=== PATIENT | male | born 1975 | race Caucasian/White ===

== ENCOUNTER → 2020-02-21 11:31 | Outpatient (BNVA) | payer OTHER, SELFPAY | PROVIDERS: PCP Nurse Practitioner Family; Visit Provider Surgery | DX: Z76.89 Persons encountering health services in other specified circumstances (principal) ==

== ENCOUNTER 2020-04-03 19:54 | Emergency (ER) | payer OTHER, SELFPAY ==
[2020-04-03 20:13] VITALS: BP 105/85; BP 115/84; PULSE 108; PULSE 99; RESP 15; TEMP 36.5; O2SAT 95; O2SAT 99; BMI 27.9
--- NOTE | 2020-04-03 20:36 | XR_ITS ---
EXAMINATION: XR CHEST CLINICAL INFORMATION: Chest pain COMPARISON: Chest x-ray 03/02/2020 TECHNIQUE: Frontal portable view of the chest was obtained. 8:40 PM FINDINGS: No significant abnormality is noted involving the heart, lungs, mediastinum, bony thorax or soft tissues. XR/XR chest 1V IMPRESSION: Unremarkable examination.
--- NOTE | 2020-04-03 20:36 | ED.OVERDOSE ---
HPI - Overdose General Chief Complaint: Overdose Stated Complaint: INCREASED WEAKNESS Time Seen by Provider: 04/03/20 20:34 History of Present Illness HPI Narrative: Patient is a 44-year-old male with a history of breast mass, status post resection about a month ago. Presented today with having chest pain that has been continuous for the last month or so. Patient because of the pain decided to take a Percocet from a friend. Subsequently got more nauseous. Patient denies any diaphoresis. No fever no chills. No coughing or congestion or upper respiratory symptoms. No diaphoresis. Positive history of hypertension. Ex-smoker last smokes 6 years ago. No history of high cholesterol. Never had a heart attack. Never had a stroke. Patient is from home. Never had a stress test. Related Data Home Medications Medication Instructions Recorded Confirmed citalopram 10 mg tablet 10 mg PO DAILY 02/20/20 02/21/20 quetiapine 300 mg tablet 300 mg PO BEDTIME 02/20/20 02/21/20 ibuprofen 600 mg tablet 600 mg PO Q6H PRN 02/21/20 02/21/20 losartan 25 mg tablet 25 mg PO DAILY 02/21/20 02/21/20 Previous Rx's Medication Instructions Recorded gabapentin 600 mg tablet 600 mg PO BID 30 Days #60 tab 03/13/20 Allergies Allergy/AdvReac Type Severity Reaction Status Date / Time No Known Allergies Allergy Verified 04/03/20 20:13 [No Known Allergies*] Review of Systems Review of Systems: Constitutional: No Weight loss, No Fever, No Chills, No Night Sweats, No Fatigue, No Malaise ENT/Mouth: No Hearing loss, No Ear Pain, No Nasal Congestion, No Sinus Pain, No Hoarseness, No sore throat, No Rhinorrhea, No Swallowing Difficulty Eyes: No Eye Pain, No Swelling, No Redness, No Foreign Body, No Discharge, No Vision Changes Cardiovascular: No Chest Pain, No SOB, No Dyspnea on Exertion, No Orthopnea, No Edema, No Palpitations Respiratory: No Cough, No Sputum, No Wheezing, No Smoke Exposure, No Dyspnea Gastrointestinal: No Nausea, No Vomiting, No Diarrhea, No Constipation, No abdominal Pain, No Hematochezia, No Melena Genitourinary: no irregular bleeding, No Dysuria, No Urinary Frequency, No Hematuria, No Urinary Incontinence, No Urgency, No Flank Pain, No Urinary Flow Changes, No Hesitancy Musculoskeletal: No joint pain, No Myalgias, No Joint Swelling Skin: No Skin Lesions, No rash Neuro: No Weakness, No Numbness, No Paresthesias, No Loss of Consciousness, No Dizziness, No Headache Psych: No Anxiety/Panic, No Depression, No SI/HI/AH/VH, No Social Issues, Heme/Lymph: No Bruising, No Bleeding,No Lymphadenopathy Endocrine: No Polyuria, No Polydipsia, No Temperature Intolerance [facility] Past Medical History Attestation statement: The following information was validated with the patient. Medical History History of gynecomastia (~02/13/20) Surgical History History of vasectomy Family History Family History Mother History of breast cancer Social History Social History Alcohol intake: never Smoking Status: Never smoker Use of substances other than those prescribed or required for medical reasons: Yes Substance Use Type: Painkillers Last Used Substance: Just Prior to Admission Advance Directives: No Advance Directives Information Provided: Yes Physical Exam Vital Signs: Vital Signs: Last Vital Signs Temp 97.7 F 04/03/20 23:35 Pulse 90 04/03/20 23:35 Resp 12 04/03/20 23:35 BP 104/62 04/03/20 23:35 Pulse Ox 97 04/03/20 23:35 Body Mass Index 27.9 Appearance: Alert. Oriented X3. No acute distress. Eyes: Pupils equal, round and reactive to light. ENT: Pharynx normal. Neck: Normal inspection. Neck supple. No lymph nodes noted. No crepitus CVS: Normal heart rate and rhythm. Pulses normal. Normal S1 and S2 Respiratory: No respiratory distress. Breath sounds normal. No Wheezing. No rales Abdomen: Soft and nontender. No rigidity. No distention. good BS x4 Skin: Skin warm and dry. Normal skin color. Normal skin turgor. Extremities: No lower extremity edema. Neurovascular intact to all extremities. No Lacerations. No Rash Neuro: Oriented X 3. No motor deficit. No sensory deficit. Moving all extermities. No slurred speech MDM - Overdose MDM Narrative Medical decision making narrative: Patient took doses of Percocet from the street subsequently became very nauseous. Patient's EKG showed a sinus pattern AK QRS QT within normal limits. There is no ST segment elevation. Patient's electrolytes were unremarkable. Monitor in the emergency department. One set of cardiac enzyme were ordered they were negative. They were ordered because patient had persistent pain greater than 6 hours that was atypical. Patient's heart score is less than 3 given risk factor atypical history normal EKG and normal troponin. Will have patient closely follow up on a outpatient basis. In stable condition. Patient's chest x-ray showed no evidence of rib fracture. There is no evidence of pneumothorax. Patient's D-dimer is less than 200 there is no evidence for having a blood clot. Will discharge patient home. Close follow-up on an outpatient basis. Differential Diagnosis Differential diagnosis: Likely poisoning by opiate or related narcotic Medical Records Attestation: I reviewed the patient's medical records. Lab Data Attestation: I reviewed the patient's lab results. Result diagrams: 04/03/20 21:17 04/03/20 21:17 Labs: Lab Results 04/03/20 04/03/20 04/03/20 Range/Units 21:17 21:17 21:17 WBC 10.7 (4.8-10.8) X10*3/uL RBC 4.11 L (4.60-5.80) X10*6/uL Hgb 12.5 L (14.0-18.0) g/dl Hct 37.6 L (42-52) % MCV 91.5 (80-98) fL MCH 30.4 (27.0-33.0) pg MCHC 33.2 (31.0-36.0) g/dl RDW 12.3 (11.0-16.0) % Plt Count 221 (160-400) X10*3/uL MPV 9.8 (9.4-12.4) fL Immature Gran % (Auto) 0.3 (0.0-0.4) % Neut % (Auto) 80.2 H (45-73) % Lymph % (Auto) 13.1 L (20-40) % Curry % (Auto) 5.7 (2-11) % Eos % (Auto) 0.4 (0-4) % Baso % (Auto) 0.3 (0-2) % Lymph # (Auto) 1.4 (1.2-4.9) X10*3/uL Curry # (Auto) 0.6 (0.1-1.2) X10*3/uL Eos # (Auto) 0.0 (0.0-0.4) X10*3/uL Baso # (Auto) 0.0 (0.0-0.2) X10*3/uL Abs Immat Gran (auto) 0.03 (0.00-0.03) X10*3/uL Absolute Neuts (auto) 8.6 H (2.0-8.3) X10*3/uL Absolute Nucleated RBC 0.000 (0.0-0.012) X10*3/uL Nucleated RBC % (auto) 0.0 (0.0-0.2) /100WBC D-Dimer NG/ML Sodium 141 (135-145) mmol/L Potassium 4.4 (3.3-5.1) mmol/l Chloride 106 (96-108) mmol/L Carbon Dioxide 28 (22-29) mmol/L Anion Gap 11 L (12-20) BUN 9 (9-16) mg/dL Creatinine 0.96 (0.5-1.4) mg/dL Estim Creat Clear Calc 112.2 Estimated GFR > 60 Random Glucose 102 (60-115) mg/dL Calcium 8.7 (8.4-10.2) mg/dL Total Bilirubin 0.7 (0.0-1.0) mg/dL Direct Bilirubin 0.3 (0.0-0.5) mg/dL AST 20 (5-37) U/L ALT 44 H (0-40) U/L Alkaline Phosphatase 36 L (39-117) U/L Troponin I High Sens < 3.5 (<3.5-35.0) ng/L Total Protein 6.2 L (6.5-8.0) g/dL Albumin 4.3 (3.5-5.0) g/dL Lipase 20 (8-78) U/L Salicylates < 5.0 L (15-30) mg/dL Acetaminophen < 1 (<30) mcg/mL Ethyl Alcohol mg/dL 04/03/20 04/03/20 Range/Units 21:17 23:39 WBC (4.8-10.8) X10*3/uL RBC (4.60-5.80) X10*6/uL Hgb (14.0-18.0) g/dl Hct (42-52) % MCV (80-98) fL MCH (27.0-33.0) pg MCHC (31.0-36.0) g/dl RDW (11.0-16.0) % Plt Count (160-400) X10*3/uL MPV (9.4-12.4) fL Immature Gran % (Auto) (0.0-0.4) % Neut % (Auto) (45-73) % Lymph % (Auto) (20-40) % Curry % (Auto) (2-11) % Eos % (Auto) (0-4) % Baso % (Auto) (0-2) % Lymph # (Auto) (1.2-4.9) X10*3/uL Curry # (Auto) (0.1-1.2) X10*3/uL Eos # (Auto) (0.0-0.4) X10*3/uL Baso # (Auto) (0.0-0.2) X10*3/uL Abs Immat Gran (auto) (0.00-0.03) X10*3/uL Absolute Neuts (auto) (2.0-8.3) X10*3/uL Absolute Nucleated RBC (0.0-0.012) X10*3/uL Nucleated RBC % (auto) (0.0-0.2) /100WBC D-Dimer < 200 NG/ML Sodium (135-145) mmol/L Potassium (3.3-5.1) mmol/l Chloride (96-108) mmol/L Carbon Dioxide (22-29) mmol/L Anion Gap (12-20) BUN (9-16) mg/dL Creatinine (0.5-1.4) mg/dL Estim Creat Clear Calc Estimated GFR Random Glucose (60-115) mg/dL Calcium (8.4-10.2) mg/dL Total Bilirubin (0.0-1.0) mg/dL Direct Bilirubin (0.0-0.5) mg/dL AST (5-37) U/L ALT (0-40) U/L Alkaline Phosphatase (39-117) U/L Troponin I High Sens (<3.5-35.0) ng/L Total Protein (6.5-8.0) g/dL Albumin (3.5-5.0) g/dL Lipase (8-78) U/L Salicylates (15-30) mg/dL Acetaminophen (<30) mcg/mL Ethyl Alcohol < 10 mg/dL ECG Data Interpretation: Sinus heart rate is 80 AK QRS QT within normal limits there is no ST segment elevation noted. Discharge Plan Discharge Clinical Impression: Chest pain, Nausea, Narcotic overdose Patient Disposition: Home, Self-Care Instructions: Chest Pain (ED), Narcotic Safety (ED) Prescriptions: No Action gabapentin 600 mg tablet 600 mg PO BID 30 Days Qty: 60 RF: 1 ibuprofen 600 mg tablet 600 mg PO Q6H PRN (Reason: pain) RF: 0 losartan 25 mg tablet 25 mg PO DAILY RF: 0 quetiapine [Seroquel] 300 mg tablet 300 mg PO BEDTIME RF: 0 citalopram [Celexa] 10 mg tablet 10 mg PO DAILY RF: 0 Referrals: Jorge Solis, [facility] [Primary Care Provider] - 2 days (Please stop using narcotics given by your friend. Doing this could kill you. Please go to detox.)
--- NOTE | 2020-04-03 20:39 | ECG_ITS ---
Test Reason : OVERDOSE Blood Pressure : / mmHG Vent. Rate : 084 BPM Atrial Rate : 084 BPM P-R Int : 162 ms QRS Dur : 080 ms QT Int : 350 ms P-R-T Axes : 045 033 034 degrees QTc Int : 413 ms Normal sinus rhythm Normal ECG When compared with ECG of 01-NOV-2019 19:24, Heart rate has decreased Referred By: Malgorzata Tavarez Electronically Signed By:LIDIA BARON MD
[2020-04-03 20:58] VITALS: BP 104/68; PULSE 97; RESP 11; TEMP 36.4; O2SAT 97
[2020-04-03] MEDS: 0.9 % Sodium Chloride 1,000 ML 999 ML IVCONT (21:06)
[2020-04-03 21:41] LABS: Basophils Percent Auto 0.3 % (0-2); Eosinophils Percent Auto 0.4 % (0-4); Hematocrit 37.6 % (42-52); Hemoglobin 12.5 g/dl (14.0-18.0); Imm Gran Abs Auto 0.03 X10*3/uL (0.00-0.03); Imm Gran Pct Auto 0.3 % (0.0-0.4); Lymphocytes Absolute Auto 1.4 X10*3/uL (1.2-4.9); Lymphocytes Percent Auto 13.1 % (20-40); MANUAL DIFF FLAG NO; Mean Corpuscular HGB Conc 33.2 g/dl (31.0-36.0); Mean Corpuscular Hemoglobin 30.4 pg (27.0-33.0); Mean Corpuscular Volume 91.5 fL (80-98); Mean Platelet Volume 9.8 fL (9.4-12.4); Monocytes Absolute Auto 0.6 X10*3/uL (0.1-1.2); Monocytes Percent Auto 5.7 % (2-11); Neutrophils Absolute Auto 8.6 X10*3/uL (2.0-8.3); Neutrophils Percent Auto 80.2 % (45-73); Platelet Count 221 X10*3/uL (160-400); Red Blood Count 4.11 X10*6/uL (4.60-5.80); Red Cell Distribution Width 12.3 % (11.0-16.0); White Blood Count 10.7 X10*3/uL (4.8-10.8)
[2020-04-03 22:13] LABS: Ethanol < 10 mg/dL
[2020-04-03 22:18] LABS: Alanine Aminotransferase 44 U/L (0-40); Albumin Level 4.3 g/dL (3.5-5.0); Alkaline Phosphatase 36 U/L (39-117); Anion Gap 11 (12-20); Aspartate Amino Transferase 20 U/L (5-37); Bilirubin Direct 0.3 mg/dL (0.0-0.5); Bilirubin Total 0.7 mg/dL (0.0-1.0); Blood Urea Nitrogen 9 mg/dL (9-16); Calcium 8.7 mg/dL (8.4-10.2); Carbon Dioxide 28 mmol/L (22-29); Chloride 106 mmol/L (96-108); Creatinine Clr Calc Pharmacy 112.2; Estimated Glomerular Filt Rate > 60; Glucose Random 102 mg/dL (60-115); Lipase 20 U/L (8-78); Potassium 4.4 mmol/l (3.3-5.1); Salicylate < 5.0 mg/dL (15-30); Sodium 141 mmol/L (135-145); Total Protein 6.2 g/dL (6.5-8.0)
[2020-04-03 22:20] LABS: Troponin-I High Sensitivity < 3.5 ng/L (<3.5-35.0)
[2020-04-03 23:06] VITALS: BP 98/54; PULSE 79; RESP 18; TEMP 36.9; O2SAT 98
[2020-04-03 23:35] VITALS: BP 104/62; PULSE 90; RESP 12; TEMP 36.5; O2SAT 97
[2020-04-03 23:41] LABS: Acetaminophen LAB < 1 mcg/mL (<30)
[2020-04-03 23:55] LABS: D Dimer < 200 NG/ML
[2020-04-04 00:31] VITALS: BP 97/66; PULSE 95; RESP 12; TEMP 36.9; O2SAT 95
== END 2020-04-04 00:32 | disposition home or self-care (01) ==
PROVIDERS: Emergency Provider Emergency Medicine Emergency Medical Services; PCP Nurse Practitioner Family
DX: R07.9 Chest pain, unspecified (principal); T40.1X1A Poisoning by heroin, accidental (unintentional), initial encounter; R11.0 Nausea; Y92.9 Unspecified place or not applicable; Z79.899 Other long term (current) drug therapy
CPT/HCPCS: 36415; 71045; 80053; 80076; 80320; 82248; 83690; 84484; 85025; 85379; 93005; 96360; 99284; 99285; G0480

== ENCOUNTER 2020-04-05 20:22 | Emergency (ER) | payer OTHER, SELFPAY ==
[2020-04-05 20:29] VITALS: BP 115/80; BP 128/91; PULSE 106; PULSE 112; RESP 18; TEMP 36.8; O2SAT 97; O2SAT 98; BMI 27.9
--- NOTE | 2020-04-05 20:43 | PC.NURSE ---
PT S/F IN BED, RR EVEN UNLABORED, SKIN WPD, AOX3. PT REPORTS TAKING 2-3 5MG PERCOCET FOR PAIN RELIEF AND NEXT THING HE KNEW HE WAS WAKING UP ON THE FLOOR WITH FAMILY AND EMS NEXT TO HIM. THIS RN SPOKE WITH PT'S MOTHER WHO REQUESTED HE BE SECTIONED D/T OVERDOSING 3X THIS WEEK, SHE IS CONCERNED HE IS A SELF HARM RISK. PT ADAMANTLY DENIES SI, DENIES ANY SELF HARM INTENT. PT REPORTS FEELING GENERALLY UNWELL, NO SPECIFIC COMPLAINTS. PT CHANGED INTO HOSPITAL ATTIRE, BELONGINGS PLACED IN LOCKER #10. PT AWAITING PRIMARY PROVIDER WALKER, NATE, JAM, NSR ON TELE.
--- NOTE | 2020-04-05 20:49 | ED.OVERDOSE ---
HPI - Overdose General Chief Complaint: Overdose Stated Complaint: od Time Seen by Provider: 04/05/20 20:49 Source: patient Mode of arrival: EMS Limitations: no limitations History of Present Illness HPI Narrative: This is a 44-year-old male who is brought in by EMS after he states he took 2-3 5 mg old Percocets that he has had for number of months and then he states that he fell asleep but denies that this was any attempt to take his life and clearly states that no I coli 1 live it was complete accident and I feel like a full . As per EMS note patient's mother had found the patient unresponsive, initiated CPR briefly, EMS administered 4 mg of Narcan with immediate response. In addition, patient received 4 mg of Zofran by EMS. Otherwise, patient denies any recent fevers, chills, feelings of depression, suicidal ideation. Related Data Home Medications Medication Instructions Recorded Confirmed citalopram 10 mg tablet 10 mg PO DAILY 02/20/20 02/21/20 quetiapine 300 mg tablet 300 mg PO BEDTIME 02/20/20 02/21/20 ibuprofen 600 mg tablet 600 mg PO Q6H PRN 02/21/20 02/21/20 losartan 25 mg tablet 25 mg PO DAILY 02/21/20 02/21/20 Previous Rx's Medication Instructions Recorded gabapentin 600 mg tablet 600 mg PO BID 30 Days #60 tab 03/13/20 Allergies Allergy/AdvReac Type Severity Reaction Status Date / Time No Known Allergies Allergy Verified 04/03/20 20:13 [No Known Allergies*] Review of Systems Review of Systems: Pertinent positives and negatives as stated in HPI and 10 point review of systems is otherwise negative. [facility] Past Medical History Source: nursing notes reviewed Medical History Bipolar 1 disorder History of gynecomastia (~02/13/20) Hypertension Surgical History History of vasectomy Family History Family History Mother History of breast cancer Social History Social History Alcohol intake: never Smoking Status: Never smoker Use of substances other than those prescribed or required for medical reasons: Yes Substance Use Type: Opiates Substance Use Frequency: Recent Binge Last Used Substance: Just Prior to Admission Any prior treatment program specific to substance use: No Advance Directives: No Physical Exam Vital Signs: Vital Signs: Last Vital Signs Temp 97.9 F 04/05/20 22:00 Pulse 100 04/05/20 22:00 Resp 16 04/05/20 22:00 BP 111/82 04/05/20 22:00 Pulse Ox 99 04/05/20 22:00 Body Mass Index 27.9 VITAL SIGNS: Reviewed. GENERAL: Well developed, well nourished, in no acute distress. HEAD: Normocephalic/atraumatic, EYES: PERRLA, EOMI intact without pain, no nystagmus/pallor/icterus noted EARS: Ext canals without abnormality, TMs non-bulging and non-erythematous NOSE: Nares patent bilateral OROPHARYNX: no oral lesions noted, posterior pharynx clear and non-erythematous without noted tonsillar enlargement/erythema/exudates NECK: Supple, no adenopathy LUNGS: Normal breath sounds. No adventitious sounds or accessory muscle use. SpO2<97> CARDIOVASCULAR: Regular rate and rhythm without noted murmurs, no JVD or lower extremity edema. ABDOMEN: Soft, non-tender, non-distended with bowel sounds. No rigidity. No guarding. No palpable masses or hernias noted MUSCULOSKELETAL: No tenderness, deformities, or effusions noted on gross inspection. EXTREMITIES: No cyanosis, clubbing or edema. SKIN: Inspection of the skin reveals no rashes, ulcerations, jaundice, pallor, or petechiae. NEUROLOGIC: Alert and oriented x 4. Strength and sensation to light touch were grossly intact x 4. Course Course Course Narrative: This is a 44-year-old male with history and clinical presentation consistent with Percocet overdose and although patient denies any feelings of wanting to harm himself the mother has called couple of times in discussed with Nursing her concerns regarding his state of mind stating that this is his 3rd time of overdosing this week . On review emergency room documentation it is noted the patient was evaluated on 04/03/2020 for complaints of chest pain 1 month postop of breast mass removal. The provider at that time describes a workup for atypical chest pain, however makes no note regarding overdose however does note that patient had taken a Percocet off of the street. The Care Team came by and provided the patient with additional outpatient resources and reaffirms that patient does not have thoughts of harming himself. On further discussion with the patient he states he did have a remote history of a suicide attempt this was done via hanging and circumstances surrounding that were emotional distress regarding a relationship. However, he denies any subsequent attempts on his life and again repeats that he has no intention harming himself and that this evening was a complete accident. Patient is felt to be a safe discharge to home and will be contacting his son for transport. Patient will be discharged with home Narcan. Discharge Plan Discharge Clinical Impression: Overdose Qualifiers: Encounter type: initial encounter Injury intent: accidental or unintentional Qualified Code(s): T50.901A - Poisoning by unspecified drugs, medicaments and biological substances, accidental (unintentional), initial encounter Patient Disposition: Home, Self-Care Instructions: Adult Overdose (ED) Additional Instructions: Recommend [id number] lidocaine patches that are available in any drug store for your concerns regarding nipple burning. If you are feeling depressed or as though you would prefer to cause harm to yourself please do not hesitate to return immediately to the emergency department by calling 911. The patient and/or family acknowledge understanding of results (as applicable), diagnosis, treatment plan, need for follow up, and symptoms that should prompt a return to the emergency room. Prescriptions: No Action gabapentin 600 mg tablet 600 mg PO BID 30 Days Qty: 60 RF: 1 ibuprofen 600 mg tablet 600 mg PO Q6H PRN (Reason: pain) RF: 0 losartan 25 mg tablet 25 mg PO DAILY RF: 0 quetiapine [Seroquel] 300 mg tablet 300 mg PO BEDTIME RF: 0 citalopram [Celexa] 10 mg tablet 10 mg PO DAILY RF: 0 Referrals: Physician,Unknown [Primary Care Provider] - 2 days
--- NOTE | 2020-04-05 21:52 | MHC.CARE ---
CARE team met with this patient in ED9 at staff request to offer recovery supports. Patient reports he had an accidental overdose on two old percocets that he states were his own prescription. Patient was at times not an accurate historian. Patient report sometimes was in contradiction to his medical record. Patient denies SI/HI/AVH and reports no safety concerns. CARE team spoke to patient about pain management and having a conversation with his doctor on Tuesday (patient has a scheduled appointment) as his current med regimen is still leaving him in pain. Patient had surgery a few weeks ago, and is also in need of a repair on a surgery from his 20s. CARE team attempted to talk to patient about ways to avoid putting himself in unnecessary risk. Provided empathic listening and support and emphasized that pain can often cause us to make illogical or unsafe decisions in the search for relief. Patient was able to engage in the conversation but repeats that he is not a risk and has learned [his] lesson. Asks if ED staff can have his son pick him up when he is ready to be discharged, and states he is very thirsty. CARE team coordinated with patient's nurse. Provided patient with printed recovery resources. Patient does not appear receptive to engaging in any additional treatment at this time.
[2020-04-05 22:00] VITALS: BP 111/82; PULSE 100; RESP 16; TEMP 36.6; O2SAT 99
== END 2020-04-05 23:03 | disposition home or self-care (01) ==
PROVIDERS: Emergency Provider Student in an Organized Health Care Education/Training Program
DX: T40.2X1A Poisoning by other opioids, accidental (unintentional), initial encounter (principal); Y92.9 Unspecified place or not applicable; Z79.899 Other long term (current) drug therapy
CPT/HCPCS: 99284; 99285

== ENCOUNTER 2020-04-25 13:27 | Outpatient (REF) | payer OTHER, SELFPAY ==
--- NOTE | 2020-04-25 13:30 | US_ITS ---
EXAMINATION: US SCROTUM CLINICAL INFORMATION: Scrotal pain. COMPARISON: None TECHNIQUE: A sonogram of the scrotum was performed assessing wagner-scale appearance and color Doppler flow. Spectral Doppler analysis of the arterial and venous flow were performed in the testes bilaterally. FINDINGS: RIGHT: Right testicle measures 4.2 x 2.2 x 2.7 cm, volume 13.0 mL. No focal testicular parenchymal lesions are visualized. There is normal bilateral symmetric intratesticular color flow. Right epididymal head is normal in size. No right hydrocele or varicocele is seen. LEFT: Left testicle measures 3.6 x 2.5 x 2.6 cm, volume 12.0 mL. No focal testicular parenchymal lesions are visualized. There is normal bilateral symmetric intratesticular color flow. Left epididymal head is normal in size. There is a tiny epididymal head cysts measuring only 4 x 3 x 2 mm. No left hydrocele or varicocele is seen. US/US scrotum IMPRESSION: 1. Testicles symmetric in size and color flow. No intratesticular mass. 2. Small left epididymal head cyst under 5 mm. No hydrocele.
== END 2020-04-25 13:28 | disposition home or self-care (01) ==
LOC: HO.HMGCX 13:27
PROVIDERS: PCP Nurse Practitioner Family; Visit Provider Nurse Practitioner Family
DX: N50.82 Scrotal pain (principal)
CPT/HCPCS: 76870

== ENCOUNTER 2020-05-05 12:09 | Outpatient (REF) | payer OTHER, SELFPAY | END 2020-05-05 12:10 | disposition home or self-care (01) | LOC: HO.LAB 12:09 | PROVIDERS: PCP Nurse Practitioner Family; Visit Provider Internal Medicine | DX: Z20.828 Contact with and (suspected) exposure to other viral communicable diseases (principal) | CPT/HCPCS: C9803; U0003 ==

== ENCOUNTER → 2020-05-06 08:55 | Outpatient (BNVA) | payer OTHER, SELFPAY | PROVIDERS: PCP Nurse Practitioner Family; Referring Provider Nurse Practitioner Family; Visit Provider Surgery | DX: N62 Hypertrophy of breast (principal) | CPT/HCPCS: 99212 ==

== ENCOUNTER 2020-05-13 10:37 | Outpatient (REF) | payer OTHER, SELFPAY ==
[2020-05-14 07:42] LABS: Syphilis Screen Nonreactive (Nonreactive)
[2020-05-14 09:20] LABS: HIV AB/AG Nonreactive (Nonreactive); HIV Num 1 0.16 S/CO (0.00-0.99)
[2020-05-14 14:17] LABS: N. gonorrhoeae RNA TMA NOT DETECTED (NOT DETECTED)
[2020-05-15 15:20] LABS: C. trachomatis RNA TMA NOT DETECTED (NOT DETECTED)
== END 2020-05-13 10:38 | disposition home or self-care (01) ==
LOC: HO.HMGCLDS 10:37
PROVIDERS: PCP Nurse Practitioner Family; Visit Provider Nurse Practitioner Family
DX: Z11.3 Encounter for screening for infections with a predominantly sexual mode of transmission (principal)
CPT/HCPCS: 86780; 87389; 87491; 87591

== ENCOUNTER → 2020-05-22 08:56 | Outpatient (BNVA) | payer OTHER, SELFPAY | PROVIDERS: PCP Nurse Practitioner Family; Referring Provider Nurse Practitioner Family; Visit Provider Urology | DX: N50.819 Testicular pain, unspecified (principal) | CPT/HCPCS: 99202 ==

== ENCOUNTER 2020-05-28 07:14 | Day surgery (SDC) | payer OTHER, SELFPAY ==
[2020-05-19 17:43] VITALS: BMI 27.9
--- NOTE | 2020-05-27 10:57 | HO.ANESPROP2 ---
Documented by User: Millie Cardenas 05/27/20 11:02 HPI - Anesthesia Eval Consult details Narrative: 45yo M for Breast Mass Excision, Left Right breast mass excision 01/2020 with [facility] 5 PMFSH Past Medical History Medical History Back pain Bipolar 1 disorder History of gynecomastia (~02/13/20) Hypertension Opioid abuse Family History Family History Mother History of breast cancer Surgical History Surgical History History of breast lump/mass excision History of vasectomy Social History Social History Alcohol intake: never Smoking Status: Former smoker Smoked in Last 30 Days: No Smoking Quit Date: 2013 Use of substances other than those prescribed or required for medical reasons: No Substance Use Type: Opiates Advance Directives: Yes Advance Directives Information Provided: Yes Advance Directives on File: Yes Advance Directives Date on File: 05/28/20 Recently lost weight without trying: No Meds Allergies Allergy/AdvReac Type Severity Reaction Status Date / Time No Known Allergies Allergy Verified 05/28/20 07:43 [No Known Allergies*] Home Medications Medication Instructions Recorded Confirmed Type citalopram 10 mg tablet 10 mg PO DAILY 02/20/20 05/19/20 History quetiapine 300 mg tablet 300 mg PO BEDTIME 02/20/20 05/19/20 History Exam Exam Date and Time: May 27, 2020 1057 Height,Weight and Vital Signs: Height 5 ft 10 in Weight 88.451 kg Pertinent Lab Results Pertinent Lab Results: Laboratory Tests 04/03/20 04/03/20 21:17 21:17 WBC 10.7 Hgb 12.5 L Hct 37.6 L Plt Count 221 Sodium 141 Potassium 4.4 Chloride 106 Carbon Dioxide 28 BUN 9 Creatinine 0.96 Narrative Narrative: EKG 03/2020: NSR Assessment and Plan Assessment Anesthesia Assessment: Chart Reviewed Documented by User: Tavo Hamilton 05/28/20 09:42 PMFSH Past Medical History Medical History Back pain Bipolar 1 disorder History of gynecomastia (~02/13/20) Hypertension Opioid abuse Family History Family History Mother History of breast cancer Family history of problems with anesthesia: No Surgical History Surgical History History of breast lump/mass excision History of vasectomy History of Problems with Anesthesia: No Social History Social History Alcohol intake: never Smoking Status: Former smoker Smoked in Last 30 Days: No Smoking Quit Date: 2013 Use of substances other than those prescribed or required for medical reasons: No Substance Use Type: Opiates Advance Directives: Yes Advance Directives Information Provided: Yes Advance Directives on File: Yes Advance Directives Date on File: 05/28/20 Recently lost weight without trying: No Meds Allergies Allergy/AdvReac Type Severity Reaction Status Date / Time No Known Allergies Allergy Verified 05/28/20 07:43 [No Known Allergies*] Home Medications Medication Instructions Recorded Confirmed Type citalopram 10 mg tablet 10 mg PO DAILY 02/20/20 05/19/20 History quetiapine 300 mg tablet 300 mg PO BEDTIME 02/20/20 05/19/20 History Exam Airway Mallampati Class: I TM Dist: >3cm Neck ROM: Full Denture: Upper (Fixed in place, will leave in.) Partial: Lower Loose/Missing/Broken Teeth: No Assessment and Plan Assessment Anesthesia Assessment: Anesthesia Plan Discussed and Chart Reviewed Final Anesthetic Review NPO: Yes ASA Class: II Final Preanesthetic Review: No Changes in Pt Med Stat, Meds/Allgs Chart Reviewed, Consent Obtained/Reviewed and Anes Risks/Benef Reviewed Patient Risk: Low Procedure Risk: Low Anesthetic Plan Anesthetic Plan: Agree w/ Assess. and Plan Disposition: Standard PACU
[2020-05-28 07:48] VITALS: BP 108/72; PULSE 104; RESP 18; TEMP 36.1; O2SAT 99
[2020-05-28] MEDS: Lactated Ringers 1,000 ML 100 ML IVCONT (08:03)
[2020-05-28] MEDS: ceFAZolin Sodium/Dextrose,Iso 2 GM/50 ML PIGGYBACK IV (08:06)
--- NOTE | 2020-05-28 09:25 | MHC.SHP ---
Pre-Procedural Eval Section A The patient is an INPATIENT: No Changes since office visit: Yes Patient answered all questions; No Cold of Flu in the past 2 weeks, No New Medical Problems and No Changes in Medication The History & Physical has been completed within 30 days and I have reviewed it.: Yes Section B Chief Complaint: hypertrophy of breast Allergies: Allergies Allergy/AdvReac Type Severity Reaction Status Date / Time No Known Allergies Allergy Verified 05/28/20 07:43 [No Known Allergies*] Plan I have reviewed the history and physical and performed a pertinent physical examination on my patient. No changes have occurred unless specified.
[2020-05-28 11:05] VITALS: BP 116/77; PULSE 64; RESP 16; TEMP 36.3; O2SAT 100
[2020-05-28 11:10] VITALS: BP 107/71; PULSE 70; RESP 18; O2SAT 98
--- NOTE | 2020-05-28 11:11 | P.OP_ITS ---
Operative Note Operative Note Date of Service: 05/28/20 Narrative: Preoperative diagnosis: Left gynecomastia Postoperative diagnosis: Same Procedure: Excision of left gynecomastia Transliterator: Nell Evans PA-C Anesthesia: General laryngeal mask Specimen: Left breast tissue Estimated blood loss: 8 cc Immediate complications: None Indications: This is a 45-year-old gentleman who has experienced slow enlargement and increasing tenderness involving the left breast tissue. He has a prior history of excision of right gynecomastia. Excision is planned. Procedure in detail: With patient in supine position after induction of adequate general anesthesia, the left chest wall was prepped with ChloraPrep and was draped sterilely. Time-out procedure was performed. The extent of the excision was marked on the skin. Skin and subcutaneous tissues were infiltrated with local anesthetic an additional local anesthetic infiltration was carried out during the procedure. The periareolar incision was made involving the inferior half of the areolar circumference. Incision was carried into the subcutaneous tissues. Combination of electrosurgical pencil and Metzenbaum dissection was then employed to raise a skin flap to beyond the cephalad aspect of the area of gynecomastia. The deep aspect of the process was then divided from caudad to cephalad using the electrosurgical pencil, and medial and lateral the tissues were divided as the dissection continued. The superior margin was divided last. The wound was copiously irrigated with saline solution and was inspected for bleeding. Minor bleeding was noted and was controlled using the cautery. The inferior skin flap was then developed for a distance of about 2 cm. Subcutaneous tissues were reapproximated using interrupted sutures of 3 0 Polysorb. A quarter-inch Sumner drain was trimmed and was placed in the depth of the wound and brought out through the lateral corner of the incision. Skin was then closed with interrupted dermal sutures of 3-0 Polysorb and a subcuticular suture of 4-0 Polysorb. Steri-Strips and a dry sterile dressing were applied. He tolerated the procedure well and was transported to the recovery room in stable condition. Sponge and sharp counts were correct.
[2020-05-28 11:15] VITALS: BP 117/83; PULSE 70; RESP 18; O2SAT 99
[2020-05-28] MEDS: Ketorolac Tromethamine 15 MG/ML VIAL IVPUSH (11:16)
[2020-05-28] MEDS: Acetaminophen 325 MG TABLET 650 MG PO (11:17)
[2020-05-28] MEDS: oxyCODONE HCl Immed Release 5 MG TABLET 10 MG PO (11:18)
[2020-05-28 11:20] VITALS: BP 110/82; PULSE 66; RESP 18; O2SAT 98
[2020-05-28 11:35] VITALS: BP 111/75; PULSE 63; RESP 20; TEMP 36.2; O2SAT 99
--- NOTE | 2020-05-28 11:57 | HO.POSTANES ---
Post Anesthesia Evaluation Post Anesthesia Evaluation Vital Signs: Vital Signs Temp Pulse Resp BP Pulse Ox 05/28/20 11:35 97.1 F 63 20 111/75 99 05/28/20 11:20 66 18 110/82 98 05/28/20 11:15 70 18 117/83 99 05/28/20 11:10 70 18 107/71 98 05/28/20 11:05 97.4 F 64 16 116/77 100 05/28/20 07:48 96.9 F 104 H 18 108/72 99 Anesthesia: General LMA Mental Status: Awake Pain Control: Satisfactory Nausea/Vomiting: None Hydration: Adequate Anesthesia-Related Issues: No Anes. Related Issues
== END 2020-05-28 12:09 | disposition home or self-care (01) ==
PROVIDERS: PCP Nurse Practitioner Family; Visit Provider Surgery
PROC: (CPT 19120; principal; 2020-05-28 09:00)
DX: N62 Hypertrophy of breast (principal); I10 Essential (primary) hypertension; F31.9 Bipolar disorder, unspecified; F11.10 Opioid abuse, uncomplicated; Z80.3 Family history of malignant neoplasm of breast; Z79.899 Other long term (current) drug therapy
CPT/HCPCS: 19300; 88305; 88307; J0690; J1100; J1885; J2250; J2405; J3010

== ENCOUNTER → 2020-06-11 14:56 | Outpatient (BNVA) | payer OTHER, SELFPAY | PROVIDERS: PCP Nurse Practitioner Family; Visit Provider Surgery | DX: N62 Hypertrophy of breast (principal) | CPT/HCPCS: 99212 ==

== ENCOUNTER 2020-06-24 12:35 | Outpatient (REF) | payer OTHER, SELFPAY | END 2020-06-24 12:36 | disposition home or self-care (01) | LOC: HO.LAB 12:35 | PROVIDERS: PCP Nurse Practitioner Family; Visit Provider Internal Medicine | DX: Z20.822 Contact with and (suspected) exposure to COVID-19 (principal) | CPT/HCPCS: 36415; C9803; U0003; U0005 ==

== ENCOUNTER → 2020-07-01 10:53 | Outpatient (BNVA) | payer OTHER, SELFPAY | PROVIDERS: PCP Nurse Practitioner Family; Visit Provider Nurse Practitioner Family | DX: M47.22 Other spondylosis with radiculopathy, cervical region (principal) | CPT/HCPCS: 99202 ==

== ENCOUNTER → 2020-07-03 09:30 | Outpatient (BNVA) | payer OTHER, SELFPAY | PROVIDERS: PCP Nurse Practitioner Family; Visit Provider Urology | DX: N50.819 Testicular pain, unspecified (principal) | CPT/HCPCS: 64425; 99212 ==

== ENCOUNTER → 2020-07-10 08:10 | Outpatient (BNVA) | payer OTHER, SELFPAY | PROVIDERS: PCP Nurse Practitioner Family; Visit Provider Urology | DX: R10.31 Right lower quadrant pain (principal) | CPT/HCPCS: 64425; 99212 ==

== ENCOUNTER 2020-07-15 07:52 | Outpatient (REF) | payer OTHER, SELFPAY ==
--- NOTE | ~2020-07-15 | XR_ITS ---
EXAMINATION: PRE-MRI SCREENING CLINICAL INFORMATION: Pellet to left lower leg COMPARISON: None TECHNIQUE: 2 views of the left lower leg FINDINGS: Bone alignment is normal. No fracture or dislocation is seen. The joint spaces are normal. The soft tissues are normal. No radiopaque soft tissue foreign body is seen. XR/XR pre mri screening IMPRESSION: No radiopaque soft tissue foreign body seen.
--- NOTE | ~2020-07-15 | MR_ITS ---
MR CERVICAL SPINE WITHOUT CONTRAST CLINICAL INFORMATION: Spondylosis with radiculopathy, cervical region. COMPARISON: Cervical spine radiographs 04/23/2015. TECHNIQUE: MRI of the cervical spine was obtained using routine sequences without contrast. FINDINGS: Cervical alignment is maintained. The vertebral body heights are preserved. Multilevel anterior endplate osteophytes, the largest at the C4-C7 levels. There is no bone marrow edema. There are no acute fractures. Mild disc volume loss at C5-C6. The craniocervical junction is unremarkable. The partially imaged posterior fossa is unremarkable. There is no cord signal abnormality accounting for artifact. The cervical arterial flow voids are maintained. There are no significant soft tissue findings. C2-C3: Disc contour is normal. No central canal stenosis and no foraminal stenosis. C3-C4: Disc contour is normal. No central canal stenosis and no foraminal stenosis. C4-C5: Uncovertebral joint spurring and facet arthropathy result in mild left-sided foraminal encroachment. No central canal and no right foraminal stenosis. C5-C6: Disc contour normal. No central canal stenosis and no foraminal stenosis. C6-C7: Disc osteophyte without central canal stenosis. No foraminal stenosis. C7-T1: Slight annular disc bulge. No central canal stenosis. Uncovertebral joint spurring and facet arthropathy result in mild left-sided foraminal encroachment. MR/MR cervical spine wo con IMPRESSION: Mild cervical spondylosis. No severe central canal stenosis and no severe foraminal stenosis within the cervical spine.
== END 2020-07-15 07:53 | disposition home or self-care (01) ==
LOC: HO.MRI 07:52
PROVIDERS: Visit Provider Anesthesiology
DX: M47.22 Other spondylosis with radiculopathy, cervical region (principal)
CPT/HCPCS: 72141

== ENCOUNTER → 2020-07-18 12:48 | Outpatient (BNVA) | payer OTHER, SELFPAY | PROVIDERS: PCP Nurse Practitioner Family; Visit Provider Urology | DX: R10.31 Right lower quadrant pain (principal) | CPT/HCPCS: 64425; 99212 ==

== ENCOUNTER → 2020-07-25 09:53 | Outpatient (BNVA) | payer OTHER, SELFPAY | PROVIDERS: PCP Nurse Practitioner Family; Visit Provider Urology | DX: R10.31 Right lower quadrant pain (principal); R10.32 Left lower quadrant pain | CPT/HCPCS: 99212 ==

== ENCOUNTER → 2021-01-28 11:26 | Outpatient (BNVA) | payer OTHER, SELFPAY | PROVIDERS: Visit Provider Urology | DX: R10.31 Right lower quadrant pain (principal); R10.32 Left lower quadrant pain | CPT/HCPCS: 99212 ==

== ENCOUNTER 2021-02-27 10:42 | Outpatient (REF) | payer OTHER, SELFPAY ==
[2021-02-27 11:29] LABS: COVID-19 Test Negative (Negative)
== END 2021-02-27 10:43 | disposition home or self-care (01) ==
LOC: HO.LAB 10:42
PROVIDERS: PCP Nurse Practitioner Family; Visit Provider Internal Medicine
DX: Z20.822 Contact with and (suspected) exposure to COVID-19 (principal)
CPT/HCPCS: 36415; 87635; C9803

== ENCOUNTER 2021-03-26 09:00 | Outpatient (RCR) | payer OTHER, SELFPAY ==
--- NOTE | 2021-02-25 14:03 | MHC.PT.EP ---
[facility] [place] Office [place] Office [place] Office [address] Ana Laura Rodriguez [address] [facility] [phone] F: [phone] F: [phone] F: [phone] F: [phone] Physical Therapy Plan of Care Date of Evaluation: Date of Surgery: Diagnosis: Assessment: The patient arrived reporting groin and testicle pain occurring bilaterally. It seems to change with position and activity level. After an orthopedic screen. He had signs of a pinched nerve occurring at L1-2. He has inguinal pain that is provoked with pressure at T12/L1 region. He had weakness in myotome of L1, and he had improvement in groin pain when L1 was gapped positionally. He is an excellent candidate for skilled PT to address his pain, weakness, and decreased functional mobility. He has pain during sexual activity, but it seems to be pain during a posterior pelvic tilt versus use of sexual organ. No pain with erection or ejaculation. No urinary incontinence or fecal incontinence. Pain occurs with bearing down which again causes a PPT. Heavy education was given on a HEP to help reduce pain, sitting and sleeping posture, and body mechanics during sexual activity, bending, lifting and other functional tasks. If no improvement is seen in 2-3 visits I will focus more on groin/nerve pain/injury in the pelvic region. The patient is in aggreance with education. Frequency and Duration: The patient will be seen 2x/week x 4 weeks. Short Term Goals: 1. 1. The patient to demonstrate good sitting posture with use of lumbar roll to decrease lumbar strain. 2. Pt to have improved understanding of proper posture and support while sleeping. 3. Pt to demonstrate understanding of initial HEP. [employer] Goals: 1. Pt to be able to show improved PFM contraction during functional movements such as a bridge or squat to help prevent or limit POP. 2. Pt to be able to return to PLOF such as sexual activity, lifting and bending without limiting pain. 3. Pt to be independent with management of HEP. Treatment Plan: Modalities to reduce pain, spasms and effusion. Manual therapy to restore motion and function. Therapeutic exercise to improve strength and flexibility. Neuromuscular re-education for posture and balance. Therapeutic activities to return to functional activities of daily living. Electronically signed by: Zahida Carrasco PT DPT Please sign and return to therapist. Thank you for your referral.
--- NOTE | 2021-03-13 07:56 | MHC.PT.PR ---
[facility] [place] Office [place] Office [place] Office [address] Ana Laura Rodriguez [address] [phone] F: [phone] F: [phone] F: [phone] F: [phone] Physical Therapy Progress Note Diagnosis: pelvic pain Date of Surgery: Date of Evaluation: 02/25/21 Treatments to Date: 3 Cancellations to Date: No Shows to Date: Subjective: I am still having groin pain. It is very intense. My exercises make my groin pain increase. Pain Score and Location: 8 Objective Measures: please see eval Assessment: Pt improved compliance with HEP. During lumbar traction he feels no groin pain during the pull phase, but pain returns upon relaxation. He had diffuse, general achiness with palpation of the adductor tendon proximally, but no specific pain. Additionally, no pain and good strength noted with resistance of adductors, and hip flexors, and transverse abdominis. Therefore, I am able to r/o a groin muscle injury. I am suspicious of L1 nerve compression causing referred groin pain due to pain that relieves with traction, and decreased pain in prone. Increased pain with flexion which is consistent with a posterolateral derangement of the upper lumbar spine. He may benefit from diagnostic imaging to r/o lumbar spine. Next session I will do a rectal exam to assess his prostate for an increase in size/ pain. He has reported recent urinary changes such as pain with urination and a change in his stream/flow and severe pain with BM's. May need more diagnostic tests to r/o the prostate. Generally his pain is sounding radicular in nature and I will also do nerve glides to obturator, and hip flexor to r/o nerve adhesion. PT Plan: rectal exam to assess prostate size and if it is painful, nerve glides to rule out nerve adhesion at L1. May refer back to MD for diagnostic imaging. Frequency and Duration: The patient will be seen 2x/week x 4 weeks. Treatment Plan: Therapeutic Exercise Manual Therapies Home Exercise Program Patient Education Pelvic Floor Therapy Reviewed/ Agreed with Student Documentation: Therapist: Thank you once again for your referral.
--- NOTE | 2021-03-26 15:46 | MHC.PT.DC ---
[facility] [place] Office [place] Office [place] Office [address] Ana Laura Rodriguez [address] [phone] F: [phone] F: [phone] F: [phone] F: [phone] Physical Therapy Discharge Report Diagnosis: pelvic pain Date of Surgery: Date of Evaluation: 02/25/21 Date of Discharge: 03/26/21 Treatments to Date: 6 Cancellations to Date: No Shows to Date: Discharge Status: Recommend MD Follow-up Discharge Summary: I did an internal assessment today through the rectum to assess as the source of his current pain. I assessed his PFM tone, activation, and strength. The patient had poor muscle coordination and initially he had poor motor recruitment of his PFM. The coordination of his contraction improved with verbal cues. Most notable was he had no painful palpation of his pelvic floor, coccyx, OI, or prostate. The patient continues to demonstrate rounded kyphotic trunk posture. I did extensive education on diaphragmatic breathing, modulating pressure in the abdomen as well. His symptoms are improved with traction of his upper lumbar spine, and he has increased groin pain with manual therapy of his lumbar spine. He also has increased pain with hip flexor stretch. He has mentioned a Doctor has said he has an inguinal hernia. He would likely benefit at this point from diagnostic imaging to view this hernia, or diagnostic imaging to rule out a disc derangement in the upper lumbar spine which may be causing referred pain to the groin region. He will be discharged from skilled PT at this time due to not responding to conservative therapy. I recommend MD f/u for diagnostic imaging. Electronically signed by: Zahida Carrasco PT DPT Please sign and return to therapist. Thank you for your referral.
== END 2021-04-14 08:00 | disposition home or self-care (01) ==
LOC: HO.PT 09:00
PROVIDERS: PCP Nurse Practitioner Family; Visit Provider Urology
DX: R10.31 Right lower quadrant pain (principal)
CPT/HCPCS: 97012; 97110; 97112; 97140; 97162; 97530

== ENCOUNTER 2021-04-20 17:46 | Outpatient (REF) | payer OTHER, SELFPAY ==
--- NOTE | ~2021-04-20 | MR_ITS ---
EXAMINATION: MR LUMBAR SPINE WITHOUT CONTRAST CLINICAL INFORMATION: Low back pain and radiculopathy. COMPARISON: None TECHNIQUE: MRI of the lumbar spine was obtained using routine sequences without contrast. FINDINGS: VERTEBRAL BODIES AND PARASPINAL STRUCTURES: The marrow signal is mildly heterogeneous. There is a slight retrosubluxation at the L4-L5 level. There is a right-sided segmented transverse processes at the L1 level. No compression fracture is identified. No marrow or soft tissue edema is seen. The paraspinal soft tissues appear normal. The imaged bony pelvis appears normal. CONUS MEDULLARIS AND CAUDA EQUINA: Normal, terminating at the level of L2. No lower cord signal abnormality is seen. The cauda equina nerve roots are normal. SPINAL LEVELS: L1-L2 and L2-L3: No disc pathology, central canal stenosis, or foraminal narrowing. Mild right-sided facet arthropathy at the L2-L3 level. L3-L4: Minimal annular bulge and mild facet arthropathy without central canal stenosis or foraminal narrowing. L4-L5: Mild retrosubluxation and disc bulge with a left foraminal disc protrusion mildly compressing the exiting left L4 nerve root with moderate encroachment. Mild facet arthropathy without central canal stenosis. L5-S1: No disc abnormality, central canal stenosis, or foraminal narrowing. MR/MR lumbar spine wo con IMPRESSION: Mild retrosubluxation and disc bulge with a left foraminal disc protrusion at the L4-L5 level compressing the exiting left L4 nerve root.
== END 2021-04-20 17:47 | disposition home or self-care (01) ==
LOC: HO.MRI 17:46
PROVIDERS: PCP Nurse Practitioner Family; Visit Provider Nurse Practitioner Family
DX: M54.16 Radiculopathy, lumbar region (principal)
CPT/HCPCS: 72148

== ENCOUNTER → 2021-04-29 10:44 | Outpatient (BNVA) | payer OTHER, SELFPAY | PROVIDERS: PCP Nurse Practitioner Family; Visit Provider Urology | DX: R10.31 Right lower quadrant pain (principal); R10.32 Left lower quadrant pain | CPT/HCPCS: 99212 ==

== ENCOUNTER 2021-05-12 07:39 | Outpatient (REF) | payer OTHER, SELFPAY ==
--- NOTE | ~2021-05-12 | CT_ITS ---
EXAMINATION: CT ABDOMEN AND PELVIS WITH CONTRAST CLINICAL INFORMATION: Left lower quadrant pain COMPARISON: Previous CT of the abdomen and pelvis September 2018 TECHNIQUE: Multidetector volumetric images were obtained from the superior aspect of the liver through the pubic symphysis following administration 85 mL of Omnipaque 350 intravenous contrast. Sagittal and coronal reformatted images were obtained on the technologist's workstation. Oral contrast: Yes This CT examination was performed using dose optimization techniques as appropriate, variously including the following: *Automated exposure control *Adjustment of mA and/or kV according to patient size (this includes techniques or standardized protocols for targeted exams where dose is matched to indication/reason for exam; i.e. extremities or head) *Use of iterative reconstruction technique DLP: 505 mGy-cm FINDINGS: LUNG BASES: The visualized lung bases are unremarkable. LIVER, GALLBLADDER, AND BILIARY TREE: The liver is normal in size, shape, and attenuation. No focal hepatic lesion or biliary ductal dilatation is present. The gallbladder is unremarkable with no evidence of radiopaque gallstones, gallbladder wall thickening, or obvious pericholecystic inflammatory changes. PANCREAS: There is fatty infiltration of the pancreas. SPLEEN: Unremarkable. ADRENAL GLANDS: Unremarkable. KIDNEYS AND URETERS: The kidneys are normal in size, shape, and attenuation. No hydronephrosis, hydroureter, or calculi seen. No perinephric stranding. BLADDER: Unremarkable. GASTROINTESTINAL TRACT: There is a large amount of stool in the colon suggestive of constipation. The small and large bowel are otherwise unremarkable. The appendix is unremarkable. ABDOMINAL WALL: No significant hernia is appreciated. LYMPH NODES: Normal. VASCULAR: Unremarkable. PELVIC VISCERA: Unremarkable. OSSEOUS STRUCTURES: Unremarkable. CT/CT abdomen pelvis w con IMPRESSION: Fatty infiltration of the pancreas. Constipation. Fleischner guidelines were followed.
[2021-05-12 08:40] LABS: Alanine Aminotransferase 60 U/L (0-40); Alkaline Phosphatase 36 U/L (39-117); Anion Gap 11 (12-20); Aspartate Amino Transferase 30 U/L (5-37); Bilirubin Total 0.5 mg/dL (0.0-1.0); Blood Urea Nitrogen 9 mg/dL (9-16); Calcium 9.8 mg/dL (8.4-10.2); Carbon Dioxide 29 mmol/L (22-29); Chloride 104 mmol/L (96-108); Cholesterol 244 mg/dL; Estimated Glomerular Filt Rate > 60; Glucose Fasting 145 mg/dL (60-99); HDL Cholesterol 44 mg/dL; LDL Cholesterol Calculated 181 mg/dl; Potassium 4.1 mmol/L (3.3-5.1); Sodium 140 mmol/L (135-145); Total Protein 6.3 g/dL (6.5-8.0); Triglycerides 99 mg/dL
[2021-05-12 09:05] LABS: TSH reflex Free T4 3.85 uIU/mL (0.32-4.0)
[2021-05-12] MEDS: iohexoL 350 MG/ML 100 ML INFUS..BTL IV (10:21)
[2021-05-12] MEDS: Barium Sulfate Oral (Vanilla) 450 ML ORAL.SUSP 900 ML PO (10:21)
[2021-05-12 11:06] LABS: Appearance Urine CLEAR; Color Urine YELLOW; Glucose Urine UA NEG (NEG); Leukocyte Esterase Urine NEG (NEG); Nitrite Urine NEG (NEG); PH 5.5 (5.0-8.0); Specific Gravity - Urine >= 1.030 (1.005-1.025); Urine Blood NEG (NEG); Urine Ketones NEG (NEG); Urine Protein NEG (NEG-TRACE)
== END 2021-05-12 07:40 | disposition home or self-care (01) ==
LOC: HO.CT 07:39
PROVIDERS: PCP Nurse Practitioner Family; Visit Provider Nurse Practitioner Family
DX: R10.32 Left lower quadrant pain (principal)
CPT/HCPCS: 36415; 74177; 80053; 80061; 81003; 84443; Q9967

== ENCOUNTER 2021-09-04 12:16 | Outpatient (REF) | payer OTHER, SELFPAY ==
[2021-09-04 13:54] LABS: Appearance Urine CLEAR; Color Urine YELLOW; Glucose Urine UA NEG (NEG); Leukocyte Esterase Urine NEG (NEG); Nitrite Urine NEG (NEG); Specific Gravity - Urine 1.015 (1.005-1.025); Urine Blood NEG (NEG); Urine Ketones NEG (NEG); Urine Protein NEG (NEG-TRACE)
[2021-09-04 14:13] LABS: Alanine Aminotransferase 22 U/L (0-40); Albumin Level 4.3 g/dL (3.5-5.0); Alkaline Phosphatase 55 U/L (39-117); Anion Gap 13 (12-20); Aspartate Amino Transferase 13 U/L (5-37); Bilirubin Total 0.9 mg/dL (0.0-1.0); Blood Urea Nitrogen 14 mg/dL (9-16); Calcium 9.9 mg/dL (8.4-10.2); Carbon Dioxide 27 mmol/L (22-29); Chloride 102 mmol/L (96-108); Cholesterol 119 mg/dL; Estimated Glomerular Filt Rate > 60; Glucose Fasting 126 mg/dL (60-99); HDL Cholesterol 42 mg/dL; LDL Cholesterol Calculated 67 mg/dl; Potassium 4.2 mmol/L (3.3-5.1); Sodium 138 mmol/L (135-145); Total Protein 6.9 g/dL (6.5-8.0); Triglycerides 51 mg/dL
[2021-09-04 14:19] LABS: TSH reflex Free T4 1.48 uIU/mL (0.32-4.0)
== END 2021-09-04 12:17 | disposition home or self-care (01) ==
LOC: HO.HMGCLDS 12:16
PROVIDERS: Visit Provider Nurse Practitioner Family
DX: E78.5 Hyperlipidemia, unspecified (principal)
CPT/HCPCS: 36415; 80053; 80061; 81003; 84443

== ENCOUNTER → 2021-12-21 10:50 | Outpatient (REF) | payer OTHER, SELFPAY ==
--- NOTE | 2021-12-21 10:52 | HM_ITS ---
* Total monitoring time 2 days and 23 hours. * Underlying rhythm is sinus. Average rate 79/Min. Range 54 to 164/Min. * About 10% the time, rate greater than 100/Min- sinus tachycardia. * No atrial fibrillation or flutter or AV blocks or pauses. * Rare supraventricular ectopy with minimal burden. * Rare ventricular ectopy with minimal burden. * Shortness of breath, rapid/fast heartbeat, palpitations, skipping in patient symptoms associated with sinus tachycardia. MTDD
== END ==
LOC: HO.CARD 10:50
PROVIDERS: PCP Nurse Practitioner Family; Visit Provider Nurse Practitioner Family
DX: R00.0 Tachycardia, unspecified (principal); R00.2 Palpitations
CPT/HCPCS: 93242

== ENCOUNTER 2022-05-12 18:19 | Outpatient (REF) | payer OTHER, SELFPAY ==
[2022-05-12 19:40] LABS: Influenza A PCR NEGATIVE (Negative); Influenza B PCR NEGATIVE (Negative); Resp Syncy Virus RNA Qual PCR NEGATIVE (Negative); SARS COV2 PCR INHOUSE POSITIVE (Negative)
== END 2022-05-12 18:20 | disposition home or self-care (01) ==
LOC: HO.LNP 18:19
PROVIDERS: Visit Provider Nurse Practitioner Family
DX: Z20.822 Contact with and (suspected) exposure to COVID-19 (principal); R09.89 Other specified symptoms and signs involving the circulatory and respiratory systems
CPT/HCPCS: 0241U

== ENCOUNTER 2022-06-23 14:20 | Outpatient (REF) | payer OTHER, SELFPAY ==
--- NOTE | ~2022-06-23 | XR_ITS ---
EXAMINATION: XR shoulder LT min 2V CLINICAL INFORMATION: Reason for Exam S43.402A - Unspecified sprain of left shoulder joint, initial encounter COMPARISON: None TECHNIQUE: Four views of the shoulder. FINDINGS: No acute fracture. Glenohumeral and coracoclavicular alignment is maintained. Mild superior subluxation of the clavicle with respect to the acromion, which may reflect a degree of acromioclavicular joint injury. Soft tissues are unremarkable. XR/XR shoulder LT min 2V IMPRESSION: * Mild superior subluxation of the clavicle with respect to the acromion, which may reflect a degree of acromioclavicular joint injury.
== END 2022-06-23 14:21 | disposition home or self-care (01) ==
LOC: HO.HMGCX 14:20
PROVIDERS: PCP Nurse Practitioner Family; Visit Provider Internal Medicine
DX: S43.402A Unspecified sprain of left shoulder joint, initial encounter (principal)
CPT/HCPCS: 73030

== ENCOUNTER 2022-07-22 10:00 | Outpatient (RCR) | payer OTHER, SELFPAY ==
--- NOTE | 2022-06-30 14:00 | MHC.PT.EP ---
[facility] [place] Office [place] Office [place] Office [address] Rodriguez [address] [phone] F: [phone] F: [phone] F: [phone] F: [phone] Physical Therapy Plan of Care Date of Evaluation: Date of Surgery: N/A Diagnosis: sprain of left shoulder joint (RC) Assessment: pt is a 47 y/o male presenting to physical therapy w/ referring diagnosis of S43.402A unspecified sprain of left shoulder joint, initial encounter. Impairments include pain, decreased range of motion, decreased strength, impaired functional mobility, impaired postural awareness, and altered ambulation mechanics. pt is a good candidate for skilled PT due to age, potential remediation of impairments, typical disease/condition progression and prognosis, comorbidities, and motivation. pt would benefit from skilled PT intervention to provide a tailored strengthening and stretching exercise program, functional training, gait training, postural re-training, neuromuscular re-education, modalities as needed for pain, equipment safety demonstration. Frequency and Duration: The patient will be seen 2x/wk for 4 wks Short Term Goals: pt will be I w/ HEP to promote self-management of condition. pt will improve L shoulder flexion and abduction by 10 degrees to promote ease in accessing objects on higher shelves. pt will improve L shoulder functional ER to at least C3 to promote ease in upper body ADLs. [facility] Goals: pt will report a statistically significant improvement in self-reported outcome measure, SPADI, to promote return to PLOF. pt will improve R shoulder and elbow flexion to 5/5 to promote ease in lifting including grocery bags. pt will demonstrate proper lifting mechanics of 30# from floor to chest height x5 reps to promote pain-limited return to work duties. Treatment Plan: Modalities to reduce pain, spasms and effusion. Manual therapy to restore motion and function. Therapeutic exercise to improve strength and flexibility. Neuromuscular re-education for posture and balance. Therapeutic activities to return to functional activities of daily living. Electronically signed by: Mary Jo Burk PT, DPT Please sign and return to therapist. Thank you for your referral.
--- NOTE | 2022-08-02 17:52 | MHC.PT.DC ---
[facility] [place] Office [place] Office [place] Office [address] Ana Laura Rodriguez 140 [facility] [phone] F: [phone] F: [phone] F: [phone] F: [phone] Physical Therapy Discharge Report Diagnosis: sprain of left shoulder joint (RC) Date of Surgery: N/A Date of Evaluation: 06/30/22 Date of Discharge: 08/02/22 Treatments to Date: 5 Cancellations to Date: 2 No Shows to Date: 3 Discharge Status: Visit Non-compliance Discharge Summary: The patient has no showed his last 3 scheduled visits. Per [facility] policy, he is being discharged for visit non-compliance. 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 Electronically signed by: Mary Jo Burk PT, DPT Please sign and return to therapist. Thank you for your referral.
== END 2022-08-02 17:52 | disposition home or self-care (01) ==
LOC: HO.PT 10:00
PROVIDERS: PCP Nurse Practitioner Family; Visit Provider Internal Medicine
DX: S43.402D Unspecified sprain of left shoulder joint, subsequent encounter (principal)
CPT/HCPCS: 97014; 97110; 97112; 97162; 97530

== ENCOUNTER 2022-10-19 11:11 | Outpatient (REF) | payer OTHER, SELFPAY ==
[2022-10-19 13:56] LABS: MANUAL DIFF FLAG NO
[2022-10-19 14:08] LABS: Basophils Percent Auto 0.6 % (0-2); Eosinophils Absolute Auto 0.1 X10*3/uL (0.0-0.4); Eosinophils Percent Auto 2.4 % (0-4); Hematocrit 37.5 % (42.0-52.0); Hemoglobin 12.6 g/dl (14.0-18.0); Imm Gran Abs Auto 0.01 X10*3/uL (0.00-0.03); Imm Gran Pct Auto 0.2 % (0.0-0.4); Lymphocytes Absolute Auto 1.9 X10*3/uL (1.2-4.9); Lymphocytes Percent Auto 37.9 % (20-40); Mean Corpuscular HGB Conc 33.6 g/dl (31.0-36.0); Mean Corpuscular Hemoglobin 29.7 pg (27.0-33.0); Mean Corpuscular Volume 88.4 fL (80.0-98.0); Mean Platelet Volume 10.2 fL (9.4-12.4); Monocytes Absolute Auto 0.3 X10*3/uL (0.1-1.2); Monocytes Percent Auto 5.4 % (2-11); Neutrophils Absolute Auto 2.7 x10*3/uL (2.0-8.3); Neutrophils Percent Auto 53.5 % (45-73); Platelet Count 217 X10*3/uL (160-400); Red Blood Count 4.24 X10*6/uL (4.60-5.80)
[2022-10-19 14:29] LABS: Alanine Aminotransferase 19 U/L (0-40); Albumin Level 4.4 g/dL (3.5-5.0); Alkaline Phosphatase 44 U/L (39-117); Anion Gap 14 (12-20); Aspartate Amino Transferase 15 U/L (5-37); Bilirubin Total 0.9 mg/dL (0.0-1.0); Blood Urea Nitrogen 7 mg/dL (9-16); Calcium 9.6 mg/dL (8.4-10.2); Carbon Dioxide 27 mmol/L (22-29); Chloride 103 mmol/L (96-108); Estimated Glomerular Filt Rate > 60; Glucose Random 125 mg/dL (60-115); Potassium 3.9 mmol/L (3.3-5.1); Sodium 140 mmol/L (135-145); Total Protein 6.7 g/dL (6.5-8.0)
[2022-10-19 14:37] LABS: TSH reflex Free T4 2.32 uIU/mL (0.32-4.0)
== END 2022-10-19 11:12 | disposition home or self-care (01) ==
LOC: HO.HMGCLDS 11:11
PROVIDERS: PCP Nurse Practitioner Family; Visit Provider Nurse Practitioner Family
DX: R00.0 Tachycardia, unspecified (principal); R00.2 Palpitations
CPT/HCPCS: 36415; 80053; 84443; 85025

== ENCOUNTER 2022-12-02 08:09 | Outpatient (REF) | payer OTHER, SELFPAY ==
--- NOTE | 2022-12-02 08:12 | EMG_ITS ---
Left median and ulnar motor and sensory studies were performed. Left radial sensory study was performed. Left median and lateral antecubital sensory studies were performed and EMG was performed. IMPRESSION: 1. Mild left ulnar neuropathy across cubital tunnel. 2. Chronic left lower cervical radiculopathy. MD SHY Simms/CARYN / [id number]
== END 2022-12-02 08:10 | disposition home or self-care (01) ==
LOC: HO.NEURO 08:09
PROVIDERS: PCP Nurse Practitioner Family; Visit Provider Nurse Practitioner Family
DX: M79.602 Pain in left arm (principal)
CPT/HCPCS: 95886; 95910

== ENCOUNTER 2022-12-15 14:05 | Emergency (ER) | payer OTHER, SELFPAY ==
--- NOTE | ~2022-12-15 | US_ITS ---
EXAMINATION: US VENOUS WITH DOPPLER UPPER EXTREMITY, LEFT CLINICAL INFORMATION: Left upper extremity swelling. COMPARISON: None available. TECHNIQUE: Ultrasound of the upper extremity is performed using compression sonography and color and pulse Doppler flow with assessment of augmentation of flow. There is also imaging and Doppler assessment of the jugular and subclavian veins. Spectral analysis with color-flow imaging is performed. FINDINGS: Respiratory variation, normal compression, and augmented flow are noted throughout the upper extremity including the axillary, brachial, cubital, and radial and ulnar veins. There is normal flow in the internal jugular and subclavian veins. There is no visible deep or superficial thrombophlebitis. The subcutaneous soft tissues are unremarkable. Incidental elongated reniform lymph node in the left upper extremity measuring up to 3.2 cm in long axis. If the patient's symptoms progress, a followup ultrasound in 5 -7 days might be of value to exclude proximal propagation from a nonvisualized distal arm vein. US/US venous duplex UE LT IMPRESSION: 1. No evidence for deep venous thrombosis in the visualized veins of the left upper extremity. 2. Enlarged left upper extremity lymph node is nonspecific, but demonstrates benign features and may be reactive. Correlate with physical exam. If these findings persist or enlarge, short-term repeat targeted soft tissue ultrasound can be performed as clinically indicated to assess for change.
[2022-12-15 14:26] VITALS: BP 141/84; PULSE 92; RESP 18; TEMP 36.6; O2SAT 93; BMI 30.7
--- NOTE | 2022-12-15 14:27 | ED.EXTPRO ---
HPI - Extremity Problem General Chief complaint: Extremity Injury, Upper Stated complaint: numbness L hand/ possible blood clot Related Data Home Medications Medication Instructions Recorded Confirmed buprenorphine 8 mg-naloxone 2 mg 10 mg sublingual DAILY 11/30/21 05/12/22 sublingual film Previous Rx's Medication Instructions Recorded albuterol sulfate 90 mcg/actuation 2 puff inhalation Q4-6H PRN 05/12/22 aerosol inhaler shortness of breath or wheezing #6.7 grams meloxicam 15 mg tablet 15 mg PO DAILY #14 tabs 06/23/22 atorvastatin 80 mg tablet 80 mg PO BEDTIME #90 tabs 08/20/22 citalopram 10 mg tablet 15 mg PO DAILY #135 tabs 08/20/22 metoprolol succinate 25 mg 12.5 mg PO DAILY #45 tabs 08/20/22 tablet,extended release 24 hr losartan 25 mg tablet 25 mg PO DAILY #90 tabs 10/07/22 quetiapine 300 mg tablet 300 mg PO BEDTIME #30 tabs 10/07/22 tizanidine 4 mg tablet 4 mg PO BEDTIME PRN muscle 10/27/22 spasticity 30 days #30 tabs gabapentin 600 mg tablet 600 mg PO BID #60 tabs 12/07/22 Allergies Allergy/AdvReac Type Severity Reaction Status Date / Time No Known Allergies Allergy Verified 12/15/22 14:26 [No Known Allergies*] [facility] Past Medical History Medical History Back pain Bipolar 1 disorder History of gynecomastia (~02/13/20) Hypertension Opioid abuse TMJ (dislocation of temporomandibular joint) Surgical History History of breast lump/mass excision History of vasectomy Family History Family History Mother History of breast cancer Other Mental health disorder Substance use disorder Social History Social History Housing: Apartment Alcohol intake: never Patient Tobacco Use Status: Former Tobacco user Years Smoked: quit 6 years ago e-Cigarette/Vaping Use: Currently Using Second Hand Smoke Exposure: Yes Substance Use Type: Opiates Advance Directives: Yes Advance Directives on File: Yes Advance Directives Date on File: 05/28/20 service: No Current occupational status: unemployed Cognitive needs: No Hearing needs: No Vision needs: No Physical Exam Vital Signs: Vital Signs: Last Vital Signs Temp 98 F 12/15/22 14:26 Pulse 92 12/15/22 14:26 Resp 18 12/15/22 14:26 BP 141/84 H 12/15/22 14:26 Pulse Ox 93 12/15/22 14:26 BMI result Body Mass Index 30.7 Course Course Course Narrative: RME - 47 yo right hand dominant male who presents to the ER for evaluation of LUE numbness and swelling that started this morning when he woke up today. His PCP sent him in to the ER to r/o blood clot. Mom has hx PE. He does have chronic neck pain and ulnar nerve issues. Plan: r/o DVT of LUE Reevaluation(s) Reevaluation #1: patient eloped from the ER prior to results Discharge Plan Discharge Clinical Impression: Arm pain, left Patient Disposition: Elopement Prescriptions: No Action citalopram 10 mg tablet 15 mg PO DAILY Qty: 135 1RF Rx Instructions: Schedule next PCP appt for more refills metoprolol succinate 25 mg tablet extended release 24 hr 12.5 mg PO DAILY Qty: 45 1RF Rx Instructions: Schedule next PCP appt for more refills atorvastatin 80 mg tablet 80 mg PO BEDTIME Qty: 90 1RF Rx Instructions: Schedule next PCP appt for more refills losartan 25 mg tablet 25 mg PO DAILY Qty: 90 1RF quetiapine 300 mg tablet 300 mg PO BEDTIME Qty: 30 2RF tizanidine 4 mg tablet 4 mg PO BEDTIME PRN (Reason: muscle spasticity) 30 Days Qty: 30 2RF gabapentin 600 mg tablet 600 mg PO BID Qty: 60 2RF buprenorphine-naloxone 8-2 mg film 10 mg sublingual DAILY meloxicam 15 mg tablet 15 mg PO DAILY Qty: 14 0RF albuterol sulfate 90 mcg/actuation HFA aerosol inhaler 2 puff inhalation Q4-6H PRN (Reason: shortness of breath or wheezing) Qty: 6.7 0RF Rx Instructions: May dispense medication equivalent accepted by his insurance Interventions: ED Discharge Assessment Last Done: 12/15/22 18:23 Discharge Date/Time: 12/15/22 18:23
== END 2022-12-15 18:23 | disposition left against medical advice (07) ==
LOC: HO.ED 18:09
PROVIDERS: Emergency Provider Emergency Medicine; PCP Nurse Practitioner Family
DX: M79.602 Pain in left arm (principal); R20.0 Anesthesia of skin; Z87.891 Personal history of nicotine dependence
CPT/HCPCS: 93971; 99282; 99284

== ENCOUNTER 2023-01-19 10:06 | Outpatient (AMB) | payer OTHER, SELFPAY ==
[2023-01-19 11:04] VITALS: BMI 30.7
--- NOTE | 2023-01-19 11:04 | A.OFFVIS_ITS ---
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 States he is having ulnar nerve pain, swelling in left arm for the last 6 months. States he is having sharp radiating pain from his left side of his neck down his arm. Patient has tried P.T for his left shoulder thinking it was his shoulder but D/C due to increase pain. Diffi culty sleeping due to pain and numbness in hand. EMG done. 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 His chief complaint is of pain about the medial aspect of his left elbow for at least the last 6 months.. He feels that this extends distally dorsally around his forearm to the ulnar aspect of his left hand. He also complains of numbness and tingling in the ulnar aspect of his hand. He feels like he has constant numbness in the small finger but sometimes it can become intermittent. . He reports that he had significant swelling in his left forearm last week.. He had an ultrasound of his arm which was negative for DVT, this resolved on its own He says his pain is unrelenting and he has started to feel depressed because of this. He denies any known injury. He says he has felt more tender since his NCS was completed. 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 COUNT INCLUDES THE [facility] Medical History Back pain Bipolar 1 disorder History of gynecomastia (~02/13/20) Hypertension Opioid abuse TMJ (dislocation of temporomandibular joint) Surgical History History of breast lump/mass excision History of vasectomy Family History Mother History of breast cancer Other Mental health disorder Substance use disorder Social History (Updated 01/19/23 @ 11:09 by Neva Frost [facility]) Housing: Apartment Alcohol intake: never Patient Tobacco Use Status: Former Tobacco user Years Smoked: quit 6 years ago e-Cigarette/Vaping Use: Currently Using Second Hand Smoke Exposure: Yes Substance Use Type: Opiates Advance Directives Date on File: 05/28/20 service: No Current occupational status: unemployed 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 Cognitive needs: No Hearing needs: No Vision needs: No Review of Systems Const All systems reviewed & are unremarkable except as noted in HPI and below Physical Exam Vital Signs: BMI result Body Mass Index 30.7 Const General: cooperative, healthy appearing and no acute distress Orientation/consciousness: patient oriented x3 HEENT Head: Yes normocephalic and Yes atraumatic Eyes EOM: EOMs intact bilaterally Resp Effort & Inspection: normal respiratory effort and able to speak in complete sentences Cardio Jugular venous distension: no JVD Skin General skin exam: turgor normal Rashes: no rashes Neuro General: patient oriented x3 Extrem Other: Evaluation of Left Upper Extremity: The patient is alert, oriented, and in no acute distress Neuro: Median, Ulnar, Radial nerves motor and sensory intact and sensation is normal to the tips of all digits No thenar or intrinsic wasting Good APB muscle belly firing and good finger cross Good finger ABduction & ADduction Vascular: Cap refill brisk ROM: He can make a fist and extend all his digits No locking or catching Good active elbow ROM Tenderness to even light touch of the skin over the medial aspect of his elbow Positive Tinel's sign with exquisite point tenderness over the ulnar nerve with testing Not particularly tender over the medial epicondyle or in the flexor origin. Can flex and extend and pronate supinate at the elbow. Skin: No lacerations or abrasions. General: No Ecchymosis. No Erythema or evidence of infection. Nerve Conduction Study: IMPRESSION:? 1. Mild left ulnar neuropathy across cubital tunnel. 2. Chronic left lower cervical radiculopathy. Angel Luis Branham MD 12/02/2022 Psych Appearance: grossly normal Affect: normal affect Attitude: cooperative Assessment & Plan Assessment & Plan (1) Cubital tunnel syndrome on left: Code(s): G56.22 - Lesion of ulnar nerve, left upper limb (2) Left cervical radiculopathy: Code(s): M54.12 - Radiculopathy, cervical region Plan Assessment & Plan: 1. Left Cubital tunnel syndrome, mild With dense numbness I educated him about this condition I discussed operative and non-operative treatment options The patient would like to proceed with surgery Left medial sided elbow pain X6 months I explained that surgery is not likely to improve his feelings of pain and he will need to be seen by Pain management for this The risks and benefits of operative treatment were discussed with the patient and the patient wishes to proceed with surgery. These risks include, but are not limited to risk of damage to blood vessels, nerves, tendons, infection, recurrence, incomplete relief of preoperative symptoms, persistent pain, possible need for further surgery and the risks associated with regional blocks and anesthesia. The plan is to take the patient to the operating room sometime in the next few weeks for the following procedures: 1. Left Cubital tunnel release, under general All of the preoperative paperwork including the consent was filled out today. All the patient's questions were answered. The patient understands that they will be contacted by our neurosurgery research director soon to schedule this procedure He denies Diabetes, blood thinners, asthma, heart, lung, kidney issues 2. Left forearm & medial elbow pain & hypersensitivity Etiology unclear Also with a history of left forearm swelling last week that was worked up for a DVT. No DVT was found. This is somewhat concerning. It is not clear why he has such pain and tenderness about the medial aspect of his elbow. He denies any snapping sensations. I did explain that, as cubital tunnel syndrome usually is not accompanied by such discomfort, it is very possible that this surgery will not improve his painful symptoms. I explained that the surgery is mostly to alleviate the numbness and tingling in the ulnar aspect of his left hand, and to help prevent development of significant weakness and clumsiness. He expressed understanding. I recommend he touch the skin along his arm to work on desensitization 3. Chronic left lower cervical radiculopathy Seen on NCS I referred him to Pain Management for assessment Scribed for Amelie Diaz MD by Jay Tinsley, medical authorization specialist, on 01/19/23 at 12:00 PM, EST. Coding Level of Care Code New Pt Level 4 (20913) Diagnoses Cubital tunnel syndrome on left G56.22 Left cervical radiculopathy M54.12
== END 2023-01-19 11:54 | disposition home or self-care (01) ==
PROVIDERS: PCP Nurse Practitioner Family; Visit Provider Orthopaedic Surgery
DX: G56.22 Lesion of ulnar nerve, left upper limb (principal)
CPT/HCPCS: 99204

== ENCOUNTER → 2023-01-19 10:06 | Outpatient (BNVA) | payer OTHER, SELFPAY | PROVIDERS: PCP Nurse Practitioner Family; Visit Provider Orthopaedic Surgery | DX: G56.22 Lesion of ulnar nerve, left upper limb (principal); M54.12 Radiculopathy, cervical region | CPT/HCPCS: 99202 ==

== ENCOUNTER 2023-02-02 13:58 | Outpatient (AMB) | payer OTHER, SELFPAY ==
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
[2023-02-02 14:27] VITALS: BP 134/82; PULSE 84; RESP 16; O2SAT 99; BMI 30.8
== END 2023-02-02 15:03 | disposition home or self-care (01) ==
PROVIDERS: PCP Nurse Practitioner Family; Visit Provider Anesthesiology
DX: G56.22 Lesion of ulnar nerve, left upper limb (principal); G56.20 Lesion of ulnar nerve, unspecified upper limb; M79.602 Pain in left arm; S43.402A Unspecified sprain of left shoulder joint, initial encounter
CPT/HCPCS: 99214

== ENCOUNTER → 2023-02-02 13:58 | Outpatient (BNVA) | payer OTHER, SELFPAY | PROVIDERS: PCP Nurse Practitioner Family; Visit Provider Anesthesiology | DX: M54.12 Radiculopathy, cervical region (principal); M79.602 Pain in left arm; G56.22 Lesion of ulnar nerve, left upper limb; G56.20 Lesion of ulnar nerve, unspecified upper limb; S43.402D Unspecified sprain of left shoulder joint, subsequent encounter | CPT/HCPCS: 99212 ==

== ENCOUNTER 2023-02-03 06:06 | Day surgery (SDC) | payer OTHER, SELFPAY ==
[2023-01-31 16:15] VITALS: BMI 30.7
[2023-02-01 09:37] VITALS: BMI 30.4
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
[2023-02-03 06:16] VITALS: BP 116/80; PULSE 87; RESP 16; TEMP 36.1; O2SAT 98
[2023-02-03] MEDS: Lactated Ringers 1,000 ML 100 ML IVCONT (07:02)
[2023-02-03 09:15] VITALS: BP 133/78; PULSE 86; RESP 17; TEMP 36.6; O2SAT 98
[2023-02-03 09:20] VITALS: BP 127/76; PULSE 69; RESP 17; O2SAT 98
[2023-02-03 09:25] VITALS: BP 140/78; PULSE 78; RESP 17; O2SAT 95
[2023-02-03 09:29] VITALS: BP 147/88; PULSE 70; RESP 15; O2SAT 96
--- NOTE | 2023-02-03 09:43 | MHC.SHP ---
Pre-Procedural Eval Section A Date of Service: 02/03/23 The patient is an INPATIENT: No Changes since office visit: No Cold of Flu in the past 2 weeks, No New Medical Problems, No Changes in Medication and No Patient answered all questions The History & Physical has been completed within 30 days and I have reviewed it.: Yes Section B Chief Complaint: Lesion of ulnar nerve, left upper limb Allergies: Allergies Allergy/AdvReac Type Severity Reaction Status Date / Time No Known Allergies Allergy Verified 02/02/23 14:29 [No Known Allergies*] Plan I have reviewed the history and physical and performed a pertinent physical examination on my patient. No changes have occurred unless specified. Time Spent With Patient Time: Total time managing care of this patient today ____ minutes.
[2023-02-03 09:44] VITALS: BP 151/88; PULSE 87; RESP 16; TEMP 36.6; O2SAT 100
--- NOTE | 2023-02-03 09:44 | P.OP_ITS ---
Operative Note Operative Note Date of Service: 02/03/23 Narrative: Operative Note Narrative: Preop diagnosis: 1. left Cubital tunnel syndrome Postop diagnosis: Same Procedure: 1. left Cubital Tunnel Release Surgeon: Amelie Diaz MD Anesthesia: General Anesthesia Findings: Thickening and fibrosis about the ulnar nerve at the cubital tunnel Implants: none Tourniquet time: 29 minutes EBL: 5.0 ml Specimen: none Drains: None Complications: None Disposition: Brought to the recovery room in stable condition Plan: Follow-up in 10-14 days for wound check, and suture removal Indications: The patient is 47 years old with left cubital tunnel syndrome . The risks and benefits of operative treatment, including but not limited to risk of damage to blood vessels, nerves, tendons, infection, recurrence, persistent pain or numbness, incomplete resolution of preoperative symptoms, or need for further surgery were discussed with the patient and they wished to proceed with surgery. Procedure: Once consent was obtained patient was brought back to the operating suite and placed in the operating table in a supine position. Perioperative antibiotics and anesthesia was administered by the anesthesia team. The limb was prepped and draped in a standard surgical fashion, and a sterile tourniquet applied to the proximal aspect of the left upper extremity. The limb was elevated exsanguinated with Esmarch bandage and the tourniquet inflated to 250 mm of mercury for a total tourniquet time of 29 minutes. A 6 cm gently curved but longitudinally oriented incision was made centered over the cubital tunnel of the left upper extremity. Incision was made through the skin to the subcutaneous tissues using a # 15 Blade. I then dissected down to the level of the medial epicondyle and the cubital tunnel using tenotomy scis sors. Care was taken to protect the lateral antebrachial cutaneous nerve. The ulnar nerve was identified just posterior to the medial intermuscular septum. The ulnar nerve was released in a proximal to distal direction using tenotomy in iris scissors while directly visualizing and protecting the ulnar nerve. Thickening and fibrosis was appreciated about the ulnar nerve as it passed through the cubital tunnel. The ulnar nerve was assessed as I passed the elbow through full flexion and extension and was found to remain stable within its groove. At this point the tourniquet was deflated and hemostasis obtained with a brief period of local pressure and bipolar electrocautery. The wound was copiously irrigated with normal saline. The subcutaneous layer was closed with 4-0 Vicryl suture, and the skin edges were reapproximated with 5-0 nylon suture. The wound was infiltrated with some 0.25% plain Marcaine for postop pain control and sterile dressings and a posterior splint was applied. The patient appears to have tolerated the procedure well and with no complications. All digits were well vascularized conclusion of the case.
== END 2023-02-03 10:41 | disposition home or self-care (01) ==
PROVIDERS: PCP Nurse Practitioner Family; Visit Provider Orthopaedic Surgery
PROC: (CPT 64718; principal; 2023-02-03 07:30)
DX: G56.22 Lesion of ulnar nerve, left upper limb (principal); R20.0 Anesthesia of skin; M54.12 Radiculopathy, cervical region; R20.2 Paresthesia of skin; I10 Essential (primary) hypertension; M26.609 Unspecified temporomandibular joint disorder, unspecified side; F31.9 Bipolar disorder, unspecified; F11.10 Opioid abuse, uncomplicated; Z86.16 Personal history of COVID-19; Z87.891 Personal history of nicotine dependence
CPT/HCPCS: 64718; J0131; J0690; J1100; J2371; J2405; J3010

== ENCOUNTER → 2023-02-03 06:06 | Outpatient (BNV) | payer OTHER, SELFPAY | PROVIDERS: PCP Nurse Practitioner Family; Visit Provider Orthopaedic Surgery | DX: G56.22 Lesion of ulnar nerve, left upper limb (principal) | CPT/HCPCS: 64718 ==

== ENCOUNTER 2023-02-15 14:25 | Outpatient (AMB) | payer OTHER, SELFPAY ==
--- NOTE | 2023-02-15 14:00 | A.OFFVIS_ITS ---
Intake Intake Visit Reasons: PO LT Cub.Rony.Release vs.transposition 02/03/23AR Intake Note: This is a 47 year old male who presents for a post op left cubital tunnel release vs. transposition done on 02/03/23 with AR. The patient reports no pain at this time. Allergies No Known Allergies [No Known Allergies*] Allergy (Verified 02/15/23 15:28) Medication List - Last Reconciled 02/15/23 by Jen Goodson RN albuterol sulfate 90 mcg/actuation 2 puffs inhalation Q4-6H PRN atorvastatin 80 mg PO BEDTIME buprenorphine-naloxone 8-2 mg 10 mg sublingual DAILY duloxetine (Cymbalta) 20 mg PO BEDTIME gabapentin 600 mg PO BID ibuprofen 600 mg PO Q6-8H PRN losartan 25 mg PO DAILY metoprolol succinate ER 12.5 mg (1/2 x 25 mg) PO DAILY oxycodone-acetaminophen 5-325 mg 1 tab PO Q6H PRN quetiapine 300 mg PO BEDTIME tizanidine 4 mg PO BEDTIME PRN 30 days HPI PO LT Cub.Rony.Release vs.transposition 02/03/23AR HPI Details Genaro is a 47 year old right hand dominant man who presents S/P left cubital tunnel release, DOS: 02/03/23 He says his sensation is normal and he is very happy with the results of his surgery He says all his forearm pain has resolved following his surgery and he is very happy about this. His forearm swelling has resolved He was referred to Pain Management for his cervical radiculopathy. 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 [facility] Medical History Full dentures Numbness and tingling in left hand Personal history of COVID-19 Depression Anxiety TMJ (dislocation of temporomandibular joint) Opioid abuse Back pain Hypertension Bipolar 1 disorder History of gynecomastia (~02/13/20) Surgical History Hx of hand surgery History of breast lump/mass excision History of vasectomy Family History Mother History of breast cancer Other Mental health disorder Substance use disorder Social History Housing: Apartment Are you a primary resident care manager to a significant other at home: No Do you presently have visiting nurse or other home services: No Alcohol intake: never Patient Tobacco Use Status: Former Tobacco user Quit Date: 2015 Tobacco use type: Cigarette Years Smoked: quit 6 years ago e-Cigarette/Vaping Use: Currently Using Second Hand Smoke Exposure: Yes Substance Use Type: Opiates Advance Directives Date on File: 05/28/20 service: No Current occupational status: unemployed 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 Sutures removed and Steri-Strips applied He can make a fist and extend all his digits His sensation is normal now to all digits Good active elbow ROM without pain No complaint of tenderness over the medial aspect of his forearm or elbow. Nerve Conduction Study: IMPRESSION:? 1. Mild left ulnar neuropathy across cubital tunnel. 2. Chronic left lower cervical radiculopathy. Angel Luis Branham MD 12/02/2022 Psych Appearance: grossly normal Affect: normal affect Attitude: cooperative Assessment & Plan Assessment & Plan (1) Cubital tunnel syndrome on left: Code(s): G56.22 - Lesion of ulnar nerve, left upper limb (2) Left cervical radiculopathy: Code(s): M54.12 - Radiculopathy, cervical region Plan Assessment & Plan: 1. Left Cubital tunnel syndrome, S/P release DOS: 02/03/23 Pre-operatively with dense numbness Now with normal sensation The patient appears to be doing well post-operatively I educated him about the post-operative course I explained the signs and symptoms of infection, if the patient develops any new or worsening erythema, drainage, pain, or warmth they should contact the clinic or attend the ED. I discussed activity modifications, he is to lift nothing heavier than a cellphone for the next two weeks He will perform gentle ROM exercises at home He should avoid any underwater activities for the next 5 days He should gently massage about the incision site to reduce the risk of hypersensitivity He will follow up in prn 2. Left forearm & medial elbow pain & hypersensitivity Etiology unclear Also with a history of left forearm swelling last week that was worked up for a DVT. No DVT was found. This pain has resolved following his cubital tunnel release, and he is very happy about this. 3. Chronic left lower cervical radiculopathy Seen on [facility] Pain management referral sent on 01/19/2023 for their evaluation Scribed for Amelie Diaz MD by Jay Tinsley, site medical director, on 02/15/23 at 4:15 PM, EST. Coding Level of Care Code Global (71465) Diagnoses Cubital tunnel syndrome on left G56.22 Left cervical radiculopathy M54.12
== END 2023-02-15 16:22 | disposition home or self-care (01) ==
PROVIDERS: PCP Nurse Practitioner Family; Visit Provider Orthopaedic Surgery
DX: G56.22 Lesion of ulnar nerve, left upper limb (principal); M54.12 Radiculopathy, cervical region
CPT/HCPCS: 99024

== ENCOUNTER → 2023-02-15 14:25 | Outpatient (BNVA) | payer OTHER, SELFPAY | PROVIDERS: PCP Nurse Practitioner Family; Visit Provider Orthopaedic Surgery ==

== ENCOUNTER 2023-02-25 14:03 | Outpatient (AMB) | payer OTHER, SELFPAY ==
--- NOTE | 2023-02-25 15:23 | MHC.OFFWIV ---
Intake Vital Signs 02/25/23 15:24 Height 5 ft 11 in Weight 223 lb BMI 31.1 BP 118/74 Blood Pressure Location Rt brachial Position Sitting Pulse 88 Pulse Source Pulse Oximeter Pulse Oximetry (%) 96 Oxygen Delivery Method Room Air Intake Visit Reasons: EST/pain in left side Intake Note: Patient here for lower left sided back pain, pt states he is in a lot of pain when he goes to walk and put his foot down. pt states it started today. Patient Tobacco Use Status: Former Tobacco user Quit Date: 2015 Allergies No Known Allergies [No Known Allergies*] Allergy (Verified 02/25/23 15:26) Do you need a note to return to daycare/school/sports/work: No HPI HPI Comments History of Present Illness Details This is a 47-year-old male who presents to the office today for sick visit. Patient complaining of pain in his left side. patient seems to be a poor historian as his story seems to change drastically. He told the MA as well as his at bedside that the pain started in his left low back and radiated around into his abdomen. However, upon further evaluation and questioning, patient states he has no back pain and his pain is located in his left lower abdomen. He states the pain is severe to the point where he is unable to walk or even sit on his left buttock. He denies any fever/ chills or nausea/ vomiting/ diarrhea. He denies any numbness /weakness/ paresthesias radiating into his lower extremities. He denies any dysuria/hematuria, urinary frequency/urgency, or urine/bowel retention or incontinence. [facility] Medical History Full dentures Numbness and tingling in left hand Personal history of COVID-19 Depression Anxiety TMJ (dislocation of temporomandibular joint) Opioid abuse Back pain Hypertension Bipolar 1 disorder History of gynecomastia (~02/13/20) Surgical History Hx of hand surgery History of breast lump/mass excision History of vasectomy Family History Mother History of breast cancer Other Mental health disorder Substance use disorder Social History Housing: Apartment Are you a primary care services manager to a significant other at home: No Do you presently have visiting nurse or other home services: No Alcohol intake: never Patient Tobacco Use Status: Former Tobacco user Quit Date: 2015 Tobacco use type: Cigarette Years Smoked: quit 6 years ago e-Cigarette/Vaping Use: Currently Using Second Hand Smoke Exposure: Yes Substance Use Type: Opiates Advance Directives Date on File: 05/28/20 service: No Current occupational status: unemployed 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 Cognitive needs: No Hearing needs: No Vision needs: No Review of Systems Const All systems reviewed & are unremarkable except as noted in HPI and below Reports no additional complaints Eyes Reports no additional complaints ENT Reports no additional complaints Card Reports no additional complaints Resp Reports no additional complaints GI Reports no additional complaints Reports no additional complaints Musc Reports no additional complaints Skin/Breast Reports system reviewed and no additional complaints, except as documented Neuro Reports no additional complaints Psych Reports no additional complaints Endo Reports no additional complaints Sánchez/Lymph Reports no additional complaints Aller/Immun Reports no additional complaints Physical Exam Vital Signs: Last Vital Signs Pulse 88 02/25/23 15:24 BP 118/74 02/25/23 15:24 Pulse Ox 96 02/25/23 15:24 Oxygen Delivery Method Room Air 02/25/23 15:24 BMI result Body Mass Index 31.1 Const Other: Vital signs reviewed. Constitutional: Non-toxic appearing. No acute distress. Well-developed and well-nourished. HEENT: Normocephalic and atraumatic. Tympanic membranes without erythema, edema, or bulging bilaterally. External auditory canals without erythema or edema bilaterally. Moist mucous membranes. No pharyngeal erythema or exudates. Skin: Warm and dry. No rashes or lesions noted. Neck: Full and painless range of motion. No cervical lymphadenopathy. Cardio: Regular rate and rhythm. No murmurs, gallops, or rubs. No lower extremity edema. No JVD. Pulmonary: No respiratory distress. No accessory muscle usage. Clear to auscultation bilaterally without wheezing, crackles, or rhonchi. Gastrointestinal: Significant tenderness to palpation of the left lower quadrant. Patient appears uncomfortable while sitting down. Normoactive bowel sounds in all 4 quadrants. Genitourinary: No CVA tenderness. Musculoskeletal: Normal range of motion in joints throughout the body. No deformity or other signs of injury. No tenderness to palpation of the lumbar spine or paraspinal musculature. No tenderness to palpation of the SI joints bilaterally. Neuro: Alert and oriented x4. Cranial nerves 2-12 grossly intact. No focal deficits appreciated. Psych: Normal mood and affect. Assessment & Plan Assessment & Plan (1) Left lower quadrant abdominal pain: Code(s): R10.32 - Left lower quadrant pain Plan: This is a 47-year-old male presenting to the office complaining of severe left lower quadrant abdominal pain. There are several inconsistencies in his story so it is unclear exactly where his symptoms are or how they started. Regardless, upon my evaluation, patient is reporting severe left lower quadrant abdominal pain he has significant tenderness to palpation of his left lower quadrant. Given the severity of patient's pain to the point where he is unable to walk or even sit normally, I have recommended that he proceed to the emergency room to rule out an intra-abdominal infection such as diverticulitis or a more severe lumbar pathology. Patient and his agree with this plan and they are proceeding directly to the emergency room. I have called the [facility] Emergency Room and they are aware of patient's arrival. Coding Level of Care Code Est Pt Level 3 (78687) Diagnoses Left lower quadrant abdominal pain R10.32
[2023-02-25 15:24] VITALS: BP 118/74; PULSE 88; O2SAT 96; BMI 31.1
== END 2023-02-25 17:00 ==
PROVIDERS: PCP Nurse Practitioner Family; Visit Provider Physician Assistant Medical
DX: R10.32 Left lower quadrant pain (principal)
CPT/HCPCS: 99213

== ENCOUNTER 2023-02-25 16:11 | Emergency (ER) | payer OTHER, SELFPAY ==
--- NOTE | 2023-02-25 16:42 | ED.ABDPAIN ---
HPI - Abdominal Pain General Chief Complaint: Abdominal Pain Stated Complaint: lower L abd pain Time Seen by Provider: 02/25/23 17:54 Source: patient and family ( Spouse) Mode of arrival: ambulatory Limitations: no limitations History of Present Illness HPI narrative: a 47 year old male came in for evaluation of left lower quadrant abdominal pain. Pain started since this a.m. has been constant since morning pain is severe 03/01 no fever, chills, nausea, vomiting, constipation, or diarrhea. Last bowel movement was this morning and was normal decline any frequency urination or dysuria, no blood in the urine or in the stool, never had similar pain in the past. No intra abdominal history of surgery. Related Data Home Medications Medication Instructions Recorded Confirmed buprenorphine 8 mg-naloxone 2 mg 10 mg sublingual DAILY 11/30/21 02/15/23 sublingual film atorvastatin 80 mg tablet 80 mg PO BEDTIME 02/25/23 Previous Rx's Medication Instructions Recorded albuterol sulfate 90 mcg/actuation 2 puff inhalation Q4-6H PRN 05/12/22 aerosol inhaler shortness of breath or wheezing #6.7 grams metoprolol succinate 25 mg 12.5 mg (1/2 x 25 mg) PO DAILY #45 08/20/22 tablet,extended release 24 hr tabs losartan 25 mg tablet 25 mg PO DAILY #90 tabs 10/07/22 quetiapine 300 mg tablet 300 mg PO BEDTIME #30 tabs 10/07/22 tizanidine 4 mg tablet 4 mg PO BEDTIME PRN muscle 01/25/23 spasticity 30 days #30 tabs ibuprofen 600 mg tablet 600 mg PO Q6-8H PRN pain #20 tabs 02/03/23 cyclobenzaprine 10 mg tablet 10 mg PO TID PRN muscle spasm #10 02/25/23 tabs ibuprofen 800 mg tablet 800 mg PO TID PRN pain #14 tabs 02/25/23 Allergies Allergy/AdvReac Type Severity Reaction Status Date / Time No Known Allergies Allergy Verified 02/25/23 15:26 [No Known Allergies*] Review of Systems Review of Systems All other systems are reviewed and are negative Constitutional: Reports as per HPI and Reports no additional constitutional complaints Eyes: Reports as per HPI and Reports no additional eye complaints Reports system reviewed and no additional complaints, except as documented Cardiovascular: Reports as per HPI and Reports no additional cardiovascular complaints Respiratory: Reports as per HPI and Reports no additional respiratory complaints Gastrointestinal: Reports as per HPI and Reports no additional gastrointestinal complaints Genitourinary: Reports no additional female genitourinary complaints Musculoskeletal: Reports no additional musculoskeletal complaints Skin/Breast: Reports system reviewed and no additional complaints, except as docu Psychiatric: Reports no additional psychiatric complaints Endocrine: Reports no additional endocrine complaints Hematologic/Lymphatic: Reports no additional hematologic/lymphatic complaints Allergic/Immunologic: Reports no additional allergic/immunologic complaints Reports system reviewed and no additional complaints, except as documented and Reports Abnormal speech present [facility] Past Medical History Medical History Full dentures Numbness and tingling in left hand Personal history of COVID-19 Depression Anxiety TMJ (dislocation of temporomandibular joint) Opioid abuse Back pain Hypertension Bipolar 1 disorder History of gynecomastia (~02/13/20) Surgical History Hx of hand surgery History of breast lump/mass excision History of vasectomy Family History Family History Mother History of breast cancer Other Mental health disorder Substance use disorder Social History Social History Housing: Apartment Are you a primary health care manager to a significant other at home: No Do you presently have visiting nurse or other home services: No Alcohol intake: former Patient Tobacco Use Status: Former Tobacco user Quit Date: 2015 Tobacco use type: Cigarette Years Smoked: quit 6 years ago Smoked in Last 30 Days: No e-Cigarette/Vaping Use: Currently Using Second Hand Smoke Exposure: Yes Use of substances other than those prescribed or required for medical reasons: No Substance Use Type: Opiates Advance Directives: Yes Advance Directives Information Provided: No Advance Directives on File: No Advance Directives Date on File: 05/28/20 service: No Current occupational status: unemployed 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 Blood pressure elevated. Heart rate normal. Respiratory rate normal. Temperature normal. Oxygen saturation normal. Appearance: Alert. Oriented X3. No acute distress. Head: Normal external exam. Normocephalic. Atraumatic. No Cervantes signs noted. No raccoon eyes noted Eyes: PERRLA. EOMI. Conjunctiva and sclera normal. Eyelids normal. ENT: TM's Normal. Pharynx normal. Uvula midline. Moist mucous membranes. No trismus noted. No drooling noted. No muffled voice noted. Neck: Normal inspection. Neck supple. FROM. No adenopathy. Thyroid Normal. No meningeal signs. No neck mass noted. CVS: Normal heart rate and rhythm. Heart sound normal. No murmurs noted. Pulses normal throughout. Respiratory: No respiratory distress. Painless inspiration. Breath sounds normal. No wheezes/rales/rhonchi noted. Chest nontender. No accessory muscle usage noted or decreased air movement noted. Abdomen: Soft , left lower quadrant tenderness, no rebound tenderness, voluntarily guarding. Bowel sounds normal in all 4 quadrants. No distention noted. No organomegaly noted. No visible injury noted. Back: No CVA tenderness. Full range of motion noted. Skin: Skin warm and dry. Normal skin color. Normal skin turgor. No rashes/lesions/lacerations noted. Extremities: No lower extremity edema. Extremities exhibit normal range of motion. Extremities nontender. Neuro: Oriented X 3. Cranial nerve exam: II-XII are grossly intact No motor deficit. No sensory deficit. Reflexes normal. Course Course Course Narrative: This is an RME: Additional HPI, ROS, PE not included below will be deferred to primary provider. Patient is a 47-year-old male who presents emergency department for evaluation of left lower quadrant abdominal pain, the pain was first noted upon awakening today. Pain is exacerbated with particular movements but is felt while at rest as well. Denies associated nausea, vomiting, diarrhea, constipation, hematochezia, melena, dysuria, urinary frequency, hematuria. +guarding, TTP Plan: labs, U/A, CT AP Reevaluation(s) Reevaluation #1: patient felt better after was given morphine and Toradol. CT abdomen pelvis is unremarkable for acute pathology. Patient's symptoms is likely secondary to strain muscle, will discharge with muscle relaxant and NSAIDs. Time: 19:35 Medical Decision Making Differential Diagnosis Differential Diagnoses: The differential diagnosis associated with the presentation includes ( Abdominal pain strain, left kidney stone, diverticulitis, colitis, pancreatitis, severe anemia, electrolyte abnormality, UTI.) Admission/Observation Consideration of admission/observation: Escalation of care including admission/observation considered Lab Data MDM Lab Attestation statement: I reviewed the patient's lab results. 02/25/23 16:58 02/25/23 16:58 Labs: Lab Results 02/25/23 02/25/23 Range/Units 16:58 18:53 WBC 6.3 (4.8-10.8) X10*3/uL RBC 4.22 L (4.60-5.80) X10*6/uL Hgb 12.7 L (14.0-18.0) g/dl Hct 37.2 L (42.0-52.0) % MCV 88.2 (80.0-98.0) fL MCH 30.1 (27.0-33.0) pg MCHC 34.1 (31.0-36.0) g/dl RDW 11.8 (11.0-16.0) % Plt Count 217 (160-400) X10*3/uL MPV 9.6 (9.4-12.4) fL Immature Gran % (Auto) 0.2 (0.0-0.4) % Neut % (Auto) 47.0 (45-73) % Lymph % (Auto) 41.6 H (20-40) % [place] % (Auto) 5.3 (2-11) % Eos % (Auto) 5.1 H (0-4) % Baso % (Auto) 0.8 (0-2) % Lymph # (Auto) 2.6 (1.2-4.9) X10*3/uL [place] # (Auto) 0.3 (0.1-1.2) X10*3/uL Eos # (Auto) 0.3 (0.0-0.4) X10*3/uL Baso # (Auto) 0.1 (0.0-0.2) X10*3/uL Abs Immat Gran (auto) 0.01 (0.00-0.03) X10*3/uL Absolute Neuts (auto) 3.0 (2.0-8.3) x10*3/uL Absolute Nucleated RBC 0.000 (0.0-0.012) X10*3/uL Nucleated RBC % (auto) 0.0 (0.0-0.2) /100WBC Sodium 141 (135-145) mmol/L Potassium 3.9 (3.3-5.1) mmol/L Chloride 103 (96-108) mmol/L Carbon Dioxide 26 (22-29) mmol/L Anion Gap 16 (12-20) BUN 8 L (9-16) mg/dL Creatinine 0.86 (0.5-1.4) mg/dL Estim Creat Clear Calc 130.5 Estimated GFR > 60 Random Glucose 99 (60-115) mg/dL Calcium 9.6 (8.4-10.2) mg/dL Total Bilirubin 0.7 (0.0-1.0) mg/dL AST 21 (5-37) U/L ALT 29 (0-40) U/L Alkaline Phosphatase 44 (39-117) U/L Total Protein 6.7 (6.5-8.0) g/dL Albumin 4.1 (3.5-5.0) g/dL Lipase 12 (8-78) U/L Urine Color Yellow Urine Appearance Clear Urine pH 5.5 (5.0-9.0) Ur Specific [place] >= 1.030 H (1.005-1.025) Urine Protein Negative (Neg-Trace) mg/dL Urine Glucose (UA) Negative (Negative) mg/dL Urine Ketones Negative (Negative) mg/dL Urine Blood Negative (Negative) Urine Nitrite Negative (Negative) Ur Leukocyte Esterase Negative (Negative) Independent Interpretation I performed an independent interpretation of an: CT Scan ( abdomen and pelvis :Fatty infiltration of the pancreas. Mild splenomegaly. A cause for the patient's left lower quadrant pain has not been found. ) Radiology Impression Discussion of test interpretation with radiology: I have reviewed the radiologist's reading. Medications Administered Discontinued Medications Generic Name Dose Route Start Last Admin Trade Name Freq PRN Reason Stop Dose Admin Iohexol 100 ml 02/25/23 18:33 02/25/23 18:33 Iohexol 350 Mg/Ml 100 Ml Infus..Btl IV 02/25/23 18:34 85 ml ONCE ONE Administration Ketorolac Tromethamine 30 mg 02/25/23 18:11 02/25/23 18:34 Ketorolac Tromethamine 30 Mg/Ml Vial IVPUSH 02/25/23 18:12 30 mg ONCE ONE Administration Morphine Sulfate 2 mg 02/25/23 18:11 02/25/23 18:35 Morphine Sulfate 2 Mg/Ml Cartridge IVPUSH 02/25/23 18:12 2 mg ONCE ONE Administration Protocol Discharge Plan Discharge Clinical Impression: Abdominal pain, Pulled muscle Patient Disposition: Home, Self-Care Instructions: Muscle Strain (ED) Prescriptions: New cyclobenzaprine 10 mg tablet 10 mg PO TID PRN (Reason: muscle spasm) Qty: 10 0RF ibuprofen 800 mg tablet 800 mg PO TID PRN (Reason: pain) Qty: 14 0RF No Action metoprolol succinate 25 mg tablet extended release 24 hr 12.5 mg PO DAILY Qty: 45 1RF Rx Instructions: Schedule next PCP appt for more refills losartan 25 mg tablet 25 mg PO DAILY Qty: 90 1RF quetiapine 300 mg tablet 300 mg PO BEDTIME Qty: 30 2RF tizanidine 4 mg tablet 4 mg PO BEDTIME PRN (Reason: muscle spasticity) 30 Days Qty: 30 2RF ibuprofen 600 mg tablet 600 mg PO Q6-8H PRN (Reason: pain) Qty: 20 0RF buprenorphine-naloxone 8-2 mg film 10 mg sublingual DAILY atorvastatin 80 mg tablet 80 mg PO BEDTIME Rx Instructions: Schedule next PCP appt for more refills albuterol sulfate 90 mcg/actuation HFA aerosol inhaler 2 puff inhalation Q4-6H PRN (Reason: shortness of breath or wheezing) Qty: 6.7 0RF Rx Instructions: May dispense medication equivalent accepted by his insurance Referrals: Jorge Solis, [facility] PHYSICIAN[facility] [Primary Care Provider] -
[2023-02-25 16:43] VITALS: BP 147/81; PULSE 96; RESP 14; TEMP 37.1; O2SAT 98; BMI 30.7
--- NOTE | 2023-02-25 18:47 | PC.NURSE ---
Reports improved pain relief after administration of pain medication
== END 2023-02-25 20:01 | disposition home or self-care (01) ==
PROVIDERS: Emergency Provider Emergency Medicine; PCP Nurse Practitioner Family
DX: R10.32 Left lower quadrant pain (principal); S39.011A Strain of muscle, fascia and tendon of abdomen, initial encounter; X58.XXXA Exposure to other specified factors, initial encounter; I10 Essential (primary) hypertension; Z87.891 Personal history of nicotine dependence; Z79.899 Other long term (current) drug therapy; Y93.9 Activity, unspecified; Y92.9 Unspecified place or not applicable; Y99.9 Unspecified external cause status
CPT/HCPCS: 36415; 74177; 80053; 81003; 83690; 85025; 96374; 96375; 99284; J1885; J2270; Q9967

== ENCOUNTER 2023-04-18 11:21 | Outpatient (AMB) | payer OTHER, SELFPAY ==
[2023-04-18 13:01] VITALS: BP 130/80; PULSE 82; TEMP 36.6; O2SAT 98
--- NOTE | 2023-04-18 13:01 | MHC.OFFWIV ---
Intake Vital Signs 04/18/23 13:01 Height 5 ft 11 in Weight 215 lb BMI 30.0 BP 130/80 Blood Pressure Location Rt brachial Position Sitting Pulse 82 Pulse Source Pulse Oximeter Temp 97.8 F Temp Source Temporal Artery Scan Pulse Oximetry (%) 98 Oxygen Delivery Method Room Air Intake Visit Reasons: EST/stomach issues/[phone] Intake Note: pt is here for c/o stomach issues 3x weeks, unable to eat feels sick all the time Patient Tobacco Use Status: Former Tobacco user Quit Date: 2015 Allergies No Known Allergies [No Known Allergies*] Allergy (Verified 04/18/23 13:49) Medication List - Last Reconciled 04/18/23 by Estefani Loco, PUMPING STATION ENGINEER, GRAVITY PROSPECTING OBSERVER albuterol sulfate 90 mcg/actuation 2 puffs inhalation Q4-6H PRN atorvastatin 80 mg PO BEDTIME buprenorphine-naloxone 8-2 mg 10 mg sublingual DAILY ibuprofen 600 mg PO Q6-8H PRN ibuprofen 800 mg PO TID PRN losartan 25 mg PO DAILY metoprolol succinate ER 12.5 mg (1/2 x 25 mg) PO DAILY quetiapine 300 mg PO BEDTIME simethicone 180 mg PO BID PRN tizanidine 4 mg PO BEDTIME PRN 30 days Do you need a note to return to daycare/school/sports/work: Yes HPI EST/stomach issues/[phone] HPI Details Genaro is a very pleasant 47-year-old male who presents to the walk-in Clinic today for 3 weeks of nausea, bloating and decreased p.o. intake. The patient denies abdominal pain, vomiting, constipation or diarrhea. He states he feels hungry but the smell of food will make him nauseated. He feels bloated after only a few bites. Patient reports his stools have been unusual for him, more soft than normal. He does not feel constipated. The patient denies any changes in medications, diet, stress in the last 3 weeks. He denies use of alcohol or illicit substances. He had CT abd/pelvis last month in the ER for LLQ pain, that pain has since resolved. CT results reviewed with patient today, as per below. [facility] Medical History Full dentures Numbness and tingling in left hand Personal history of COVID-19 Depression Anxiety TMJ (dislocation of temporomandibular joint) Opioid abuse Back pain Hypertension Bipolar 1 disorder History of gynecomastia (~02/13/20) Surgical History Hx of hand surgery History of breast lump/mass excision History of vasectomy Family History Mother History of breast cancer Other Mental health disorder Substance use disorder Housing: Apartment Are you a primary nurse healthcare manager to a significant other at home: No Do you presently have visiting nurse or other home services: No Alcohol intake: former Patient Tobacco Use Status: Former Tobacco user Quit Date: 2015 Tobacco use type: Cigarette Years Smoked: quit 6 years ago e-Cigarette/Vaping Use: Currently Using Second Hand Smoke Exposure: Yes Substance Use Type: Opiates Advance Directives Date on File: 05/28/20 service: No Current occupational status: unemployed 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 Answers questions appropriately. Fully engaged in examination. Skin: warm, dry, intact HEENT: Normocephalic. Hearing intact. Non-icteric. Oral mucosa pink, moist. Cardiac: External chest normal in appearance. Respiratory: No cough, audible wheezing or stridor. Abdomen: without gross distension. nontender to palpation in all quadrants. +bowel sounds in all quadrants. MS: No obvious swelling or deformities. Neurological: Oriented to person, place, time and situation. Thought process intact. No gait abnormalities appreciated. Psychiatric: Appropriate mood and affect. Good judgment and insight. Results Reviewed Results Reviewed: 02/25/23 EXAMINATION: CT ABDOMEN AND PELVIS WITH CONTRAST CLINICAL INFORMATION: Left lower quadrant pain FINDINGS: LUNG BASES: The visualized lung bases are unremarkable. LIVER, GALLBLADDER, AND BILIARY TREE: The liver is normal in size, shape, and attenuation. No focal hepatic lesion or biliary ductal dilatation is present. The gallbladder is unremarkable with no evidence of radiopaque gallstones, gallbladder wall thickening, or obvious pericholecystic inflammatory changes. PANCREAS: There is fatty infiltration of the pancreas. SPLEEN: Spleen is enlarged at 13.5 cm. ADRENAL GLANDS: Unremarkable. KIDNEYS AND URETERS: The kidneys are normal in size, shape, and attenuation. No hydronephrosis, hydroureter, or calculi seen. No perinephric stranding. BLADDER: Unremarkable. GASTROINTESTINAL TRACT: The small and large bowel are unremarkable. The appendix is unremarkable. ABDOMINAL WALL: No significant hernia is appreciated. LYMPH NODES: Normal. VASCULAR: Calcific plaque is seen in the infrarenal aorta and iliofemoral vessels without aneurysm. PELVIC VISCERA: The prostate and seminal vesicles are unremarkable. OSSEOUS STRUCTURES: Unremarkable. IMPRESSION: Fatty infiltration of the pancreas. Mild splenomegaly. A cause for the patient's left lower quadrant pain has not been found. Assessment & Plan Assessment & Plan (1) Abdominal bloating: Code(s): R14.0 - Abdominal distension (gaseous) Plan Patient complaining of abdominal bloating, nausea and decreased po intake for last 3 weeks. Tolerating liquids, no signs of malnutrition or dehydration on exam today. Review of recent CT abd/pelvis notable for Fatty infiltration of the pancreas. Mild splenomegaly. Abdomen exam benign, nontender throughout with positive bowel sounds in all quadrants. Push fluids. Advance diet as tolerated. Simethicone 180mg po BID PRN bloating Follow up with pcp, may benefit from GI referral given patients continued GI concerns. Return to clinic for any new or worsening symptoms. Go to ER for any sudden, severe abd pain, blood in urine, stool or emesis, intractable vomiting or diarrhea. Medications: New simethicone after meals 180 mg PO BID PRN 30 caps 0RF abdominal distention Coding Level of Care Code Est Pt Level 4 (53241) Diagnoses Abdominal bloating R14.0
== END 2023-04-18 13:57 | disposition home or self-care (01) ==
PROVIDERS: PCP Nurse Practitioner Family; Visit Provider Registered Nurse Emergency
DX: R14.0 Abdominal distension (gaseous) (principal)
CPT/HCPCS: 99213

== ENCOUNTER 2023-06-02 11:09 | Outpatient (AMB) | payer OTHER, SELFPAY ==
--- NOTE | 2023-06-02 11:13 | MHC.PC.OV ---
Vital Signs 06/02/23 11:16 Height 5 ft 11 in Weight 209 lb BMI 29.1 BP 120/84 Blood Pressure Location Rt brachial Position Sitting Pulse 74 Pulse Source Pulse Oximeter Pulse Oximetry (%) 98 Oxygen Delivery Method Room Air Intake Visit Reasons: Annual PE Intake Note: Patient here for physical exam and would like to talk about being sick since March, he states he is very fatigued, diarrhea, loss of appetite, weight loss and left lower quad of pain. no colonoscopy Allergies No Known Allergies [No Known Allergies*] Allergy (Verified 06/02/23 11:18) Medication List - Last Reconciled 06/02/23 by Jorge Solis, SINGLE POINTED OPERATOR- atorvastatin 80 mg PO BEDTIME buprenorphine-naloxone 8-2 mg 10 mg sublingual DAILY ibuprofen 600 mg PO Q6-8H PRN ibuprofen 800 mg PO TID PRN losartan 25 mg PO DAILY metoprolol succinate ER 12.5 mg (1/2 x 25 mg) PO DAILY quetiapine 300 mg PO BEDTIME tizanidine 4 mg PO BEDTIME PRN 30 days Tobacco use date assessed: 06/02/23 Dental Screening Dental Screen Date: 06/02/23 Did you have a dental visit in the last 12 months?: No Did you have a dental problem in the last 6 months where you did not have access to dental care?: No Was dental information given to patient?: No HPI Annual PE HPI Details Pt is here for a PE. Will order labs. Pt c/o diarrhea. He reports that this has been present for over a month. Pt states that his stool is very foul smelling. He has to go to the bathroom approximately an hour after eating. Pt has been struggling to eat as well due to severe nausea. Pt reports some LLQ discomfort as well. He also reports fatigue. He has not been on an antibiotic or taken any new medications. Will order stool studies and CT. Will also refer to GI for this and colon screen. [facility] Medical History Full dentures Numbness and tingling in left hand Personal history of COVID-19 Depression Anxiety TMJ (dislocation of temporomandibular joint) Opioid abuse Back pain Hypertension Bipolar 1 disorder History of gynecomastia (~02/13/20) Surgical History Hx of hand surgery History of breast lump/mass excision History of vasectomy Family History Mother History of breast cancer Other Mental health disorder Substance use disorder Social History Housing: Apartment Are you a primary restorative care technician to a significant other at home: No Do you presently have visiting nurse or other home services: No Alcohol intake: former Patient Tobacco Use Status: Former Tobacco user Quit Date: 2015 Tobacco use type: Cigarette Years Smoked: quit 6 years ago e-Cigarette/Vaping Use: Currently Using Second Hand Smoke Exposure: Yes Substance Use Type: Opiates Advance Directives Date on File: 05/28/20 service: No Current occupational status: unemployed 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 How often do you have a drink containing alcohol?: Monthly or less 2. How many drinks containing alcohol do you have on a typical day when you are drinking?: 1 or 2 3. How often do you have six or more drinks on one occasion?: Never Total Score: 1 Score Reviewed/Action Taken: No NABIL-7 AMB Questionnaire NABIL-7 Date NABIL - 7 assessed: 09/07/21 Source: Developed by Drs. Shaq Metzger, Nory Olmedo, Rodger Tran and colleagues, with an educational lien from [employer]. Review of Systems Const Denies chills, Reports fatigue and Denies fever(s) Eyes Denies blurry vision ENT Denies vertigo, Denies dizziness and Denies sore throat Card Denies chest pain at rest, Denies chest pain with activity, Denies diaphoresis, Denies dyspnea and Denies dyspnea on exertion Resp Denies cough, Denies dyspnea, Denies dyspnea on exertion and Denies wheezing GI Reports abdominal pain (LLQ), Denies melena, Denies hematochezia, Denies constipation, Reports diarrhea, Reports loose stools and Reports nausea Denies hematuria Musc Denies numbness and Denies tingling Skin/Breast Denies lesions Neuro Denies vertigo, Denies dizziness, Denies numbness and Denies tingling Psych Denies anxiety, Denies depression, Denies homicidal ideation, Denies suicidal ideation and Denies other (substance abuse) Endo Reports fatigue Aller/Immun Denies wheezing Physical exam (Primary Care) Vital Signs: Last Vital Signs Pulse 74 06/02/23 11:16 BP 120/84 06/02/23 11:16 Pulse Ox 98 06/02/23 11:16 Oxygen Delivery Method Room Air 06/02/23 11:16 BMI result Body Mass Index 29.1 Tobacco/Smoking Status: Tobacco use Status Tobacco use date assessed 06/02/23 06/02/23 11:21 Patient Tobacco Use Status Former Tobacco user 06/02/23 11:14 Tobacco use type Cigarette 06/02/23 11:14 e-Cigarette/Vaping Use Currently Using 06/02/23 11:14 Thrive Assessment: Date of Thrive Assessment Date Thrive assessed 08/18/21 06/02/23 11:14 Const General: cooperative Nutritional Appearance: well nourished Orientation/consciousness: patient oriented x3 HENMT Other: cerumen noted bilat, after ear lavage TMs easily seen Head: Yes normal to inspection, Yes normocephalic and Yes atraumatic Eyes General: appearance normal, both eyes and all related structures Alignment and Position: alignment normal and position normal Neck Neck: Yes normal visual inspection and Yes no lymphadenopathy Thyroid: Thyroid normal Resp Effort & Inspection: normal respiratory effort Auscultation: clear to auscultation bilaterally Cardio Rate: regular rate Rhythm: regular rhythm Heart sounds: S1 normal heart sound present, S2 normal heart sound present and no murmurs GI Palpation (GI): Soft to palpation and Tenderness to palpation present (GI) (slight tenderness with deep palpation) in the LLQ Auscultation: normal bowel sounds Male General Exam: Yes normal external exam Penis: normal penis Scrotum: scrotum normal, testes descended bilaterally and no inguinal hernias Testes: no testicular mass Skin Rashes: no rashes Neuro General: patient oriented x3, moves all extremities, no focal motor deficits and deep tendon reflexes 2+ bilaterally Romberg Test: Negative Psych Appearance: grossly normal Mental Status: mental status grossly normal Speech and movement: Normal speech and movement present Affect: normal affect Attitude: cooperative Thought process: Normal thought process present Thought content: Normal thought content present Insight: Good insight present (Psych) Judgement: Good judgement present (Psych) Office Procedures Cerumen Removal From which ear canal was the cerumen removed: bilateral Removal: irrigation Notes: patient tolerated procedure well [id number] Irrigation/Lavage Assessment and Plan Assessment & Plan (1) Physical exam: Code(s): Z00.00 - Encounter for general adult medical examination without abnormal findings (2) Screening for colon cancer: Code(s): Z12.11 - Encounter for screening for malignant neoplasm of colon (3) Diarrhea: Code(s): R19.7 - Diarrhea, unspecified Plan: stool studies, blood draw, referral to gastro (4) Nausea: Code(s): R11.0 - Nausea (5) Impacted cerumen: Code(s): H61.20 - Impacted cerumen, unspecified ear Plan: flushed without difficulty, clear Plan The patient agreed to the use of a district medical examiner for this encounter. Scribed for ZAIRE Saleem- by Kaylie Clemons district medical examiner, on 06/02/2023 at 11:40 EST. Orders: Orders Complete Blood Count Auto Diff Today Z00.00 - Encounter for general adult medical examination without abnormal findings Comprehensive [place]ary. Panel Fast Today Z00.00 - Encounter for general adult medical examination without abnormal findings TSH reflex Free T4 Today Z00.00 - Encounter for general adult medical examination without abnormal findings UA CC w/rflx Micro + Cult Today Z00.00 - Encounter for general adult medical examination without abnormal findings CDiff Gene PCR Today R19.7 - Diarrhea, unspecified Erythrocyte Sedimentation Rate Today R19.7 - Diarrhea, unspecified C Reactive Protein Today R19.7 - Diarrhea, unspecified Transglutaminase IgA Today R19.7 - Diarrhea, unspecified CT abdomen pelvis wo IV con Today R11.0 - Nausea, R19.7 - Diarrhea, unspecified Lipid Panel Today Z00.00 - Encounter for general adult medical examination without abnormal findings GI Panel Today R19.7 - Diarrhea, unspecified H pylori Ag Stool Today R19.7 - Diarrhea, unspecified Endomysial IgA rflx Titer Today R19.7 - Diarrhea, unspecified Referrals Gastroenterology Referral R11.0 - Nausea, R19.7 - Diarrhea, unspecified, Z12.11 - Encounter for screening for malignant neoplasm of colon Coding Level of Care Code Est Pt Prev Care 40-64y(64868) Diagnoses Physical exam Z00.00 Screening for colon cancer Z12.11 Diarrhea R19.7 Nausea R11.0 Impacted cerumen H61.20 CPT Codes Office Procedure - CPT: 38087-Qzt Irrigation/Lavage ([id number])
[2023-06-02 11:16] VITALS: BP 120/84; PULSE 74; O2SAT 98; BMI 29.1
== END 2023-06-02 12:14 | disposition home or self-care (01) ==
PROVIDERS: PCP Nurse Practitioner Family; Visit Provider Nurse Practitioner Family
DX: Z00.00 Encounter for general adult medical examination without abnormal findings (principal); Z12.11 Encounter for screening for malignant neoplasm of colon; R19.7 Diarrhea, unspecified; R11.0 Nausea; H61.23 Impacted cerumen, bilateral
CPT/HCPCS: 69209; 99396

== ENCOUNTER 2023-06-02 12:19 | Outpatient (REF) | payer OTHER, SELFPAY ==
[2023-06-02 16:11] LABS: MANUAL DIFF FLAG NO
[2023-06-02 16:22] LABS: Appearance Urine Clear; Color Urine Yellow; Glucose Urine UA Negative (Negative); Leukocyte Esterase Urine Negative (Negative); Nitrite Urine Negative (Negative); PH 6.5 (5.0-9.0); Urine Blood Negative (Negative); Urine Ketones Negative (Negative); Urine Protein Negative (Neg-Trace)
[2023-06-02 16:22] LABS: Basophils Percent Auto 0.6 % (0-2); Eosinophils Absolute Auto 0.1 X10*3/uL (0.0-0.4); Eosinophils Percent Auto 2.8 % (0-4); Hematocrit 36.4 % (42.0-52.0); Hemoglobin 12.6 g/dl (14.0-18.0); Imm Gran Abs Auto 0.02 X10*3/uL (0.00-0.03); Imm Gran Pct Auto 0.4 % (0.0-0.4); Lymphocytes Absolute Auto 1.8 X10*3/uL (1.2-4.9); Lymphocytes Percent Auto 39.2 % (20-40); Mean Corpuscular HGB Conc 34.6 g/dl (31.0-36.0); Mean Corpuscular Volume 86.7 fL (80.0-98.0); Mean Platelet Volume 10.1 fL (9.4-12.4); Monocytes Absolute Auto 0.3 X10*3/uL (0.1-1.2); Monocytes Percent Auto 6.4 % (2-11); Neutrophils Absolute Auto 2.4 x10*3/uL (2.0-8.3); Neutrophils Percent Auto 50.6 % (45-73); Platelet Count 212 X10*3/uL (160-400); Red Cell Distribution Width 12.2 % (11.0-16.0); White Blood Count 4.7 X10*3/uL (4.8-10.8)
[2023-06-02 16:49] LABS: Alanine Aminotransferase 23 U/L (0-40); Albumin Level 4.4 g/dL (3.5-5.0); Alkaline Phosphatase 36 U/L (39-117); Anion Gap 13 (12-20); Aspartate Amino Transferase 18 U/L (5-37); Bilirubin Total 0.6 mg/dL (0.0-1.0); Blood Urea Nitrogen 10 mg/dL (9-16); C Reactive Protein 0.43 mg/dL (< or = 0.50); Calcium 9.8 mg/dL (8.4-10.2); Carbon Dioxide 27 mmol/L (22-29); Chloride 104 mmol/L (96-108); Cholesterol 191 mg/dL (<200); Estimated Glomerular Filt Rate > 60; Glucose Fasting 96 mg/dL (60-99); HDL Cholesterol 39 mg/dL (>40); LDL Cholesterol Calculated 135 mg/dL (<100); Potassium 4.3 mmol/L (3.3-5.1); Sodium 140 mmol/L (135-145); Triglycerides 88 mg/dL (<150)
[2023-06-02 16:52] LABS: TSH reflex Free T4 2.21 uIU/mL (0.32-4.0)
[2023-06-02 17:17] LABS: Erythrocyte Sedimentation Rate 16 MM/HR (0-15)
[2023-06-06 20:59] LABS: Transglutaminase IgA <1.0 U/mL
[2023-06-10 15:48] LABS: Endomysial IgA Antibody Negative (Negative)
== END 2023-06-02 12:20 | disposition home or self-care (01) ==
LOC: HO.HMGCLDS 12:19
PROVIDERS: PCP Nurse Practitioner Family; Visit Provider Nurse Practitioner Family
DX: Z00.00 Encounter for general adult medical examination without abnormal findings (principal); R19.7 Diarrhea, unspecified; D64.9 Anemia, unspecified
CPT/HCPCS: 36415; 80053; 80061; 81003; 84443; 85025; 85652; 86140; 86231; 86364

== ENCOUNTER 2023-06-03 07:45 | Outpatient (REF) | payer OTHER, SELFPAY ==
[2023-06-03 12:19] LABS: CDiff Gene PCR NEGATIVE (Negative)
[2023-06-03 14:47] LABS: Adenovirus F 40/41 Not Detected (Not Detect.); Astrovirus Not Detected (Not Detect.); Campylobacter Not Detected (Not Detect.); Cryptosporidium Not Detected (Not Detect.); Cyclospora cayetanensis Not Detected (Not Detect.); E. coli EAEC Not Detected (Not Detect.); E. coli EPEC Detected (Not Detect.); E. coli ETEC Not Detected (Not Detect.); E. coli STEC Not Detected (Not Detect.); Entamoeba histolytica Not Detected (Not Detect.); Giardia lamblia Not Detected (Not Detect.); Norovirus GI/GII Not Detected (Not Detect.); Plesiomonas shigelloides Not Detected (Not Detect.); Rotavirus A Not Detected (Not Detect.); Salmonella Not Detected (Not Detect.); Sapovirus Not Detected (Not Detect.); Shigella sp./EIEC Not Detected (Not Detect.); Vibrio Not Detected (Not Detect.); Vibrio Cholerae Not Detected (Not Detect.); Yersinia enterocolitica Not Detected (Not Detect.)
== END 2023-06-03 08:23 | disposition home or self-care (01) ==
LOC: HO.HMGCLNP 07:45
PROVIDERS: PCP Nurse Practitioner Family; Visit Provider Nurse Practitioner Family
DX: R19.7 Diarrhea, unspecified (principal)
CPT/HCPCS: 87338; 87493; 87507

== ENCOUNTER 2023-07-01 11:37 | Emergency (ER) | payer OTHER, SELFPAY ==
[2023-07-01 11:39] VITALS: BP 120/81; PULSE 88; RESP 20; TEMP 37.1; O2SAT 96; BMI 31.4
--- NOTE | 2023-07-01 11:40 | ED.GENADULT ---
HPI - General Adult General Chief complaint: Abdominal Pain Stated complaint: pain on L side Related Data Home Medications Medication Instructions Recorded Confirmed buprenorphine 8 mg-naloxone 2 mg 10 mg sublingual DAILY 11/30/21 06/02/23 sublingual film atorvastatin 80 mg tablet 80 mg PO BEDTIME 02/25/23 06/02/23 Previous Rx's Medication Instructions Recorded ibuprofen 600 mg tablet 600 mg PO Q6-8H PRN pain #20 tabs 02/03/23 ibuprofen 800 mg tablet 800 mg PO TID PRN pain #14 tabs 02/25/23 metoprolol succinate 25 mg 12.5 mg (1/2 x 25 mg) PO DAILY #45 03/08/23 tablet,extended release 24 hr tabs tizanidine 4 mg tablet 4 mg PO BEDTIME PRN muscle 03/08/23 spasticity 30 days #30 tabs losartan 25 mg tablet 25 mg PO DAILY #90 tabs 03/31/23 quetiapine 300 mg tablet 300 mg PO BEDTIME #90 tabs 04/22/23 metronidazole 500 mg tablet 500 mg PO Q8H 14 days #42 tabs 06/07/23 ondansetron 8 mg disintegrating 8 mg PO Q12H PRN nausea and 06/07/23 tablet vomiting 14 days #28 tabs Allergies Allergy/AdvReac Type Severity Reaction Status Date / Time No Known Allergies Allergy Verified 06/02/23 11:18 [No Known Allergies*] [facility] Past Medical History Medical History Full dentures Numbness and tingling in left hand Personal history of COVID-19 Depression Anxiety TMJ (dislocation of temporomandibular joint) Opioid abuse Back pain Hypertension Bipolar 1 disorder History of gynecomastia (~02/13/20) Surgical History Hx of hand surgery History of breast lump/mass excision History of vasectomy Family History Family History Mother History of breast cancer Other Mental health disorder Substance use disorder Social History Social History Housing: Apartment Are you a primary urgent care nurse practitioner to a significant other at home: No Do you presently have visiting nurse or other home services: No Alcohol intake: former Patient Tobacco Use Status: Former Tobacco user Quit Date: 2015 Tobacco use type: Cigarette Years Smoked: quit 6 years ago e-Cigarette/Vaping Use: Currently Using Second Hand Smoke Exposure: Yes Substance Use Type: Opiates Advance Directives: Yes Advance Directives on File: Yes Advance Directives Date on File: 05/28/20 service: No Current occupational status: unemployed 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 Patient is a 48-year-old male who presents emergency department for evaluation of left-sided abdominal pain that began today. He Reports 10 days ago he completed a 14 day course of antibiotics, this was started as he apparently was experiencing symptoms since food poisoning in April 14, states he was found to have E.coli infection, his abdominal pain had resolved after completing the antibiotics. He has an outpatient CT scan scheduled today due to the duration of having the symptoms prior, and appointment with GI in 3 days. Plan: labs Reevaluation(s) Reevaluation #1: Left without completing treatment Medical Decision Making Lab Data 07/01/23 12:50 07/01/23 12:50 Labs: Lab Results 07/01/23 Range/Units 12:50 WBC 5.6 (4.8-10.8) X10*3/uL RBC 4.50 L (4.60-5.80) X10*6/uL Hgb 13.6 L (14.0-18.0) g/dl Hct 39.5 L (42.0-52.0) % MCV 87.8 (80.0-98.0) fL MCH 30.2 (27.0-33.0) pg MCHC 34.4 (31.0-36.0) g/dl RDW 12.1 (11.0-16.0) % Plt Count 252 (160-400) X10*3/uL MPV 9.4 (9.4-12.4) fL Immature Gran % (Auto) 0.2 (0.0-0.4) % Neut % (Auto) 51.1 (45-73) % Lymph % (Auto) 37.9 (20-40) % [place] % (Auto) 7.2 (2-11) % Eos % (Auto) 2.7 (0-4) % Baso % (Auto) 0.9 (0-2) % Lymph # (Auto) 2.1 (1.2-4.9) X10*3/uL [place] # (Auto) 0.4 (0.1-1.2) X10*3/uL Eos # (Auto) 0.2 (0.0-0.4) X10*3/uL Baso # (Auto) 0.1 (0.0-0.2) X10*3/uL Abs Immat Gran (auto) 0.01 (0.00-0.03) X10*3/uL Absolute Neuts (auto) 2.9 (2.0-8.3) x10*3/uL Absolute Nucleated RBC 0.000 (0.0-0.012) X10*3/uL Nucleated RBC % (auto) 0.0 (0.0-0.2) /100WBC Sodium 139 (135-145) mmol/L Potassium 4.9 (3.3-5.1) mmol/L Chloride 104 (96-108) mmol/L Carbon Dioxide 28 (22-29) mmol/L Anion Gap 12 (12-20) BUN 7 L (9-16) mg/dL Creatinine 0.96 (0.5-1.4) mg/dL Estim Creat Clear Calc 106.7 Estimated GFR > 60 Random Glucose 103 (60-115) mg/dL Calcium 9.9 (8.4-10.2) mg/dL Magnesium 2.1 (1.6-2.6) mg/dL Total Bilirubin 0.6 (0.0-1.0) mg/dL AST 26 (5-37) U/L ALT 51 H (0-40) U/L Alkaline Phosphatase 27 L (39-117) U/L Total Protein 7.1 (6.5-8.0) g/dL Albumin 4.3 (3.5-5.0) g/dL Lipase 13 (8-78) U/L Discharge Plan Discharge Clinical Impression: Diarrhea Patient Disposition: Left W/O Completing Treatment Prescriptions: No Action metoprolol succinate 25 mg tablet extended release 24 hr 12.5 mg PO DAILY Qty: 45 1RF Rx Instructions: Schedule next PCP appt for more refills tizanidine 4 mg tablet 4 mg PO BEDTIME PRN (Reason: muscle spasticity) 30 Days Qty: 30 2RF losartan 25 mg tablet 25 mg PO DAILY Qty: 90 1RF quetiapine 300 mg tablet 300 mg PO BEDTIME Qty: 90 0RF ondansetron 8 mg tablet,disintegrating 8 mg PO Q12H PRN (Reason: nausea and vomiting) 14 Days Qty: 28 0RF metronidazole 500 mg tablet 500 mg PO Q8H 14 Days Qty: 42 0RF ibuprofen 600 mg tablet 600 mg PO Q6-8H PRN (Reason: pain) Qty: 20 0RF ibuprofen 800 mg tablet 800 mg PO TID PRN (Reason: pain) Qty: 14 0RF buprenorphine-naloxone 8-2 mg film 10 mg sublingual DAILY atorvastatin 80 mg tablet 80 mg PO BEDTIME Rx Instructions: Schedule next PCP appt for more refills Interventions: LWBS Worksheet Last Done: 07/01/23 18:47 Discharge Date/Time: 07/01/23 18:47
[2023-07-01 12:53] LABS: MANUAL DIFF FLAG NO
[2023-07-01 12:55] LABS: Basophils Absolute Auto 0.1 X10*3/uL (0.0-0.2); Basophils Percent Auto 0.9 % (0-2); Eosinophils Absolute Auto 0.2 X10*3/uL (0.0-0.4); Eosinophils Percent Auto 2.7 % (0-4); Hematocrit 39.5 % (42.0-52.0); Hemoglobin 13.6 g/dl (14.0-18.0); Imm Gran Abs Auto 0.01 X10*3/uL (0.00-0.03); Imm Gran Pct Auto 0.2 % (0.0-0.4); Lymphocytes Absolute Auto 2.1 X10*3/uL (1.2-4.9); Lymphocytes Percent Auto 37.9 % (20-40); Mean Corpuscular HGB Conc 34.4 g/dl (31.0-36.0); Mean Corpuscular Hemoglobin 30.2 pg (27.0-33.0); Mean Corpuscular Volume 87.8 fL (80.0-98.0); Mean Platelet Volume 9.4 fL (9.4-12.4); Monocytes Absolute Auto 0.4 X10*3/uL (0.1-1.2); Monocytes Percent Auto 7.2 % (2-11); Neutrophils Absolute Auto 2.9 x10*3/uL (2.0-8.3); Neutrophils Percent Auto 51.1 % (45-73); Platelet Count 252 X10*3/uL (160-400); Red Cell Distribution Width 12.1 % (11.0-16.0); White Blood Count 5.6 X10*3/uL (4.8-10.8)
[2023-07-01 13:16] LABS: Alanine Aminotransferase 51 U/L (0-40); Albumin Level 4.3 g/dL (3.5-5.0); Alkaline Phosphatase 27 U/L (39-117); Anion Gap 12 (12-20); Aspartate Amino Transferase 26 U/L (5-37); Bilirubin Total 0.6 mg/dL (0.0-1.0); Blood Urea Nitrogen 7 mg/dL (9-16); Calcium 9.9 mg/dL (8.4-10.2); Carbon Dioxide 28 mmol/L (22-29); Chloride 104 mmol/L (96-108); Creatinine Clr Calc Pharmacy 106.7; Estimated Glomerular Filt Rate > 60; Glucose Random 103 mg/dL (60-115); Lipase 13 U/L (8-78); Magnesium 2.1 mg/dL (1.6-2.6); Potassium 4.9 mmol/L (3.3-5.1); Sodium 139 mmol/L (135-145); Total Protein 7.1 g/dL (6.5-8.0)
== END 2023-07-01 18:47 | disposition left against medical advice (07) ==
PROVIDERS: Nurse Practitioner Family; Emergency Provider Emergency Medicine; PCP Nurse Practitioner Family
DX: R19.7 Diarrhea, unspecified (principal)
CPT/HCPCS: 36415; 80053; 83690; 83735; 85025; 99281; 99283

== ENCOUNTER 2023-07-01 13:53 | Outpatient (REF) | payer OTHER, SELFPAY ==
--- NOTE | ~2023-07-01 | CT_ITS ---
EXAMINATION: CT ABDOMEN AND PELVIS WITHOUT CONTRAST CLINICAL INFORMATION: Diarrhea. COMPARISON: CT abdomen and pelvis dated 02/25/2023. TECHNIQUE: Multidetector volumetric imaging was performed from the superior aspect of the liver through the pubic symphysis. Sagittal and coronal reformatted images were obtained on the technologist's workstation. This CT examination was performed using dose optimization techniques as appropriate, variously including the following: *Automated exposure control *Adjustment of mA and/or kV according to patient size (this includes techniques or standardized protocols for targeted exams where dose is matched to indication/reason for exam; i.e. extremities or head) *Use of iterative reconstruction technique DLP: 562 mGy-cm FINDINGS: LUNG BASES: The visualized lung bases are unremarkable. LIVER, GALLBLADDER, AND BILIARY TREE: The liver is normal in size, shape, and attenuation. No focal hepatic lesion or biliary ductal dilatation is present. The gallbladder is unremarkable with no evidence of radiopaque gallstones, gallbladder wall thickening, or obvious pericholecystic inflammatory changes. PANCREAS: There is diffuse fatty infiltration. No focal mass or enlargement is seen. There is no pancreatic ductal dilatation. No significant peripancreatic fat stranding or acute fluid collection is noted. SPLEEN: Unremarkable, with a longitudinal span in the coronal plane of 12.4 cm. ADRENAL GLANDS: Unremarkable. KIDNEYS AND URETERS: The kidneys are normal in size, shape, and attenuation. No hydronephrosis, hydroureter, or calculi seen. No perinephric stranding. BLADDER: Unremarkable. GASTROINTESTINAL TRACT: The small and large bowel are unremarkable. The appendix is unremarkable. ABDOMINAL WALL: There is a tiny fat-containing umbilical hernia. LYMPH NODES: Normal. VASCULAR: There is moderate aortoiliac atherosclerotic calcification. No abdominal aortic aneurysm is seen. PELVIC VISCERA: The prostate and seminal vesicles are unremarkable. OSSEOUS STRUCTURES: There is mild thoracolumbar spondylosis. No acute or aggressive osseous finding is noted. CT/CT abdomen pelvis wo IV con IMPRESSION: No significant abnormality. Fleischner guidelines were followed.
== END 2023-07-01 13:54 | disposition home or self-care (01) ==
LOC: HO.CT 13:53
PROVIDERS: PCP Nurse Practitioner Family; Visit Provider Nurse Practitioner Family
DX: R19.7 Diarrhea, unspecified (principal); R11.0 Nausea
CPT/HCPCS: 74176

== ENCOUNTER 2023-07-15 13:18 | Outpatient (REF) | payer OTHER, SELFPAY ==
[2023-07-15 16:25] LABS: Iron 77 mcg/dL (45-160); Percent Iron Saturation 35 % (15-50); Total Iron Binding Capacity 221 mcg/dL (228-428); Unsaturated Iron Binding 144 ug/dL
[2023-07-15 16:42] LABS: Ferritin 208 ng/mL (20-250)
[2023-07-15 16:56] LABS: Folate 2.7 ng/mL (> or = 4.0); Vitamin B12 483 pg/mL (200-900)
[2023-07-21 11:53] LABS: Hematocrit 37.9 % (38.5-50.0); Hemoglobin 13.2 g/dL (13.2-17.1); MCH 30.9 pg (27.0-33.0); MCV 88.8 fL (80.0-100.0); RBC 4.27 Million/uL (4.20-5.80); RDW 12.3 % (11.0-15.0)
== END 2023-07-15 13:19 | disposition home or self-care (01) ==
LOC: HO.HMGCLDS 13:18
PROVIDERS: PCP Nurse Practitioner Family; Visit Provider Nurse Practitioner Family
DX: D64.9 Anemia, unspecified (principal)
CPT/HCPCS: 36415; 82607; 82728; 82746; 83020; 83540; 85014; 85018; 85041

== ENCOUNTER 2023-08-02 08:53 | Outpatient (AMB) | payer OTHER, SELFPAY ==
--- NOTE | 2023-08-02 09:10 | A.OFFVIS_ITS ---
Intake Vital Signs 08/02/23 09:12 Height 5 ft 10 in Weight 205 lb 0.478 oz BMI 29.4 BP 107/75 Blood Pressure Location Lt brachial Position Sitting Pulse 105 H Intake Visit Reasons: Colonoscopy screening Intake Note: Genaro presents in the office as a Colonoscopy screening. CC: State she was sick for a few months and had E Coli - he has never had a colo in the past. He states that he is fine and no longer sick. Cdl Truck Driver Required: No Allergies No Known Allergies [No Known Allergies*] Allergy (Verified 08/02/23 09:12) Medication List - Last Reconciled 08/02/23 by Johana Galvan PA-C atorvastatin 80 mg PO BEDTIME buprenorphine-naloxone 12-3 mg 15 mg sublingual DAILY folic acid 0.4 mg PO DAILY ibuprofen 600 mg PO Q6-8H PRN ibuprofen 800 mg PO TID PRN losartan 25 mg PO DAILY metoprolol succinate ER 12.5 mg (1/2 x 25 mg) PO DAILY quetiapine 300 mg PO BEDTIME tizanidine 4 mg PO BEDTIME PRN 30 days HPI HPI Comments History of Present Illness Details A 48 y/o male referred for index screening colonoscopy-no family CRC He had ecoli back in March- had a terrible few months recovered- says he is feeling well- healthy Normal bowels Appetite good- starting to gain weight back- no sx CT/CT abdomen pelvis wo IV con IMPRESSION: No significant abnormality. Fleischner guidelines were followed. Seeing back pcp-in August- [facility] Medical History Full dentures Numbness and tingling in left hand Personal history of COVID-19 Depression Anxiety TMJ (dislocation of temporomandibular joint) Opioid abuse Back pain Hypertension Bipolar 1 disorder History of gynecomastia (~02/13/20) Surgical History Hx of hand surgery History of breast lump/mass excision History of vasectomy Family History Mother History of breast cancer Other Mental health disorder Substance use disorder Social History Housing: Apartment Are you a primary care team coordinator scheduler to a significant other at home: No Do you presently have visiting nurse or other home services: No Alcohol intake: former Patient Tobacco Use Status: Former Tobacco user Quit Date: 2015 Tobacco use type: Cigarette Years Smoked: quit 6 years ago e-Cigarette/Vaping Use: Currently Using Second Hand Smoke Exposure: Yes Substance Use Type: Opiates Advance Directives Date on File: 05/28/20 service: No Current occupational status: unemployed 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 Cognitive needs: No Hearing needs: No Vision needs: No Review of Systems Const All systems reviewed & are unremarkable except as noted in HPI and below Card Denies chest pain and Denies dyspnea Resp Denies dyspnea GI Denies abdominal pain, Denies bloating, Reports change in bowel habits, Denies heartburn, Denies diarrhea and Denies vomiting Physical Exam Vital Signs: Last Vital Signs Pulse 105 H 08/02/23 09:12 BP 107/75 08/02/23 09:12 BMI result Body Mass Index 29.4 Const General: cooperative, healthy appearing and comfortable Orientation/consciousness: patient oriented x3 Limitations: no limitations Eyes Sclerae: sclerae normal Resp Effort & Inspection: normal respiratory effort and able to speak in complete sentences Auscultation: clear to auscultation bilaterally, no rales, no rhonchi and no wheezes Cardio Rate: regular rate Rhythm: regular rhythm Heart sounds: S1 normal heart sound present and S2 normal heart sound present GI Palpation (GI): Soft to palpation and nontender Auscultation: normal bowel sounds Skin General skin exam: no rashes or lesions noted Neuro General: patient oriented x3 Extrem General: Yes full ROM Psych Appearance: grossly normal and well kempt Mental Status: mental status grossly normal Speech and movement: Normal speech and movement present and Clear speech present Affect: normal affect Attitude: cooperative Thought process: Normal thought process present Thought content: Normal thought content present Assessment & Plan Assessment & Plan (1) Screening for colon cancer: Comment: index screening colon Code(s): Z12.11 - Encounter for screening for malignant neoplasm of colon Plan Colonoscopy MG prep Patient Instructions: Index Colonoscopy MG prep, reviewed, lit given Call with questions Coding Level of Care Code New Pt Level 3 (04316) Diagnoses Screening for colon cancer Z12.11 Time Spent (min) 30
[2023-08-02 09:12] VITALS: BP 107/75; PULSE 105; BMI 29.4
== END 2023-08-02 09:45 | disposition home or self-care (01) ==
PROVIDERS: PCP Nurse Practitioner Family; Visit Provider Physician Assistant
DX: Z01.818 Encounter for other preprocedural examination (principal); Z12.11 Encounter for screening for malignant neoplasm of colon
CPT/HCPCS: 99203

== ENCOUNTER → 2023-08-02 08:53 | Outpatient (BNVA) | payer OTHER, SELFPAY | PROVIDERS: PCP Nurse Practitioner Family; Visit Provider Physician Assistant | DX: Z12.11 Encounter for screening for malignant neoplasm of colon (principal) | CPT/HCPCS: 99202 ==

== ENCOUNTER 2023-09-23 12:22 | Emergency (ER) | payer OTHER, SELFPAY ==
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
[2023-09-23 12:28] VITALS: BP 115/80; PULSE 93; RESP 15; TEMP 36.6; O2SAT 98; BMI 28.6
--- NOTE | 2023-09-23 12:29 | ED_ITS ---
HPI - General Adult General Chief complaint: Neck Pain/Injury Stated complaint: fall neck inj Time Seen by Provider: 09/23/23 13:26 Source: patient Mode of arrival: ambulatory Limitations: no limitations History of Present Illness HPI narrative: 48-year-old male with history of bursitis of the right hip, spondylolysis cervical spine, PTSD, known tachycardia, presents to ED for posterior neck pain for one week. patient states he lost footing down the stairs a week ago and fell directly on his neck on the edge of the stairs pain patient denies hitting head or loss of consciousness. Patient denies rolling down the stairs. Patient states since incident only posterior neck pain. Patient denies any abdominal pain, chest pain, shortness of breath, headache, dizziness, rectal bleeding, vomiting blood, bloody urine or any pain in extremities or abdomen. Patient denies any back pain Related Data Home Medications ?Medication ?Instructions ?Recorded ?Confirmed atorvastatin 80 mg tablet 80 mg PO BEDTIME 02/25/23 08/02/23 buprenorphine 12 mg-naloxone 3 mg 15 mg sublingual DAILY 08/02/23 08/02/23 sublingual film Previous Rx's ?Medication ?Instructions ?Recorded ibuprofen 600 mg tablet 600 mg PO Q6-8H PRN pain #20 tabs 02/03/23 ibuprofen 800 mg tablet 800 mg PO TID PRN pain #14 tabs 02/25/23 losartan 25 mg tablet 25 mg PO DAILY #90 tabs 03/31/23 folic acid 400 mcg tablet 0.4 mg PO DAILY #90 tabs 07/27/23 quetiapine 300 mg tablet 300 mg PO BEDTIME #30 tabs 08/29/23 tizanidine 4 mg tablet 4 mg PO BEDTIME PRN muscle 09/12/23 spasticity 30 days #30 tabs metoprolol succinate 25 mg 12.5 mg (1/2 x 25 mg) PO DAILY #45 09/14/23 tablet,extended release 24 hr tabs naproxen 500 mg tablet 500 mg PO BID PRN pain 7 days #14 09/23/23 tabs Allergies Allergy/AdvReac Type Severity Reaction Status Date / Time No Known Allergies Allergy Verified 09/23/23 12:30 [No Known Allergies*] Review of Systems Review of Systems: posterior neck pain Yes all other systems are reviewed and are negative PMFSH Past Medical History Medical History Full dentures Numbness and tingling in left hand Personal history of COVID-19 Depression Anxiety TMJ (dislocation of temporomandibular joint) Opioid abuse Back pain Hypertension Bipolar 1 disorder History of gynecomastia (~02/13/20) Surgical History Hx of hand surgery History of breast lump/mass excision History of vasectomy Family History Family History Mother History of breast cancer Other Mental health disorder Substance use disorder Social History Social History Housing: Apartment Are you a primary post acute care nurse to a significant other at home: No Do you presently have visiting nurse or other home services: No Alcohol intake: former Patient Tobacco Use Status: Former Tobacco user Quit Date: 2015 Tobacco use type: Cigarette Years Smoked: quit 6 years ago e-Cigarette/Vaping Use: Currently Using Second Hand Smoke Exposure: Yes Substance Use Type: Opiates Advance Directives: Yes Advance Directives on File: Yes Advance Directives Date on File: 05/28/20 service: No Current occupational status: unemployed 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 Cognitive needs: No Hearing needs: No Vision needs: No Physical Exam ED Vital Signs: Vital Signs - 24 hr 09/23/23 12:28 Temperature 98 F Pulse Rate 93 Respiratory Rate 15 Blood Pressure 115/80 Pulse Oximetry 98 Oxygen Delivery Method Room Air BMI result Body Mass Index 28.6 Const General: cooperative, healthy appearing, comfortable, no acute distress, well developed, alert, awake and Physically active Orientation/consciousness: oriented to person, oriented to place, oriented to time and patient oriented x3 HENMT Head: Yes normal to inspection, Yes No palpable skull fracture present, Yes normocephalic, Yes atraumatic and No abrasion Eyes General: appearance normal, both eyes and all related structures Neck Neck: Yes normal visual inspection, Yes full ROM, Yes no lymphadenopathy, Yes no meningeal signs, Yes trachea midline, Yes supple, No anterior neck swelling and Yes tender (posterior cervical) Chest Chest palpation & inspection: normal inspection of the chest and normal palpation of entire chest wall Resp Effort & Inspection: normal respiratory effort and able to speak in complete sentences Auscultation: clear to auscultation bilaterally Cardio Jugular venous distension: no JVD Heart sounds: S1 normal heart sound present and S2 normal heart sound present GI Inspection: Yes normal to inspection Palpation (GI): Soft to palpation, not firm, nontender, no guarding and not rigid General: No CVA tenderness and Yes no CVA tenderness Back/Spine/Pelvis Back: no CVA tenderness, No CVA tenderness and No back tenderness Skin General skin exam: no rashes or lesions noted, elasticity normal and turgor normal Neuro General: oriented to person, oriented to place, oriented to time, patient oriented x3, gait normal, tone normal, moves all extremities, Normal light touch and pain sensation, no meningeal signs, no focal motor deficits, CN's II-XI in tact bilaterally and normal sensation to monofilament Extrem General: Yes normal to inspection, Yes full ROM and Yes capillary refill normal Psych Appearance: grossly normal, well kempt and not disheveled Course Course Course Narrative: This is a rapid medical exam performed by William Angela NP: Additional HPI, ROS, PE not included below will be deferred to primary provider. Patient is a 48-year-old male presenting to the emergency department with complaint of right sided neck pain. Slipped on stairs one week ago and hit right side of neck on step. Denies head strike or loss of consciousness. No midline c-spine tenderness, strength 5/5 bilateral upper extremities, no focal deficits. Plan: CT C-spine Medical Decision Making Medical Decision Making MDM Narrative: 48-year-old male presents to ED for posterior neck pain after falling directly on the neck while losing fotting on his stairs. Patient only complains posterior neck pain. Patient placed in cervical collar. Patient ordered head CT scan and cervical spine CT scan. Patient states no other complaints. 3:16pm: Head CT scan came back normal negative for brain being a skull fracture. Cervical spine CT scan negative for fracture but does shows degenerative disc disease. Differential Diagnosis Differential Diagnoses: The differential diagnosis associated with the presentation includes ( Cervical spine fracture, cervical radiculopathy, brain bleed, skull fracture) Admission/Observation Consideration of admission/observation: Escalation of care including admission/observation considered Independent Interpretation I performed an independent interpretation of an: CT Scan Radiology Impression Discussion of test interpretation with radiology: I have reviewed the radiologist's reading. Independent Historian Clinical information obtained from an independent historian. History obtained from or confirmed by: Other ( patient) External Record Review External record reviewed: Other ( prior visits) Prescription Management I considered prescription management with: Pain Medication Discharge Plan Discharge Clinical Impression: Cervical radiculopathy, Head injury Patient Disposition: Home, Self-Care Instructions: Head Injury (ED), Cervical Radiculopathy (ED) Additional Instructions: your cervical spine CT scan came back negative for fracture but does shows arthritis of the cervical spine. Head CT scan came back normal. Recommend follow-up with primary care provider. Return to the ED for any dizziness, nausea, vomiting, headache, dizziness, or any other concerning symptoms Prescriptions: New naproxen 500 mg tablet 500 mg PO BID PRN (Reason: pain) 7 Days Qty: 14 0RF No Action losartan 25 mg tablet 25 mg PO DAILY Qty: 90 1RF folic acid 400 mcg tablet 0.4 mg PO DAILY Qty: 90 0RF quetiapine 300 mg tablet 300 mg PO BEDTIME Qty: 30 0RF tizanidine 4 mg tablet 4 mg PO BEDTIME PRN (Reason: muscle spasticity) 30 Days Qty: 30 2RF metoprolol succinate 25 mg tablet extended release 24 hr 12.5 mg PO DAILY Qty: 45 1RF Rx Instructions: Schedule next PCP appt for more refills ibuprofen 600 mg tablet 600 mg PO Q6-8H PRN (Reason: pain) Qty: 20 0RF ibuprofen 800 mg tablet 800 mg PO TID PRN (Reason: pain) Qty: 14 0RF atorvastatin 80 mg tablet 80 mg PO BEDTIME Rx Instructions: Schedule next PCP appt for more refills buprenorphine-naloxone 12-3 mg film 15 mg sublingual DAILY Stand Alone Forms: Work/School Release Interventions: ED Discharge Assessment Last Done: 09/23/23 15:24 Discharge Date/Time: 09/23/23 15:24 Print Language: Dutch
--- NOTE | 2023-09-23 13:34 | PC.NURSE ---
C collar placed per provider request
--- NOTE | 2023-09-23 14:32 | PC.NURSE ---
Per provider okay to remove c collar
[2023-09-23 15:24] VITALS: BP 115/80; PULSE 93; RESP 18; TEMP 36.6; O2SAT 98
== END 2023-09-23 15:24 | disposition home or self-care (01) ==
PROVIDERS: Emergency Provider Emergency Medicine; PCP Nurse Practitioner Family
DX: S09.90XA Unspecified injury of head, initial encounter (principal); M54.12 Radiculopathy, cervical region; I10 Essential (primary) hypertension; W10.9XXA Fall (on) (from) unspecified stairs and steps, initial encounter; Y93.9 Activity, unspecified; Y92.9 Unspecified place or not applicable; Y99.9 Unspecified external cause status
CPT/HCPCS: 70450; 72125; 99283; 99284

== ENCOUNTER 2023-09-29 08:04 | Outpatient (AMB) | payer OTHER, SELFPAY ==
[2023-09-29 08:32] VITALS: BP 115/78; PULSE 78; TEMP 36.3; O2SAT 98; BMI 29.8
--- NOTE | 2023-09-29 08:32 | AM.OFFWIN_ITS ---
Intake Vital Signs 09/29/23 08:32 Height 5 ft 11 in Weight 214 lb BMI 29.8 BP 115/78 Blood Pressure Location Lt brachial Position Sitting Pulse 78 Pulse Source Pulse Oximeter Temp 97.3 F Temp Source Temporal Artery Scan Pulse Oximetry (%) 98 Oxygen Delivery Method Room Air Intake Visit Reasons: EP right side neck pain 2 week injury Intake Note: pt is here today for rt side neck pain started 2 weeks ago Patient Tobacco Use Status: Former Tobacco user Quit Date: 2015 Allergies No Known Allergies [No Known Allergies*] Allergy (Verified 09/29/23 08:35) Do you need a note to return to daycare/school/sports/work: No HPI HPI Comments History of Present Illness Details 48 y/o male patient who presents to walk in clinic with c/o right sided neck pain x 2 weeks. Pt fell down 2 weeks ago from few steps and landed on his neck. He was evaluated and treated at [facility] 09/25/[address]-Scan head/neck with WNL. [facility] Medical History Full dentures Numbness and tingling in left hand Personal history of COVID-19 Depression Anxiety TMJ (dislocation of temporomandibular joint) Opioid abuse Back pain Hypertension Bipolar 1 disorder History of gynecomastia (~02/13/20) Surgical History Hx of hand surgery History of breast lump/mass excision History of vasectomy Family History Mother History of breast cancer Other Mental health disorder Substance use disorder Social History Housing: Apartment Are you a primary pet care assistant to a significant other at home: No Do you presently have visiting nurse or other home services: No Alcohol intake: former Patient Tobacco Use Status: Former Tobacco user Quit Date: 2015 Tobacco use type: Cigarette Years Smoked: quit 6 years ago e-Cigarette/Vaping Use: Currently Using Second Hand Smoke Exposure: Yes Substance Use Type: Opiates Advance Directives Date on File: 01/06/21 service: No Current occupational status: unemployed 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 Limited ROM due to pain. Neck: Yes normal visual inspection, Yes no lymphadenopathy and Yes trachea midline Neuro General: patient oriented x3, gait normal and moves all extremities Psych Speech and movement: Normal speech and movement present Assessment & Plan Assessment & Plan (1) Cervical arthritis: Code(s): M47.812 - Spondylosis without myelopathy or radiculopathy, cervical region Plan: - Pt already taking Tizanidine routinely. - Continue taking Naproxen as directed - Added Acetaminophen and Lidocaine patches for pain relief. Medications: New acetaminophen 1,000 mg (2 x 500 mg) PO Q6H PRN 30 caps 0RF pain M47.812 - Spondylosis without myelopathy or radiculopathy, cervical region lidocaine 5% leave on most painful area for up to 12 hrs 1 patch topical DAILY 30 ea 0RF M47.812 - Spondylosis without myelopathy or radiculopathy, cervical region Refilled tizanidine 4 mg PO BEDTIME PRN 30 tabs 2RF muscle spasticity 30 days Coding Level of Care Code Est Pt Level 3 (12068) Diagnoses Cervical arthritis M47.812 Time Spent (min) 15
== END 2023-09-29 09:05 | disposition home or self-care (01) ==
PROVIDERS: PCP Nurse Practitioner Family; Visit Provider Nurse Practitioner Family
DX: M47.812 Spondylosis without myelopathy or radiculopathy, cervical region (principal)
CPT/HCPCS: 99213

== ENCOUNTER 2023-11-16 08:54 | Day surgery (SDC) | payer OTHER, SELFPAY ==
[2023-11-14 16:30] VITALS: BMI 29.4
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
[2023-11-16 10:14] VITALS: BMI 29.6
[2023-11-16 10:21] VITALS: BP 113/71; PULSE 88; RESP 19; TEMP 36.1; O2SAT 99
[2023-11-16] MEDS: Lactated Ringers 1,000 ML 100 ML IVCONT (10:30)
--- NOTE | 2023-11-16 10:45 | MHC.SHP ---
Pre-Procedural Eval Section A - 24 Hr Update-Section A only Date of Service: 11/16/23 Section B - Complete if H&P > 30 days Chief Complaint: Encounter for screening for malignant neoplasm of Relevant Family History (Specify if Yes): No Relevant Social History: None Present Medications: see Short Stay Collaborative assessment Medical History: Significant History (Anemia Full dentures Numbness and tingling in left hand Personal history of COVID-19 Depression Anxiety TMJ (dislocation of temporomandibular joint) Opioid abuse Back pain Hypertension Bipolar 1 disorder History of gynecomastia (~02/13/20)) History of Previous Operations: Relevant previous surgery/procedure and date(s) (Hx of hand surgery History of breast lump/mass excision History of vasectomy) Allergies: Allergies Allergy/AdvReac Type Severity Reaction Status Date / Time No Known Allergies Allergy Verified 09/29/23 08:35 [No Known Allergies*] Review of Systems Sugical H&P ROS: Negative: Constitution, Cardiovascular, Respiratory, Neurological, Psychiatric, Hem-Onc, Allergic/Immunologic, Gastrointestinal, Genitourinary, Musculoskeletal, Integumentary, Endocrine and Eyes/Ears/Nose/Throat Exam Surgical H&P Exam: Normal: HEENT, Normal: Heart, Normal: Lungs, Normal: Extremities, Normal: Abdomen, Normal: Skin and Normal: Neurological Plan Diagnosis/Plan: Unchanged I have reviewed the history and physical and performed a pertinent physical examination on my patient. No changes have occurred unless specified. Time Spent With Patient Time: Total time managing care of this patient today ____ minutes.
--- NOTE | 2023-11-16 11:15 | P.OPN-COLO_ITS ---
Colonoscopy Operative Note Operative Note Date of Service: 11/16/23 Narrative: Operative Information Procedure Description: Colonoscopy Indication: screening Anesthesia: MAC COLONOSCOPY Instrument: Olympus variable stiffness pediatric scope 190L Colonoscopy Monitoring: Vital signs and clinical assessment, continuous EKG monitoring, Pulse oximetry, Carbon Dioxide monitoring and blood pressure monitoring were done throughout the procedure. Colon withdrawal time was 7 minutes. Procedure: The patient was placed in the left lateral decubitis position and pre-procedure medications were administered. After a digital rectal examination of the ano-rectum, the video colonoscope was inserted into the rectum and advanced through the colon to the cecum/TI. The colonoscope was slowly withdrawn in a retrograde panoramic fashion and the colon mucosa was carefully examined including a retroflexed view of the rectum. Findings and interventions are described below. Procedure Difficulty: moderate, pressure applied Findings: Terminal Ileum-normal Cecum:normal Ascending Colon: normal Transverse Colon -normal Descending Colon:normal Sigmoid Colon: normal Rectum: Retroflexion with small internal hemorrhoids seen, grade I Anorectum - normal Intervention: none Colon preparation: [place] Bowel Preparation Scale Right colon; 2 Transverse colon: 2 Left colon; 1 (0 = Unprepared colon segment with mucosa not seen due to solid stool that cannot be cleared. 1 = Portion of mucosa of the colon segment seen, but other areas of the colon segment not well seen due to staining, residual stool and/or opaque liquid. 2 = Minor amount of residual staining, small fragments of stool and/or opaque liquid, but mucosa of colon segment seen well. 3 = Entire mucosa of colon segment seen well with no residual staining, small fragments of stool or opaque liquid) Impression and Post Procedure Diagnosis: internal hemorrhoids Plan: High fiber diet leaflet Avoid straining at stool, epsom salts and sitz bath, anusol supps or cream Repeat Colonoscopy in 1 year due to fair/poor prep in parts of the left side or earlier if clinically indicated Above findings were reviewed with the patient and relevant handouts were provided if indicated.
[2023-11-16 11:39] VITALS: BP 100/57; PULSE 77; RESP 16; TEMP 36.1; O2SAT 97
[2023-11-16 11:54] VITALS: BP 110/77; PULSE 80; RESP 16; TEMP 36.4; O2SAT 99
== END 2023-11-16 12:57 | disposition home or self-care (01) ==
PROVIDERS: PCP Nurse Practitioner Family; Visit Provider Internal Medicine Gastroenterology
PROC: 0DJD8ZZ Inspection of Lower Intestinal Tract, Via Natural or Artificial Opening Endoscopic (ICD-10-PCS; CPT 45378; principal; 2023-11-16 11:10)
DX: Z12.11 Encounter for screening for malignant neoplasm of colon (principal); K64.0 First degree hemorrhoids; R20.0 Anesthesia of skin; F32.A Depression, unspecified; I10 Essential (primary) hypertension; F41.9 Anxiety disorder, unspecified; F11.10 Opioid abuse, uncomplicated; Z79.1 Long term (current) use of non-steroidal anti-inflammatories (NSAID); Z79.899 Other long term (current) drug therapy; Z86.16 Personal history of COVID-19; Z98.890 Other specified postprocedural states; Z87.891 Personal history of nicotine dependence; Z56.0 Unemployment, unspecified
CPT/HCPCS: G0105; J2704

== ENCOUNTER → 2023-11-16 08:54 | Outpatient (BNV) | payer OTHER, SELFPAY | PROVIDERS: PCP Nurse Practitioner Family; Visit Provider Internal Medicine Gastroenterology | DX: Z12.11 Encounter for screening for malignant neoplasm of colon (principal); K64.0 First degree hemorrhoids | CPT/HCPCS: G0121 ==

== ENCOUNTER 2023-12-09 09:21 | Outpatient (AMB) | payer OTHER, SELFPAY ==
[2023-12-09 09:49] VITALS: BP 110/70; PULSE 93; TEMP 36.6; O2SAT 98; BMI 27.0
--- NOTE | 2023-12-09 09:49 | MHC.OFFWIV ---
Intake Vital Signs 12/09/23 09:49 Height 5 ft 10 in Weight 188 lb BMI 27.0 BP 110/70 Blood Pressure Location Lt brachial Position Sitting Pulse 93 Pulse Source Pulse Oximeter Temp 97.8 F Temp Source Temporal Artery Scan Pulse Oximetry (%) 98 Oxygen Delivery Method Room Air Intake Visit Reasons: EP ?sinus infection Intake Note: pt here c/o ? sinus infection. Pressure, headache, Phlegm Patient Tobacco Use Status: Former Tobacco user Allergies No Known Allergies [No Known Allergies*] Allergy (Verified 12/09/23 09:49) Do you need a note to return to daycare/school/sports/work: No HPI HPI Comments History of Present Illness Details 48 y/o male patient who presents to walk in clinic with c/o nasal/sinus pressure. Reports blowing out yellow discharge from his nose and foul odor from mouth. He was recently seen and evaluated at [facility] ( 6 days ago) and diagnosed with COVID. Pt believes he has Bacterial sinusitis and asking for Antibiotics. [facility] Medical History (Updated 12/09/23 @ 10:17 by Mirtha Rodriguez NP) Anemia Full dentures Numbness and tingling in left hand Personal history of COVID-19 Depression Anxiety TMJ (dislocation of temporomandibular joint) Opioid abuse Back pain Hypertension Bipolar 1 disorder History of gynecomastia (~02/13/20) Surgical History Hx of hand surgery History of breast lump/mass excision History of vasectomy Family History Mother History of breast cancer Other Mental health disorder Substance use disorder Social History Housing: Apartment Are you a primary primary care physician to a significant other at home: No Do you presently have visiting nurse or other home services: No Alcohol intake: former Patient Tobacco Use Status: Former Tobacco user Tobacco use type: Cigarette Years Smoked: quit 6 years ago e-Cigarette/Vaping Use: Currently Using Second Hand Smoke Exposure: Yes Substance Use Type: Opiates Advance Directives Date on File: 05/28/20 service: No Current occupational status: unemployed 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 Cognitive needs: No Hearing needs: No Vision needs: No Review of Systems Const All systems reviewed & are unremarkable except as noted in HPI and below Physical Exam Vital Signs: Last Vital Signs Temp 97.8 F 12/09/23 09:49 Pulse 93 12/09/23 09:49 BP 110/70 12/09/23 09:49 Pulse Ox 98 12/09/23 09:49 Oxygen Delivery Method Room Air 12/09/23 09:49 BMI result Body Mass Index 27.0 Const General: comfortable and no acute distress Orientation/consciousness: patient oriented x3 HEENT Head: Yes normocephalic Ears: external ears normal and TM's normal bilaterally General nose exam: Normal nasal mucous membranes and turbinates present Face and sinus: Yes sinuses nontender Mouth: moist mucous membranes Throat: Yes posterior oropharynx normal Resp Effort & Inspection: normal respiratory effort and able to speak in complete sentences Auscultation: clear to auscultation bilaterally, no crackles, no rales, no rhonchi and no wheezes Cardio Heart sounds: S1 normal heart sound present and S2 normal heart sound present Neuro General: patient oriented x3, gait normal and moves all extremities Psych Speech and movement: Normal speech and movement present Assessment & Plan Assessment & Plan (1) URI (upper respiratory infection): Code(s): J06.9 - Acute upper respiratory infection, unspecified Qualifiers: URI type: unspecified viral URI Qualified Code(s): J06.9 - Acute upper respiratory infection, unspecified Plan DDx: URI vs Bacterial Sinusitis Ordered Amoxicillin despite the fact that the objective findings not consistent with Bacteria infection. I urged Pt that Antibiotics do not work of viruses and that symptoms might not get any better. Rest Warm fluids. Acetaminophen for pain relief. Medications: New amoxicillin 500 mg PO BID 14 caps 0RF 7 days J06.9 - Acute upper respiratory infection, unspecified Coding Level of Care Code Est Pt Level 3 (90884) Diagnoses Viral upper respiratory tract infection J06.9 URI type: unspecified viral URI Time Spent (min) 15
== END 2023-12-09 10:16 | disposition home or self-care (01) ==
PROVIDERS: PCP Nurse Practitioner Family; Visit Provider Nurse Practitioner Family
DX: J06.9 Acute upper respiratory infection, unspecified (principal)
CPT/HCPCS: 99213

== ENCOUNTER 2024-01-19 10:37 | Outpatient (AMB) | payer OTHER, SELFPAY ==
[2024-01-19 10:42] VITALS: BP 112/70; PULSE 92; O2SAT 98; BMI 26.8
--- NOTE | 2024-01-19 10:42 | MHC.PC.OV ---
Vital Signs 01/19/24 10:42 Height 5 ft 10 in Weight 187 lb BMI 26.8 BP 112/70 Blood Pressure Location Rt brachial Position Sitting Pulse 92 Pulse Source Pulse Oximeter Pulse Oximetry (%) 98 Intake Visit Reasons: Stomach issues Intake Note: pt is here for stomach issue follow up, patient had recent colonscopy Vehicle Care Specialist Required: No Accompanied by: Self / Same As Patient Allergies No Known Allergies [No Known Allergies*] Allergy (Verified 01/19/24 10:42) Medication List - Last Reconciled 01/19/24 by TONYA Maloney atorvastatin 80 mg PO BEDTIME buprenorphine-naloxone 12-3 mg 15 mg sublingual DAILY folic acid 0.4 mg PO DAILY ibuprofen 800 mg PO TID PRN losartan 25 mg PO DAILY metoprolol succinate ER 12.5 mg (1/2 x 25 mg) PO DAILY omeprazole 20 mg PO DAILY quetiapine 300 mg PO BEDTIME 90 days tizanidine 4 mg PO BEDTIME PRN 30 days Tobacco use date assessed: 06/02/23 Dental Screening Dental Screen Date: 06/02/23 HPI Stomach issues HPI Details Pt c/o nausea. He was treated for e coli in May and has had nausea since. Pt has tried OTC omeprazole which helps. Will send this. Pt is tolerating a diet. Denies fever, chills, abdominal pain, vomiting, and diarrhea. Dyslipidemia: On atorvastatin 80mg. Will order labs. Pt has a family hx of factor 5 leiden. Will order labs. [facility] Medical History Anemia Full dentures Numbness and tingling in left hand Personal history of COVID-19 Depression Anxiety TMJ (dislocation of temporomandibular joint) Opioid abuse Back pain Hypertension Bipolar 1 disorder History of gynecomastia (~02/13/20) Surgical History Hx of hand surgery History of breast lump/mass excision History of vasectomy Family History Mother History of breast cancer Other Mental health disorder Substance use disorder Social History Housing: Apartment Are you a primary intensive care specialist to a significant other at home: No Do you presently have visiting nurse or other home services: No Alcohol intake: former Patient Tobacco Use Status: Former Tobacco user Tobacco use type: Cigarette Years Smoked: quit 6 years ago e-Cigarette/Vaping Use: Currently Using Second Hand Smoke Exposure: Yes Substance Use Type: Opiates Advance Directives Date on File: 05/28/20 service: No Current occupational status: unemployed 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 1. Little interest or pleasure in doing things: nearly every day 2. Feeling down, depressed, or hopeless: not at all 3. Trouble falling or staying asleep, or sleeping too much: not at all 4. Feeling tired or having little energy: several days 5. Poor appetite or overeating: nearly every day 6. Feeling bad about yourself - or that you are a failure or have let yourself or your family down: not at all 7. Trouble concentrating on things, such as reading the newspaper or watching television: not at all 8. Moving or speaking so slowly that other people could have noticed. Or the opposite - being so fidgety or restless that you have been moving around a lot more than usual: not at all 9. Thoughts that you would be better off or of hurting yourself in some way: not at all Total score: 7 Depression Screening Interpretation: Negative Depression Screening Done: Yes 72211 - PHQ-9 Billing: Yes Source: Developed by Drs. Shaq Metzger, Nory Olmedo, Rodger Tran and colleagues, with an educational lien from [employer]. Thrive Questionnaire Date Thrive assessed: 01/19/24 I am a: Patient What is your living situation today?: I have a steady place to live Within the past 12 months, did the food you bought not last and you didn't have the money to get more?: Sometimes True Within the past 12 months, did you worry whether your food would run out before you got money to buy more?: Sometimes True Do you have trouble paying for medicines?: No Do you have trouble getting transportation to medical appointments?: No Do you have trouble paying your heating and electricity bill?: No Do you have trouble taking care of your child, family member or friend?: No Do you have trouble with day-to-day activities such as bathing, preparing meals, shopping, managing finances, etc.?: No Are you currently unemployed and looking for a job?: Yes Are you interested in more education?: No Please select the resources that you would like help with: None Currently or been in a relationship where the following occur: No concerns reported THRIVE Score: 2 AUDIT C Alcohol Use Questionnaire (AUDIT-C) 1. How often do you have a drink containing alcohol?: Never 3. How often do you have six or more drinks on one occasion?: Never Total Score: 0 Score Reviewed/Action Taken: Yes NABIL-7 AMB Questionnaire NABIL-7 Date NABIL - 7 assessed: 01/19/24 Feeling nervous, anxious, or on edge: 0 = Not at all Not being able to stop or control worryin = Not at all Worrying too much about different things: 0 = Not at all Trouble relaxin = Not at all Being so restless that it is hard to sit still: 0 = Not at all Becoming easily annoyed or irritable: 0 = Not at all Feeling afraid as if something awful might happen: 0 = Not at all Total NABIL-7 score (0-4 normal; 5-9 mild; 10-14 moderate; 15-21 severe): 0 Source: Developed by Drs. Shaq Metzger, Nory Olmedo, Rodger Tran and colleagues, with an educational lien from [employer]. NABIL-7 Assessment Billing NABIL-7 Assessment Tool: NABIL-7 Assessment 23958 Review of Systems Const Reports as per HPI Physical exam (Primary Care) Vital Signs: Last Vital Signs Pulse 92 01/19/24 10:42 BP 112/70 01/19/24 10:42 Pulse Ox 98 01/19/24 10:42 BMI result Body Mass Index 26.8 Tobacco/Smoking Status: Tobacco use Status Tobacco use date assessed 06/02/23 01/19/24 10:45 Patient Tobacco Use Status Former Tobacco user 01/19/24 10:45 Tobacco use type Cigarette 01/19/24 10:45 e-Cigarette/Vaping Use Currently Using 01/19/24 10:45 PHQ-9: PHQ-9 Score PHQ-9: Total score 7 01/19/24 10:59 Depression Screening Interpretation: Negative Thrive Assessment: Date of Thrive Assessment Date Thrive assessed 01/19/24 01/19/24 10:45 Currently or been in a relationship where the following occur: No concerns reported Const General: cooperative Orientation/consciousness: patient oriented x3 Resp Effort & Inspection: normal respiratory effort Auscultation: clear to auscultation bilaterally Cardio Rate: regular rate Rhythm: regular rhythm Heart sounds: S1 normal heart sound present and S2 normal heart sound present Neuro General: patient oriented x3 Psych Appearance: grossly normal Mental Status: mental status grossly normal Speech and movement: Normal speech and movement present Affect: normal affect Attitude: cooperative Thought process: Normal thought process present Thought content: Normal thought content present Insight: Good insight present (Psych) Judgement: Good judgement present (Psych) Assessment and Plan Assessment & Plan (1) Dyslipidemia: Code(s): E78.5 - Hyperlipidemia, unspecified Plan: Labs ordered (2) Diarrhea: Code(s): R19.7 - Diarrhea, unspecified Plan: Doing well (3) Nausea: Code(s): R11.0 - Nausea Plan: Omeprazole sent (4) Family history of factor V Leiden mutation: Code(s): Z83.2 - Family history of diseases of the blood and blood-forming organs and certain disorders involving the immune mechanism Plan: Labs ordered Plan The patient agreed to the use of a medical support assistant for this encounter. Scribed for SHARON Saleem by Kaylie Clemons medical support assistant, on 01/19/2024 at 11:00 EST. Orders: Orders Complete Blood Count Auto Diff Today E78.5 - Hyperlipidemia, unspecified, R19.7 - Diarrhea, unspecified TSH reflex Free T4 Today E78.5 - Hyperlipidemia, unspecified, R19.7 - Diarrhea, unspecified Factor V Leiden Today Z83.2 - Family history of diseases of the blood and blood-forming organs and certain disorders involving the immune mechanism Comprehensive [place]. Panel Fast Today E78.5 - Hyperlipidemia, unspecified, R19.7 - Diarrhea, unspecified UA CC w/rflx Micro + Cult Today E78.5 - Hyperlipidemia, unspecified, R19.7 - Diarrhea, unspecified Lipid Panel Today E78.5 - Hyperlipidemia, unspecified, R19.7 - Diarrhea, unspecified Medications: New omeprazole 20 mg PO DAILY 90 caps 0RF Coding Level of Care Code Est Pt Level 3 (87152) Diagnoses Dyslipidemia E78.5 Diarrhea R19.7 Nausea R11.0 Family history of factor V Leiden mutation Z83.2 Additional Codes NABIL-7 Assessment Billing - NABIL-7 Assessment Tool: NABIL-7 Assessment [id number] ([id number])
== END 2024-01-19 13:19 | disposition home or self-care (01) ==
PROVIDERS: PCP Nurse Practitioner Family; Visit Provider Nurse Practitioner Family
DX: E78.5 Hyperlipidemia, unspecified (principal); R19.7 Diarrhea, unspecified; R11.0 Nausea; Z83.2 Family history of diseases of the blood and blood-forming organs and certain disorders involving the immune mechanism
CPT/HCPCS: 99213

== ENCOUNTER 2024-01-25 08:32 | Outpatient (REF) | payer OTHER, SELFPAY ==
[2024-01-25 10:01] LABS: MANUAL DIFF FLAG NO
[2024-01-25 10:16] LABS: Basophils Absolute Auto 0.1 X10*3/uL (0.0-0.2); Basophils Percent Auto 1.1 % (0-2); Eosinophils Absolute Auto 0.2 X10*3/uL (0.0-0.4); Eosinophils Percent Auto 4.4 % (0-4); Hematocrit 34.9 % (42.0-52.0); Imm Gran Abs Auto 0.03 X10*3/uL (0.00-0.03); Imm Gran Pct Auto 0.6 % (0.0-0.4); Lymphocytes Absolute Auto 2.2 X10*3/uL (1.2-4.9); Lymphocytes Percent Auto 42.7 % (20-40); Mean Corpuscular HGB Conc 34.4 g/dl (31.0-36.0); Mean Corpuscular Hemoglobin 30.5 pg (27.0-33.0); Mean Corpuscular Volume 88.6 fL (80.0-98.0); Mean Platelet Volume 10.2 fL (9.4-12.4); Monocytes Absolute Auto 0.3 X10*3/uL (0.1-1.2); Monocytes Percent Auto 5.7 % (2-11); Neutrophils Absolute Auto 2.4 x10*3/uL (2.0-8.3); Neutrophils Percent Auto 45.5 % (45-73); Platelet Count 202 X10*3/uL (160-400); Red Blood Count 3.94 X10*6/uL (4.60-5.80); Red Cell Distribution Width 12.3 % (11.0-16.0); White Blood Count 5.2 X10*3/uL (4.8-10.8)
[2024-01-25 10:40] LABS: Alanine Aminotransferase 16 U/L (0-40); Albumin Level 4.2 g/dL (3.5-5.0); Alkaline Phosphatase 34 U/L (39-117); Anion Gap 13 (12-20); Aspartate Amino Transferase 12 U/L (5-37); Bilirubin Total 0.6 mg/dL (0.0-1.0); Blood Urea Nitrogen 7 mg/dL (9-16); Calcium 9.9 mg/dL (8.4-10.2); Carbon Dioxide 29 mmol/L (22-29); Chloride 105 mmol/L (96-108); Cholesterol 173 mg/dL (<200); Estimated Glomerular Filt Rate > 60; Glucose Fasting 113 mg/dL (60-99); HDL Cholesterol 43 mg/dL (>40); LDL Cholesterol Calculated 122 mg/dL (<100); Potassium 4.5 mmol/L (3.3-5.1); Sodium 142 mmol/L (135-145); TSH reflex Free T4 2.48 uIU/mL (0.32-4.0); Total Protein 6.6 g/dL (6.5-8.0); Triglycerides 44 mg/dL (<150)
[2024-01-25 13:13] LABS: Appearance Urine Clear; Color Urine Yellow; Glucose Urine UA Negative (Negative); Leukocyte Esterase Urine Negative (Negative); Nitrite Urine Negative (Negative); Urine Blood Negative (Negative); Urine Ketones Negative (Negative); Urine Protein Negative (Neg-Trace)
[2024-02-02 20:34] LABS: Factor V Leiden POSITIVE
== END 2024-01-25 08:33 | disposition home or self-care (01) ==
LOC: HO.HMGCLDS 08:32
PROVIDERS: PCP Nurse Practitioner Family; Visit Provider Nurse Practitioner Family
DX: E78.5 Hyperlipidemia, unspecified (principal); Z83.2 Family history of diseases of the blood and blood-forming organs and certain disorders involving the immune mechanism; R19.7 Diarrhea, unspecified
CPT/HCPCS: 36415; 80053; 80061; 81003; 81241; 84443; 85025

== ENCOUNTER → 2024-03-14 14:38 | Outpatient (BNV) | payer OTHER, SELFPAY | PROVIDERS: PCP Nurse Practitioner Family; Referring Provider Nurse Practitioner Family; Visit Provider Internal Medicine | DX: D64.9 Anemia, unspecified (principal) | CPT/HCPCS: 99204; G2211 ==

== ENCOUNTER 2024-05-30 10:22 | Outpatient (AMB) | payer OTHER, SELFPAY ==
--- NOTE | 2024-05-30 10:28 | MHC.OFFWIV ---
Intake Vital Signs 05/30/24 10:30 Weight 212 lb BP 116/70 Blood Pressure Location Lt brachial Position Sitting Pulse 78 Pulse Source Pulse Oximeter Temp 98 F Temp Source Oral Pulse Oximetry (%) 98 Oxygen Delivery Method Room Air Intake Visit Reasons: EP productive cough 3 weeks, sob Intake Note: Patient here for SOB, cough, fatigue, chills which has been present for abpout 3 weeks now. Patient Tobacco Use Status: Former Tobacco user Allergies No Known Allergies [No Known Allergies*] Allergy (Verified 05/30/24 10:31) Do you need a note to return to daycare/school/sports/work: No HPI HPI Comments History of Present Illness Details Patient is a 49 yo male c/o walking pneumonia . He has been sick almost 3 weeks but feels more SOB the last few days. Has yellow mucus, is coughing. Sinus pain has resovled. Covid x2 negative, last test 3 days ago. Denies fevers but feels hot then cold. Has sick contacts at home with different symptoms. Denies hx of asthma or COPD. [facility] Medical History (Updated 05/30/24 @ 11:05 by Paulina Herrera PA-C) Anemia Full dentures Numbness and tingling in left hand Personal history of COVID-19 Depression Anxiety TMJ (dislocation of temporomandibular joint) Opioid abuse Back pain Hypertension Bipolar 1 disorder History of gynecomastia (~02/13/20) Surgical History Hx of colonoscopy Hx of hand surgery History of breast lump/mass excision History of vasectomy Family History (Reviewed 01/19/24 @ 12:11 by Jorge Solis, [facility]) Mother History of breast cancer Other Mental health disorder Substance use disorder Social History Household Members: None Housing: Apartment Are you a primary care consultant to a significant other at home: No Do you presently have visiting nurse or other home services: No Alcohol intake: former Patient Tobacco Use Status: Former Tobacco user Tobacco use type: Cigarette Years Smoked: quit 6 years ago e-Cigarette/Vaping Use: Currently Using Second Hand Smoke Exposure: Yes Substance Use Type: Opiates Advance Directives Date on File: 01/06/21 Current occupational status: unemployed 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 Gender identity: Male Cognitive needs: No Hearing needs: No Vision needs: No Review of Systems Const All systems reviewed & are unremarkable except as noted in HPI and below Physical Exam Vital Signs: Last Vital Signs Temp 98 F 05/30/24 10:30 Pulse 78 05/30/24 10:30 BP 116/70 05/30/24 10:30 Pulse Ox 98 05/30/24 10:30 Oxygen Delivery Method Room Air 05/30/24 10:30 Const General: cooperative, healthy appearing, comfortable and no acute distress Orientation/consciousness: patient oriented x3 Limitations: no limitations HEENT Head: Yes normal to inspection Ears: hearing grossly normal bilaterally, external ears normal and unable to visualize TM (Cerumen) bilaterally General nose exam: Normal external nose present, Normal nares present and No nasal discharge present Face and sinus: Yes normal facial exam and Yes sinuses nontender Mouth: Normal oral and palatal mucosa present and moist mucous membranes Throat: Yes tonsils normal, Yes uvula midline and Yes posterior oropharynx abnormal (Erythema) Eyes General: appearance normal, both eyes and all related structures Neck Neck: Yes normal visual inspection Resp Effort & Inspection: normal respiratory effort, able to speak in complete sentences, Actively coughing, no respiratory distress, not tachypneic, no tripod positioning and no use of accessory muscles Auscultation: clear to auscultation bilaterally Cardio Rate: regular rate Rhythm: regular rhythm Heart sounds: normal S1 and S2 Skin General skin exam: no rashes or lesions noted Neuro General: patient oriented x3 Extrem General: Yes normal to inspection and Yes no clubbing, cyanosis or edema Assessment & Plan Assessment & Plan (1) Atypical pneumonia: Code(s): J18.9 - Pneumonia, unspecified organism Plan: Vital signs are stable, patient is well-appearing and physical exam was unremarkable. We will treat as presumptive atypical pneumonia, patient can not have azithromycin due to quetiapine use. We will prescribe doxycycline. Medications: New doxycycline hyclate 100 mg PO BID 10 tabs 0RF Coding Level of Care Code Est Pt Level 3 (41325) Diagnoses Atypical pneumonia J18.9
[2024-05-30 10:30] VITALS: BP 116/70; PULSE 78; TEMP 36.6; O2SAT 98
== END 2024-05-30 11:04 | disposition home or self-care (01) ==
PROVIDERS: PCP Nurse Practitioner Family; Visit Provider Physician Assistant
DX: J18.9 Pneumonia, unspecified organism (principal)

== ENCOUNTER → 2024-05-30 10:22 | Outpatient (BNVA) | payer OTHER, SELFPAY | PROVIDERS: PCP Nurse Practitioner Family; Visit Provider Physician Assistant | DX: J18.9 Pneumonia, unspecified organism (principal) | CPT/HCPCS: 99212 ==

== ENCOUNTER 2024-06-18 10:42 | Outpatient (AMB) | payer OTHER, SELFPAY ==
--- NOTE | 2024-06-18 10:50 | MHC.PC.OV ---
Vital Signs 06/18/24 10:51 Height 5 ft 11 in Weight 211 lb 4 oz BMI 29.5 BP 118/78 Blood Pressure Location Lt brachial Position Sitting Pulse 78 Pulse Source Pulse Oximeter Temp 98.5 F Temp Source Oral Pulse Oximetry (%) 97 Oxygen Delivery Method Room Air Intake Visit Reasons: PE Intake Note: Pt is here today for his annual physical. Allergies No Known Allergies [No Known Allergies*] Allergy (Verified 06/18/24 10:53) Medication List - Last Reconciled 06/18/24 by RAJESH MaloneyP- buprenorphine-naloxone 12-3 mg 15 mg sublingual DAILY clotrimazole-betamethasone 1-0.05 % 1 appl topical BID 2 weeks folic acid 0.4 mg PO DAILY ibuprofen 800 mg PO TID PRN losartan 25 mg PO DAILY metoprolol succinate ER 12.5 mg (1/2 x 25 mg) PO DAILY omeprazole 20 mg PO DAILY quetiapine 300 mg PO BEDTIME 90 days tizanidine 4 mg PO BEDTIME PRN 30 days Tobacco use date assessed: 06/18/24 Dental Screening Dental Screen Date: 06/18/24 Did you have a dental visit in the last 12 months?: No Did you have a dental problem in the last 6 months where you did not have access to dental care?: No Was dental information given to patient?: Patient has dentist HPI PE HPI Details History of Present Illness The patient is a 49-year-old male presenting with a focus on tenderness in his upper cleft region. He notes some degree of erythema localized to this area, with the tenderness having been present for an unspecified duration. He denies any recent trauma to the area. While there is no report of drainage or significant swelling, the area appears irritated and possibly of fungal etiology. He does not report any associated systemic symptoms such as fever or chills. This incident is addressed during his routine physical examination, alongside his request for a full check-up. The patient?s colonoscopy is up-to-date, indicating adherence to routine health screenings. Health Maintenance - Colonoscopy is current Social History Review of Systems - General: Denies fever or chills. - Respiratory: Denies chest pain and shortness of breath. - Gastrointestinal: Denies constipation, diarrhea, blood in stool - Genitourinary: Denies urinary problems. - Psychiatric: Denies suicidal and homicidal ideation. Physical Exam General: Cooperative, healthy appearing, comfortable, no acute distress and well developed Orientation: Patient oriented x3 Limitations: No limitations Head: Normal to inspection Ears: Hearing grossly normal bilaterally, cerumen noted bilaterally, unable to see TMs. after ear lavage, TMs easily seen Nose: Normal external nose present Face and sinus: Normal facial exam, some tenderness to nasal cleft Eyes: Appearance normal, both eyes and all related structures Neck: Normal visual inspection and Yes full ROM Respiratory: Normal respiratory effort and able to speak in complete sentences. Clear to auscultation bilaterally Cardiovascular: Regular rate and rhythm. Normal S1 and S2 GI: Normal to inspection. Soft to palpation and nontender Skin: Erythema noted in the upper sanchez cleft, appears more irritated/fungal, macular erythema Neuro: Patient oriented x3 Extremities: Normal to inspection Results Plan - Obtain an X-ray of the coccyx region to further evaluate pain. - Prescribe a topical antifungal cream for the erythematous macular area in the nasal cleft. - Consider cerumen removal to improve visibility of tympanic membranes if clinically indicated. Patient was informed and verbally consented to the use of an ambient scribe for clinic note documentation during this visit. Discussion Notes I discussed with the patient the potential fungal nature of the macular erythema at the nasal cleft and recommended the application of a topical antifungal cream. Additionally, I explained the rationale for ordering an X-ray of the coccyx region to assess any underlying issues contributing to the tenderness, although no overt signs of a pilonidal cyst were observed. I advised him to seek follow-up care if symptoms persist or worsen. The patient was informed of the importance of continuing routine screenings, as evidenced by his up-to-date colonoscopy, and the potential need for cerumen removal to assess ear health fully. Patient Instructions - Apply the prescribed topical antifungal cream as directed. - Complete the X-ray of the coccyx region as scheduled. - Return for follow-up if symptoms persist or worsen. - Maintain routine health screenings as advised. [facility] Medical History (Updated 06/18/24 @ 11:30 by Jorge Solis SUPERVISOR [employer]-) Anemia Full dentures Numbness and tingling in left hand Personal history of COVID-19 Depression Anxiety TMJ (dislocation of temporomandibular joint) Opioid abuse Back pain Hypertension Bipolar 1 disorder History of gynecomastia (~02/13/20) Surgical History Hx of colonoscopy Hx of hand surgery History of breast lump/mass excision History of vasectomy Family History Mother History of breast cancer Other Mental health disorder Substance use disorder Social History Household Members: None Housing: Apartment Are you a primary home day care provider to a significant other at home: No Do you presently have visiting nurse or other home services: No Alcohol intake: former Patient Tobacco Use Status: Former Tobacco user Tobacco use type: Cigarette Years Smoked: quit 6 years ago e-Cigarette/Vaping Use: Currently Using Second Hand Smoke Exposure: Yes Substance Use Type: Opiates Advance Directives Date on File: 05/28/20 Current occupational status: unemployed 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 1. Little interest or pleasure in doing things: not at all 2. Feeling down, depressed, or hopeless: not at all 3. Trouble falling or staying asleep, or sleeping too much: not at all 4. Feeling tired or having little energy: several days 5. Poor appetite or overeating: several days 6. Feeling bad about yourself - or that you are a failure or have let yourself or your family down: not at all 7. Trouble concentrating on things, such as reading the newspaper or watching television: not at all 8. Moving or speaking so slowly that other people could have noticed. Or the opposite - being so fidgety or restless that you have been moving around a lot more than usual: not at all 9. Thoughts that you would be better off or of hurting yourself in some way: not at all Total score: 2 Depression Screening Interpretation: Negative Depression Screening Done: Yes 77533 - PHQ-9 Billing: Yes Source: Developed by Drs. Shaq Metzger, Nory Olmedo, Rodger Tran and colleagues, with an educational lien from [employer]. Thrive Questionnaire Date Thrive assessed: 06/18/24 I am a: Patient What is your living situation today?: I have a steady place to live Within the past 12 months, did the food you bought not last and you didn't have the money to get more?: Sometimes True Within the past 12 months, did you worry whether your food would run out before you got money to buy more?: Sometimes True Do you have trouble paying for medicines?: No Do you have trouble getting transportation to medical appointments?: No Do you have trouble paying your heating and electricity bill?: Yes Do you have trouble taking care of your child, family member or friend?: No Do you have trouble with day-to-day activities such as bathing, preparing meals, shopping, managing finances, etc.?: No Are you currently unemployed and looking for a job?: Yes Are you interested in more education?: No Please select the resources that you would like help with: Housing/Care Home Currently or been in a relationship where the following occur: No concerns reported THRIVE Score: 3 AUDIT C Alcohol Use Questionnaire (AUDIT-C) 1. How often do you have a drink containing alcohol?: Never 3. How often do you have six or more drinks on one occasion?: Never Total Score: 0 Score Reviewed/Action Taken: Yes NABIL-7 AMB Questionnaire NABIL-7 Date NABIL - 7 assessed: 06/18/24 Feeling nervous, anxious, or on edge: 0 = Not at all Not being able to stop or control worryin = Not at all Worrying too much about different things: 0 = Not at all Trouble relaxin = Not at all Being so restless that it is hard to sit still: 0 = Not at all Becoming easily annoyed or irritable: 1 = Several days Feeling afraid as if something awful might happen: 0 = Not at all Total NABIL-7 score (0-4 normal; 5-9 mild; 10-14 moderate; 15-21 severe): 1 Source: Developed by Drs. Shaq Metzger, Nory Olmedo, Rodger Tran and colleagues, with an educational lien from [employer]. NABIL-7 Assessment Billing NABIL-7 Assessment Tool: NABIL-7 Assessment 27517 Physical exam (Primary Care) Vital Signs: Last Vital Signs Temp 98.5 F 06/18/24 10:51 Pulse 78 06/18/24 10:51 BP 118/78 06/18/24 10:51 Pulse Ox 97 06/18/24 10:51 Oxygen Delivery Method Room Air 06/18/24 10:51 BMI result Body Mass Index 29.5 Tobacco/Smoking Status: Tobacco use Status Tobacco use date assessed 06/18/24 06/18/24 10:54 Patient Tobacco Use Status Former Tobacco user 06/18/24 10:54 Tobacco use type Cigarette 06/18/24 10:54 e-Cigarette/Vaping Use Currently Using 06/18/24 10:54 PHQ-9: PHQ-9 Score PHQ-9: Total score 2 06/18/24 10:54 Depression Screening Interpretation: Negative Thrive Assessment: Date of Thrive Assessment Date Thrive assessed 06/18/24 06/18/24 10:54 Currently or been in a relationship where the following occur: No concerns reported Office Procedures Cerumen Removal From which ear canal was the cerumen removed: bilateral Removal: irrigation Notes: patient tolerated procedure well, no complications and ear canal clear [id number] Irrigation/Lavage Coding Level of Care Code Est Pt Prev Care 40-64y(52176) Diagnoses Physical exam Z00.00 Coccygeal pain M53.3 Screening for prostate cancer Z12.5 Dermatitis L30.9 Cerumen debris on tympanic membrane of both ears H61.23 CPT Codes Office Procedure - CPT: 36036-Mqk Irrigation/Lavage ([id number]) Additional Codes NABIL-7 Assessment Billing - NABIL-7 Assessment Tool: NABIL-7 Assessment 42317 ([id number]) PHQ-9 - 23856 - PHQ-9 Billing: Yes ([id number]) Assessment & Plan Assessment & Plan (1) Physical exam: Code(s): Z00.00 - Encounter for general adult medical examination without abnormal findings Category: Medical (2) Coccygeal pain: Code(s): M53.3 - Sacrococcygeal disorders, not elsewhere classified Category: Medical (3) Screening for prostate cancer: Code(s): Z12.5 - Encounter for screening for malignant neoplasm of prostate Category: Medical (4) Dermatitis: Code(s): L30.9 - Dermatitis, unspecified Category: Medical (5) Cerumen debris on tympanic membrane of both ears: Code(s): H61.23 - Impacted cerumen, bilateral Category: Medical Plan . Orders: Orders Complete Blood Count Auto Diff Today Z00.00 - Encounter for general adult medical examination without abnormal findings UA CC w/rflx Micro + Cult Today Z00.00 - Encounter for general adult medical examination without abnormal findings XR sacrum coccyx min 2V Today M53.3 - Sacrococcygeal disorders, not elsewhere classified Comprehensive [place]. Panel Fast Today Z00.00 - Encounter for general adult medical examination without abnormal findings TSH reflex Free T4 Today Z00.00 - Encounter for general adult medical examination without abnormal findings Lipid Panel Today Z00.00 - Encounter for general adult medical examination without abnormal findings Prostate Specific Antigen Scr Today Z12.5 - Encounter for screening for malignant neoplasm of prostate Medications: New clotrimazole-betamethasone 1-0.05 % 1 appl topical BID 2 weeks 45 grams 0RF
[2024-06-18 10:51] VITALS: BP 118/78; PULSE 78; TEMP 36.9; O2SAT 97; BMI 29.5
== END 2024-06-18 12:10 | disposition home or self-care (01) ==
PROVIDERS: PCP Nurse Practitioner Family; Visit Provider Nurse Practitioner Family
DX: Z00.00 Encounter for general adult medical examination without abnormal findings (principal); M53.3 Sacrococcygeal disorders, not elsewhere classified; Z12.5 Encounter for screening for malignant neoplasm of prostate; L30.9 Dermatitis, unspecified; H61.23 Impacted cerumen, bilateral

== ENCOUNTER → 2024-06-18 10:42 | Outpatient (BNVA) | payer OTHER, SELFPAY | PROVIDERS: PCP Nurse Practitioner Family; Visit Provider Nurse Practitioner Family | DX: Z00.01 Encounter for general adult medical examination with abnormal findings (principal); H61.23 Impacted cerumen, bilateral; M53.3 Sacrococcygeal disorders, not elsewhere classified; L30.9 Dermatitis, unspecified | CPT/HCPCS: 69209; 96127; 99396 ==

== ENCOUNTER 2024-11-13 11:03 | Emergency (ER) | payer OTHER, SELFPAY ==
[2024-11-13 11:32] VITALS: BP 133/88; PULSE 87; RESP 16; TEMP 36.1; O2SAT 98; BMI 29.5
--- NOTE | 2024-11-13 11:32 | ED_ITS ---
HPI - Neck Pain/Injury General Chief Complaint: Neck Pain/Injury Stated Complaint: neck pain rad down arm Source: patient Mode of arrival: ambulatory Limitations: no limitations History of Present Illness ED Provider: Misty Feng PA-C HPI Narrative: Patient with past medical history significant for spondylolysis of the cervical spine and PTSD reports to the emergency department today for evaluation of neck pain with right arm paresthesias has been happening for at least 8-9 months now. It is most prominent when he goes to sleep at night and he wakes up in the morning. Only takes a few minutes for it to go away. He reports he tosses and turns all over the place no specific position. He is denying any process steward strength weakness and no falls or trauma otherwise. Patient recalls having an issue similar to this several years ago in the past and did seek medical attention for he can not recall whether or not he did physical therapy. Patient does do a lot of repetitive lifting twisting and above head movement but denies any known trauma. He is intermittently done Tylenol but has not made a significant difference he has noticed heat does help. Patient is right-hand dominant. He has not seen an orthopedist. Patient is requesting medicine to help relieve his symptoms. Prior ED note reviewed from a year ago on 09/23/2023 at that time he was also diagnosed with cervical radiculopathy. At that time he fell down the stairs and he had a CT spine of the neck along with head CT. Cervical spine CT showed arthritis but no other significant changes and he had a normal CT scan of the head. He did not follow up with orthopedist following this. Related Data Home Medications ?Medication ?Instructions ?Recorded ?Confirmed buprenorphine 12 mg-naloxone 3 mg 15 mg sublingual BETHANY LY 08/02/23 06/18/24 sublingual film Previous Rx's ?Medication ?Instructions ?Recorded ibuprofen 800 mg tablet 800 mg PO TID PRN pain #14 t abs 02/25/23 clotrimazole-betamethasone 1 1 appl topical BID 2 week s #45 06/18/24 %-0.05 % topical cream grams omeprazole 20 mg capsule,delayed 20 mg PO DAILY #90 ca ps 07/18/24 release metoprolol succinate 25 mg 12.5 mg (1/2 x 25 mg) PO DA ALEJANDRO #45 08/10/24 tablet,extended release 24 hr tabs folic acid 400 mcg tablet 0.4 mg PO DAILY #90 tabs losartan 25 mg tablet 25 mg PO DAILY #90 tabs 09/20 02/14 quetiapine 300 mg tablet 300 mg PO BEDTIME 30 days #3 0 tabs 10/08/24 tizanidine 4 mg tablet 4 mg PO BEDTIME PRN muscle 0 10/08/24 spasticity 30 days #30 tabs cyclobenzaprine 10 mg tablet 10 mg PO BEDTIME PRN musc le spasm 11/13/24 #5 tabs meloxicam 15 mg tablet 15 mg PO DAILY #14 tabs 10/22 09/14 Allergies Allergy/AdvReac Type Severity Reaction Status Date / Time No Known Allergies (No Known Allergy Verified 11/13/24 11:35 Allergies*) Review of Systems Review of Systems: Yes all other systems are reviewed and are negative PMFSH Past Medical History Attestation statement: The following information was validated with the patient. Source: old records reviewed and nursing notes reviewed Medical History Anemia Full dentures Numbness and tingling in left hand Personal history of COVID-19 Depression Anxiety TMJ (dislocation of temporomandibular joint) Opioid abuse Back pain Hypertension Bipolar 1 disorder History of gynecomastia (~02/13/20) Surgical History Hx of colonoscopy Hx of hand surgery History of breast lump/mass excision History of vasectomy Family History Family History Mother History of breast cancer Other Mental health disorder Substance use disorder Social History Social History Household Members: None Housing: Apartment Are you a primary health and social care teacher to a significant other at home: No Do you presently have visiting nurse or other home services: No Alcohol intake: former Patient Tobacco Use Status: Former Tobacco user Tobacco use type: Cigarette Years Smoked: quit 6 years ago e-Cigarette/Vaping Use: Currently Using Second Hand Smoke Exposure: Yes Substance Use Type: Opiates Advance Directives Date on File: 05/28/20 Current occupational status: unemployed 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 There is no midline tenderness step-offs or deformities of entire spine no obvious ecchymosis or skin lesions process steward strength is 4+ throughout he has a negative Spurling test bilaterally. Full range of motion of bilateral upper limbs General: cooperative, healthy appearing, comfortable, no acute distress, well developed, alert, awake and Physically active Nutritional Appearance: average body habitus Orientation/consciousness: patient oriented x3 Limitations: no limitations HEENT: Head: Yes normal to inspection, Yes No palpable skull fracture present, Yes normocephalic and Yes atraumatic Ears: hearing grossly normal bilaterally, external ears normal, TM's normal bilaterally and mastoids normal General nose exam: Normal external nose present Face and sinus: Yes normal facial exam and Yes sinuses nontender Mouth: Normal oral and palatal mucosa present, lip normal and tongue normal Throat: Yes posterior oropharynx normal Eyes: General: appearance normal, both eyes and all related structures Eyelids: Yes eyelids normal Conjunctivae: conjunctivae normal Sclerae: sclerae normal EOM: EOMs intact bilaterally Neck: Neck: Yes normal visual inspection, Yes full ROM (Limited cervical rotation bilaterally), Yes no lymphadenopathy, Yes no meningeal signs and Yes trachea midline Resp: Effort & Inspection: normal respiratory effort and able to speak in complete sentences Auscultation: clear to auscultation bilaterally Cardio: Palpation: normal PMI Rate: regular rate Rhythm: regular rhythm Skin: General skin exam: no rashes or lesions noted and elasticity normal Neuro: General: patient oriented x3 and no meningeal signs Cranial nerves: Yes CN's II-XII intact bilaterally Cognition (Neuro): normal cognition Gait exam (Neuro): Normal gait present Motor exam (neuro): 5/5 motor strength present throughout, Pronator motor function not present, no tremor noted, no asterixis and Motor fasciculations not present Medical Decision Making Medical Decision Making MDM Narrative: Well-appearing 49-year-old male who actually looks younger than his stated age presenting to the ED today for acute on chronic cervical spine pain with subjective paresthesias. + sensation of weakness and numbness however neurovascularly intact on exam would negative Spurling test. UC Workup: Defer C-Spine imaging given negative by NEXUS criteria-had imaging of this 1 year ago with no new trauma which only showed arthritis. Given History, Exam the patient appears to have a cervical radiculopathy.? Patient appears to be low risk for complications or other emergent conditions such as? anginal equivalent, hayley cervical instability, arterial dissection, osteomyelitis, epidural abscess, central cord syndrome, c-spine fracture, other spinal emergencies Rx: NSAIDs, outpatient physical therapy evaluation and recommendation for home exercises in the interim Disposition: Discharge. The patient has been given strict return precautions and understands the need to follow up within 48 hours with their primary care provider. Differential Diagnosis Differential Diagnoses: The differential diagnosis associated with the pres entation includes cervical radiculopathy, spasmodic torticollis, even less likely -hayley cervical instability, arterial dissection, osteomyelitis, epidural abscess, central cord syndrome, C-spine fracture, other spinal emergency Admission/Observation Consideration of admission/observation: Escalation of care including admiss ion/observation considered Patient would have been admitted to the hospital had his work up had any findings where hospital admission was appropriate and his clinical presentation warranted hospital admission. Independent Historian Clinical information obtained from an independent historian. History obtained from or confirmed by: Friend Tests considered The following testing was considered but not selected: Would have considered imaging of CT scan had patient had any trauma would have considered MRI imaging had patient had a concerns of neurovascular compromise. Prescription Management I considered prescription management with: Pain Medication Chronic Conditions Patient?s care impacted by: Other (Arthritis) Discharge Plan Discharge Clinical Impression: Cervical radiculopathy, Muscle spasms of neck Patient Disposition: Home, Self-Care Instructions: Cervical Radiculopathy (ED), Muscle Spasm (ED) Additional Instructions: You were seen in the emergency department today for evaluation of acute on chronic neck pain. On physical exam you have a spasm of her left upper trapezius. Based on her history does sound like you have cervical radiculopathy going on but there is no evidence of neurovascular compromise. May alternate Tylenol 650 mg every 4-6 hours as needed for pain you can take this in conjunction with the meloxicam. Do not exceed 3000 mg in 24 hours. Consider the use of topical therapies such as Biofreeze icy hot [place] or even lidocaine or Salonpas patches do not use other topical therapies at the same time moist heat works better than dry heat please call orthopedics. Return to the emergency department should you experience any worsening pain or inability to use her hand Prescriptions: New meloxicam 15 mg tablet 15 mg PO DAILY Qty: 14 0RF cyclobenzaprine 10 mg tablet 10 mg PO BEDTIME PRN (Reason: muscle spasm) Qty: 5 0RF No Action omeprazole 20 mg capsule,delayed release(DR/EC) 20 mg PO DAILY Qty: 90 1RF metoprolol succinate 25 mg tablet extended release 24 hr 12.5 mg PO DAILY Qty: 45 1RF folic acid 400 mcg tablet 0.4 mg PO DAILY Qty: 90 1RF losartan 25 mg tablet 25 mg PO DAILY Qty: 90 1RF quetiapine 300 mg tablet 300 mg PO BEDTIME 30 Days Qty: 30 3RF tizanidine 4 mg tablet 4 mg PO BEDTIME PRN (Reason: muscle spasticity) 30 Days Qty: 30 2RF ibuprofen 800 mg tablet 800 mg PO TID PRN (Reason: pain) Qty: 14 0RF buprenorphine-naloxone 12-3 mg film 15 mg sublingual DAILY clotrimazole-betamethasone 1-0.05 % cream 1 appl topical BID 14 Days Qty: 45 0RF Referrals: [facility] [place] [facility] [Provider Group, Orthopedics] - 1 week Clinical Impression: Muscle spasms of neck; Cervical radiculopathy Interventions: ED Discharge Assessment Last Done: 11/13/24 11:54 Discharge Date/Time: 11/13/24 11:56 Print Language: Kinyarwanda
[2024-11-13 11:54] VITALS: BP 133/88; PULSE 87; RESP 16; TEMP 36.1; O2SAT 98
== END 2024-11-13 11:56 | disposition home or self-care (01) ==
PROVIDERS: Emergency Provider Emergency Medicine; PCP Nurse Practitioner Family
DX: M54.12 Radiculopathy, cervical region (principal); M62.838 Other muscle spasm; M54.2 Cervicalgia
CPT/HCPCS: 99282; 99283

== ENCOUNTER 2024-12-31 07:59 | Outpatient (AMB) | payer OTHER, SELFPAY ==
--- NOTE | 2024-12-31 08:08 | A.OFFPC_ITS ---
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 Accompanied by: Self / Same As Patient Allergies No Known Allergies (No Known Allergies*) Allergy (Verified 12/31/24 08:52) Medication List - Last Reconciled 12/31/24 by ZAIRE Maloney- buprenorphine-naloxone 12-3 mg 15 mg sublingual DAILY clotrimazole-betamethasone 1-0.05 % 1 appl topical BID 2 weeks cyanocobalamin (vitamin B-12) 1,000 mcg sublingual DAILY folic acid 0.4 mg PO DAILY losartan 25 mg PO DAILY meloxicam 15 mg PO DAILY metoprolol succinate ER 12.5 mg (1/2 x 25 mg) PO DAILY omeprazole 20 mg PO DAILY quetiapine 300 mg PO BEDTIME 30 days tizanidine 4 mg PO BEDTIME PRN 30 days Tobacco use date assessed: 12/31/24 Dental Screening Dental Screen Date: 12/31/24 Did you have a dental visit in the last 12 months?: No Did you have a dental problem in the last 6 months where you did not have access to dental care?: No Was dental information given to patient?: Patient has dentist HPI ?Celiac HPI Details Chief Complaint The patient presents with muscle aches and joint discomfort. History of Present Illness The patient is a 49-year-old male presenting with muscle aches and joint discomfort. He reports experiencing more muscle aches in the morning, particularly affecting his hands and upper extremities, along with joint discomfort. Additionally, he reports slight fatigue. The patient has a history of chronic normocytic anemia, which was previously evaluated by hematology. The last hematology visit was in April 2024, and the findings were benign, with no evidence of hepatosplenomegaly, lymphadenopathy, or malignancy on CT scan. B12 deficiency was corrected with supplementation, and serum immunofixation and copper levels were normal, with no evidence of hemolysis. Follow up in 6 month was mentioned, though it doesnt appear pt is scheduled with hematology for a follow up Social History Health Maintenance Review of Systems - Musculoskeletal: Reports muscle aches in the morning, joint discomfort. - General: Reports slight fatigue. - Gastrointestinal: Denies diarrhea, stacie sea, vomiting. - Cardiovascular: Denies chest pain, gregorio rtness of breath. Physical Exam General: Cooperative, healthy appearing, comfortable, no acute distress and well developed Orientation: Patient oriented x3 Limitations: none Head: Normal to inspection Ears: Hearing grossly normal bilaterally Nose: Normal external nose present Face and sinus: Normal facial exam Eyes: Appearance normal, both eyes and all related structures Neck: Normal visual inspection and Yes full ROM Respiratory: Normal respiratory effort and able to speak in complete sentences. Clear to auscultation bilaterally Cardiovascular: Regular rate and rhythm. Normal S1 and S2 GI: Normal to inspection. Soft to palpation and nontender Skin: No rashes or lesions noted Neuro: Patient oriented x3 Extremities: slight swelling to MCP joints bilat. No other swelling or erythema noted to joints/extrem. Results - CT scan: No evidence of hepatosplenome peter, lymphadenopathy, or malignancy. - Serum immunofixation: Normal. - Copper level: Normal. - No evidence of hemolysis. Plan The plan includes ordering additional laboratory tests, including CBC, ferritin, iron, and , to further evaluate the patient's symptoms and anemia status. An EKG will be performed today due to the reported symptoms, and the results will be compared with previous lab findings to identify any new developments. Discussion Notes I discussed with the patient the importance of monitoring his anemia and the need for further laboratory tests to assess his current condition. We also talked about performing an EKG today to rule out any cardiac issues related to his symptoms. Patient Instructions - Undergo EKG today as part of the evalu ation. - Await further instructions based on la b results. [facility] Medical History Anemia Full dentures Numbness and tingling in left hand Personal history of COVID-19 Depression Anxiety TMJ (dislocation of temporomandibular joint) Opioid abuse Back pain Hypertension Bipolar 1 disorder History of gynecomastia (~02/13/20) Surgical History Hx of colonoscopy Hx of hand surgery History of breast lump/mass excision History of vasectomy Family History Mother History of breast cancer Other Mental health disorder Substance use disorder Social History Household Members: None Housing: Apartment Are you a primary multi care technician to a significant other at home: No Do you presently have visiting nurse or other home services: No Alcohol intake: former Patient Tobacco Use Status: Former Tobacco user Tobacco use type: Cigarette Years Smoked: quit 6 years ago e-Cigarette/Vaping Use: Currently Using Second Hand Smoke Exposure: Yes Substance Use Type: Opiates Advance Directives Date on File: 05/28/20 Current occupational status: unemployed 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 Depression Screening Interpretation: Negative Depression Screening Done: Yes Source: Developed by Drs. Shaq Metzger, Nory Olmedo, Rodger Tran and colleagues, with an educational lien from [employer]. Thrive Questionnaire Date Thrive assessed: 06/18/24 I am a: Patient What is your living situation today?: I have a steady place to live Within the past 12 months, did the food you bought not last and you didn't have the money to get more?: Sometimes True Within the past 12 months, did you worry whether your food would run out before you got money to buy more?: Sometimes True Do you have trouble paying for medicines?: No Do you have trouble getting transportation to medical appointments?: No Do you have trouble paying your heating and electricity bill?: Yes Do you have trouble taking care of your child, family member or friend?: No Do you have trouble with day-to-day activities such as bathing, preparing meals, shopping, managing finances, etc.?: No Are you currently unemployed and looking for a job?: Yes Are you interested in more education?: No Please select the resources that you would like help with: Housing/Longterm Currently or been in a relationship where the following occur: No concerns reported THRIVE Score: 3 NABIL-7 AMB Questionnaire NABIL-7 Date NABIL - 7 assessed: 06/18/24 Source: Developed by Drs. Shaq Metzger, Nory Olmedo, Rodger Tran and colleagues, with an educational lien from [employer]. Physical exam (Primary Care) Vital Signs: Last Vital Signs Temp 98.4 F 12/31/24 08:11 Pulse 75 12/31/24 08:11 Resp 16 12/31/24 08:11 BP 104/68 12/31/24 08:11 Pulse Ox 98 12/31/24 08:11 Oxygen Delivery Method Room Air 12/31/24 08:11 BMI result Body Mass Index 28.6 Tobacco/Smoking Status: Tobacco use Status Tobacco use date assessed 12/31/24 12/31/24 08:10 Patient Tobacco Use Status Former Tobacco user 12/31/24 08:10 Tobacco use type Cigarette 12/31/24 08:10 e-Cigarette/Vaping Use Currently Using 12/31/24 08:10 Depression Screening Interpretation: Negative Thrive Assessment: Date of Thrive Assessment Date Thrive assessed 06/18/24 12/31/24 08:10 Currently or been in a relationship where the following occur: No concerns reported Coding Level of Care Code Est Pt Level 4 (95579) Diagnoses Body aches R52 Fatigue R53.83 Swelling of both hands M79.89 Assessment & Plan Assessment & Plan (1) Body aches: Code(s): R52 - Pain, unspecified Category: Medical (2) Fatigue: Code(s): R53.83 - Other fatigue Category: Medical (3) Swelling of both hands: Code(s): M79.89 - Other specified soft tissue disorders Category: Medical Plan . Orders: Orders HEMANTH Reflex Titer and Pattern Today R52 - Pain, unspecified, R53.83 - Other fatigue Complete Blood Count Auto Diff Today R52 - Pain, unspecified, R53.83 - Other fatigue Rheumatoid Factor Today R52 - Pain, unspecified, R53.83 - Other fatigue Ferritin Today R52 - Pain, unspecified, R53.83 - Other fatigue Endomysial IgA rflx Titer Today R52 - Pain, unspecified, R53.83 - Other fatigue Transglutaminase IgA Today R52 - Pain, unspecified, R53.83 - Other fatigue Complement C3 Today R52 - Pain, unspecified, R53.83 - Other fatigue IRON PROFILE Today R52 - Pain, unspecified, R53.83 - Other fatigue Vitamin D 25-OH Total Today R52 - Pain, unspecified, R53.83 - Other fatigue Cyclic Citrullinated Peptide Today R52 - Pain, unspecified, R53.83 - Other fatigue AMB EKG-In Office Today R52 - Pain, unspecified, R53.83 - Other fatigue XR Hand Bilat min 3v Today M79.89 - Other specified soft tissue disorders Lyme IgG/IgM w/reflex to WB Today R52 - Pain, unspecified, R53.83 - Other fatigue Vitamin B12 and Folate Today R52 - Pain, unspecified, R53.83 - Other fatigue Vitamin B6 Today R52 - Pain, unspecified, R53.83 - Other fatigue Comprehensive Met. Panel Today R52 - Pain, unspecified, R53.83 - Other fatigue TSH reflex Free T4 Today R52 - Pain, unspecified, R53.83 - Other fatigue Transglutaminase Ab IgG Today R52 - Pain, unspecified, R53.83 - Other fatigue Celiac Disease Panel Today R52 - Pain, unspecified, R53.83 - Other fatigue Complement C4 Today R52 - Pain, unspecified, R53.83 - Other fatigue Lactate Dehydrogenase Today R53.83 - Other fatigue Sjogren's Antibodies Today R52 - Pain, unspecified, R53.83 - Other fatigue
[2024-12-31 08:11] VITALS: BP 104/68; PULSE 75; RESP 16; TEMP 36.9; O2SAT 98; BMI 28.6
== END 2024-12-31 08:55 | disposition home or self-care (01) ==
LOC: HO.HMCC 08:00
PROVIDERS: PCP Nurse Practitioner Family; Visit Provider Nurse Practitioner Family
DX: R52 Pain, unspecified (principal); R53.83 Other fatigue; M79.89 Other specified soft tissue disorders

== ENCOUNTER 2024-12-31 07:59 | Outpatient (REF) | payer OTHER, SELFPAY ==
[2024-12-31 10:12] LABS: MANUAL DIFF FLAG NO
[2024-12-31 10:16] LABS: Hematocrit 36.4 % (42.0-52.0); Hemoglobin 12.4 g/dl (14.0-18.0); Imm Gran Abs Auto 0.01 X10*3/uL (0.00-0.03); Imm Gran Pct Auto 0.2 % (0.0-0.4); Lymphocytes Absolute Auto 1.8 X10*3/uL (1.2-4.9); Mean Corpuscular HGB Conc 34.1 g/dl (31.0-36.0); Mean Corpuscular Hemoglobin 30.4 pg (27.0-33.0); Mean Corpuscular Volume 89.2 fL (80.0-98.0); NRBC Abs Auto 0.000 X10*3/uL (0.0-0.012); NRBC Pct Auto 0.0 /100WBC (0.0-0.2); Platelet Count 211 X10*3/uL (160-400); Red Blood Count 4.08 X10*6/uL (4.60-5.80); White Blood Count 6.0 X10*3/uL (4.8-10.8)
[2024-12-31 10:59] LABS: Alanine Aminotransferase 19 U/L (0-40); Albumin Level 4.6 g/dL (3.5-5.0); Alkaline Phosphatase 36 U/L (39-117); Anion Gap 12 (12-20); Aspartate Amino Transferase 19 U/L (5-37); Blood Urea Nitrogen 11 mg/dL (9-16); Calcium 9.6 mg/dL (8.4-10.2); Carbon Dioxide 30 mmol/L (22-29); Chloride 104 mmol/L (96-108); Estimated Glomerular Filt Rate > 60; Iron 82 mcg/dL (45-160); Percent Iron Saturation 37 % (15-50); Potassium 3.9 mmol/L (3.3-5.1); Sodium 142 mmol/L (135-145); Total Iron Binding Capacity 222 mcg/dL (228-428); Total Protein 6.7 g/dL (6.5-8.0); Unsaturated Iron Binding 140 ug/dL
[2024-12-31 11:17] LABS: Ferritin 362 ng/mL (20-250)
[2024-12-31 11:26] LABS: Folate 11.5 ng/mL (> or = 4.0); Vitamin B12 > 2000 pg/mL (200-900)
[2025-01-01 05:49] LABS: Lyme Abs Screen <0.90 index
[2025-01-01 21:19] LABS: Antibody to SS-A Antigen <1.0 NEG AI (<1.0 NEG); Antibody to SS-B Antigen <1.0 NEG AI (<1.0 NEG)
[2025-01-01 21:43] LABS: Immunoglobulin A 177 mg/dL (47-310); Transglutaminase Ab IgG <1.0 U/mL
[2025-01-03 21:58] LABS: Anti Nuclear Antibody Screen NEGATIVE (NEGATIVE)
== END 2024-12-31 08:00 | disposition home or self-care (01) ==
LOC: HO.HMGCLDS 07:59
PROVIDERS: PCP Nurse Practitioner Family; Visit Provider Nurse Practitioner Family
DX: R52 Pain, unspecified (principal); R53.83 Other fatigue; R60.0 Localized edema; D64.9 Anemia, unspecified
CPT/HCPCS: 36415; 80053; 82306; 82607; 82728; 82746; 82784; 83540; 83615; 84207; 84443; 85025; 86038; 86160; 86200; 86231; 86235; 86364; 86431; 86617; 86618; 99212

== ENCOUNTER 2025-01-02 12:26 | Outpatient (REF) | payer OTHER, SELFPAY ==
--- NOTE | ~2025-01-02 | XR_ITS ---
EXAMINATION: XR HAND 3 VIEWS BILATERAL CLINICAL INFORMATION: M79.89 - Other specified soft tissue disorders COMPARISON: None TECHNIQUE: PA, lateral, and oblique views of the each hand. FINDINGS: RIGHT HAND: The bones and soft tissues appear normal. No fracture. Alignment is anatomic. Joint spaces are maintained. No erosions or soft tissue calcifications. LEFT HAND: The bones and soft tissues appear normal. No fracture. Alignment is anatomic. Joint spaces are maintained. No erosions or soft tissue calcifications. XR/XR Hand Bilat min 3v IMPRESSION: No evidence of significant arthritis. No soft tissue calcifications. Electronically signed by: Tobias Hines MD 01/02/2025 05:36 PM EDT
== END 2025-01-02 12:27 | disposition home or self-care (01) ==
LOC: HO.HMGCX 12:26
PROVIDERS: PCP Nurse Practitioner Family; Visit Provider Nurse Practitioner Family
DX: M79.89 Other specified soft tissue disorders (principal)
CPT/HCPCS: 73130

== ENCOUNTER → 2025-01-02 12:30 | Outpatient (BNV) | payer OTHER, SELFPAY | PROVIDERS: PCP Nurse Practitioner Family; Visit Provider Radiology Body Imaging | DX: M79.641 Pain in right hand (principal); M79.642 Pain in left hand | CPT/HCPCS: 73130 ==

== ENCOUNTER 2025-02-22 09:30 | Outpatient (AMB) | payer OTHER, SELFPAY ==
--- NOTE | 2025-02-22 09:39 | MHC.OFFVIS ---
Vital Signs 02/22/25 09:41 Height 5 ft 11 in Weight 204 lb BMI 28.4 BP 104/63 Blood Pressure Location Lt brachial Position Sitting Pulse 79 Pulse Oximetry (%) 98 Oxygen Delivery Method Room Air Intake Visit Reasons: EGD/Colonoscopy screening Intake Note: Patient complex follow up for EGD/Colonoscopy recall/Johana johnson was 07/2023 and last Colonoscopy by Dr. Whitfield was 10/2023 with a year recall. Patient cc: daily nauseas, abdominal bloating, and diarrhea. Deniesa ny other GI issues for today visit. 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 Accompanied by: Self / Same As Patient Allergies No Known Allergies (No Known Allergies*) Allergy (Verified 12/31/24 08:52) Medication List - Last Reconciled 02/22/25 by Loren Gibson CNP buprenorphine-naloxone 12-3 mg 15 mg sublingual DAILY clotrimazole-betamethasone 1-0.05 % 1 appl topical BID PRN docusate sodium 100 mg PO DAILY folic acid 0.4 mg PO DAILY losartan 25 mg PO DAILY meloxicam 15 mg PO DAILY PRN metoprolol succinate ER 12.5 mg (1/2 x 25 mg) PO DAILY omeprazole 20 mg PO DAILY quetiapine 300 mg PO BEDTIME 30 days tizanidine 4 mg PO BEDTIME PRN 30 days HPI HPI EGD/Colonoscopy screening: Details: Patient is a 49-year-old male with PMH of anxiety, depression, bipolar and hypertension. Referred by PCP for pre colonoscopy screening Genaro presents for GI evaluation and pre-procedure clearance, reporting persistent nausea ongoing for approximately two years, beginning after a self-reported E. coli infection. He denies vomiting, though occasionally feels the urge; bland diet and omeprazole provide only partial relief. He describes soft stools occurring every three days, which he identifies as baseline, with no notable straining or blood, but is aware his daily buprenorphine-naloxone therapy may be contributing to constipation. He experiences intermittent left lower abdominal/groin pain, non-radiating, not clearly triggered, with episodes described as occurring roughly once weekly and resolving spontaneously. He has observed fluctuating weight, including rapid weight loss and regain, along with reduced appetite and increased gag reflex when attempting to eat, often despite underlying hunger since E. coli infection 2 years ago. He has a history of internal hemorrhoids and anemia, with prior workup revealing no evidence of iron deficiency; he has not required ongoing B12 supplementation after previously elevated levels induced worsening fatigue. Relevant comorbidities include hypertension (on losartan, metoprolol), chronic pain (intermittent meloxicam, tizanidine), and long-term buprenorphine-naloxone for opioid use disorder in sustained remission. Prior imaging (CT, colonoscopy) was reassuring except for incomplete colonic visualization and one elevated liver enzyme; no biliary ductal dilation or obvious hepatic pathology was seen. Patient denies: fever/chills, vomiting, pyrosis, regurgitation,dysphasia, unintentional wt loss or melena/hematochezia. Social hx: -denies ETOH use -misuse of prescription opioids, denies other recreational drug use -former smoker, cessation 7 years ago - family hx as below -denies personal hx of CA -denies significant cardiopulmonary history -tolerated anesthesia in the past without difficulty. [facility] Medical History (Updated 02/22/25 @ 17:25 by Loren Gibson CNP) Constipation Elevated alkaline phosphatase level Anemia Full dentures Numbness and tingling in left hand Personal history of COVID-19 Depression Anxiety TMJ (dislocation of temporomandibular joint) Opioid abuse Back pain Hypertension Bipolar 1 disorder History of gynecomastia (~02/13/20) Surgical History Hx of colonoscopy Hx of hand surgery History of breast lump/mass excision History of vasectomy Family History Mother History of breast cancer Other Mental health disorder Substance use disorder Social History Household Members: None Housing: Apartment Are you a primary infant childcare provider to a significant other at home: No Do you presently have visiting nurse or other home services: No Alcohol intake: former Patient Tobacco Use Status: Former Tobacco user Tobacco use type: Cigarette Years Smoked: quit 6 years ago e-Cigarette/Vaping Use: Currently Using Second Hand Smoke Exposure: Yes Substance Use Type: Opiates Advance Directives Date on File: 05/28/20 Current occupational status: unemployed 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 Gender identity: Male Cognitive needs: No Hearing needs: No Vision needs: No Review of Systems Const Reports as per HPI ENT Reports as per HPI Card Reports as per HPI Resp Reports as per HPI GI Reports as per HPI Reports as per HPI Physical Exam Vital Signs: Last Vital Signs Pulse 79 02/22/25 09:41 BP 104/63 02/22/25 09:41 Pulse Ox 98 02/22/25 09:41 Oxygen Delivery Method Room Air 02/22/25 09:41 BMI result Body Mass Index 28.4 Const General: healthy appearing, no acute distress and well developed Nutritional Appearance: average body habitus Orientation/consciousness: patient oriented x3 HEENT Head: Yes normal to inspection, Yes normocephalic and Yes atraumatic Face and sinus: Yes normal facial exam Eyes General: appearance normal, both eyes and all related structures Neck Neck: Yes normal visual inspection Resp Effort & Inspection: normal respiratory effort, able to speak in complete sentences, no tracheal deviation and symmetric chest movement Cardio Jugular venous distension: no JVD GI Inspection: Yes normal to inspection and No distended Palpation (GI): Soft to palpation, not firm, nontender and No hepatosplenomegaly present Auscultation: normal bowel sounds Neuro General: patient oriented x3 Gait exam (Neuro): Normal gait present Psych Appearance: grossly normal Mental Status: mental status grossly normal Speech and movement: Normal speech and movement present Affect: normal affect Attitude: cooperative Thought process: Normal thought process present Thought content: Normal thought content present Insight: Good insight present (Psych) Judgement: Good judgement present (Psych) Results Reviewed Results Reviewed: Operative Note Date of Service: 11/16/23 Narrative: Operative Information Procedure Description: Colonoscopy Indication: screening Anesthesia: MAC COLONOSCOPY Instrument: Olympus variable stiffness pediatric scope 190L Colonoscopy Monitoring: Vital signs and clinical assessment, continuous EKG monitoring, Pulse oximetry, Carbon Dioxide monitoring and blood pressure monitoring were done throughout the procedure. Colon withdrawal time was 7 minutes. Procedure: The patient was placed in the left lateral decubitis position and pre-procedure medications were administered. After a digital rectal examination of the ano-rectum, the video colonoscope was inserted into the rectum and advanced through the colon to the cecum/TI. The colonoscope was slowly withdrawn in a retrograde panoramic fashion and the colon mucosa was carefully examined including a retroflexed view of the rectum. Findings and interventions are described below. Procedure Difficulty: moderate, pressure applied Findings: Terminal Ileum-normal Cecum:normal Ascending Colon: normal Transverse Colon -normal Descending Colon:normal Sigmoid Colon: normal Rectum: Retroflexion with small internal hemorrhoids seen, grade I Anorectum - normal Intervention: none Colon preparation: [place] Bowel Preparation Scale Right colon; 2 Transverse colon: 2 Left colon; 1 (0 = Unprepared colon segment with mucosa not seen due to solid stool that cannot be cleared. 1 = Portion of mucosa of the colon segment seen, but other areas of the colon segment not well seen due to staining, residual stool and/or opaque liquid. 2 = Minor amount of residual staining, small fragments of stool and/or opaque liquid, but mucosa of colon segment seen well. 3 = Entire mucosa of colon segment seen well with no residual staining, small fragments of stool or opaque liquid) Impression and Post Procedure Diagnosis: internal hemorrhoids Plan: High fiber diet leaflet Avoid straining at stool, epsom salts and sitz bath, anusol supps or cream Repeat Colonoscopy in 1 year due to fair/poor prep in parts of the left side or earlier if clinically indicated Date of Service: 07/01/23 Procedure(s): CT abdomen pelvis wo IV con Accession Number(s): [id number] cc: Jorge Solis [facility]~ EXAMINATION: CT ABDOMEN AND PELVIS WITHOUT CONTRAST CLINICAL INFORMATION: Diarrhea. COMPARISON: CT abdomen and pelvis dated 02/25/2023. TECHNIQUE: Multidetector volumetric imaging was performed from the superior aspect of the liver through the pubic symphysis. Sagittal and coronal reformatted images were obtained on the technologist's workstation. This CT examination was performed using dose optimization techniques as appropriate, variously including the following: *Automated exposure control *Adjustment of mA and/or kV according to patient size (this includes techniques or standardized protocols for targeted exams where dose is matched to indication/reason for exam; i.e. extremities or head) *Use of iterative reconstruction technique DLP: 562 mGy-cm FINDINGS: LUNG BASES: The visualized lung bases are unremarkable. LIVER, GALLBLADDER, AND BILIARY TREE: The liver is normal in size, shape, and attenuation. No focal hepatic lesion or biliary ductal dilatation is present. The gallbladder is unremarkable with no evidence of radiopaque gallstones, gallbladder wall thickening, or obvious pericholecystic inflammatory changes. PANCREAS: There is diffuse fatty infiltration. No focal mass or enlargement is seen. There is no pancreatic ductal dilatation. No significant peripancreatic fat stranding or acute fluid collection is noted. SPLEEN: Unremarkable, with a longitudinal span in the coronal plane of 12.4 cm. ADRENAL GLANDS: Unremarkable. KIDNEYS AND URETERS: The kidneys are normal in size, shape, and attenuation. No hydronephrosis, hydroureter, or calculi seen. No perinephric stranding. BLADDER: Unremarkable. GASTROINTESTINAL TRACT: The small and large bowel are unremarkable. The appendix is unremarkable. ABDOMINAL WALL: There is a tiny fat-containing umbilical hernia. LYMPH NODES: Normal. VASCULAR: There is moderate aortoiliac atherosclerotic calcification. No abdominal aortic aneurysm is seen. PELVIC VISCERA: The prostate and seminal vesicles are unremarkable. OSSEOUS STRUCTURES: There is mild thoracolumbar spondylosis. No acute or aggressive osseous finding is noted. CT/CT abdomen pelvis wo IV con IMPRESSION: No significant abnormality. Assessment & Plan Assessment & Plan (1) Screening for colon cancer: Comment: index screening colon Code(s): Z12.11 - Encounter for screening for malignant neoplasm of colon Category: Medical Plan: inadequate left colonic visualization necessitating repeat scope Medications: -prescriptions for laxative tablets and PEG sent to pharmacy; instructions on clear liquid diet given. -understands acid take meloxicam within 7 days of procedure Patient educated on scheduling process, procedure preparation, including avoiding certain foods and ensuring clear liquid intake Advised on necessity for ride post-procedure due to sedation. (2) Constipation: Code(s): K59.00 - Constipation, unspecified Category: Medical Qualifiers: Constipation type: drug induced constipation Qualified Code(s): K59.03 - Drug induced constipation Plan: Buprenorphine-naloxone recognized for constipation; baseline BM q3d without straining or blood, but at risk for complications Additional Testing: None needed if symptoms stable; monitor for worsening/obstruction Medication Management: Daily stool softener (Colace) strongly encouraged as prophylaxis; consider osmotic laxative if inadequate (e.g., polyethylene glycol) Lifestyle Recommendations: Fiber-rich diet as tolerated, hydration, regular BM routine Follow-Up: Symptom-based; reassess in GI follow-up, sooner if no improvement or increased discomfort (3) Nausea: Code(s): R11.0 - Nausea Category: Medical Plan: Persistent symptoms following E. coli infection, no current evidence for obstructive or inflammatory process by prior imaging; medication effect possible but needs exclusion of upper GI pathology Additional Testing: - Upper endoscopy (EGD) scheduled to evaluate esophagus/gastric/duodenal mucosa - Liver panel, comprehensive metabolic panel, CBC, additional labs to exclude cholestatic or metabolic processes Medication Management: Continue omeprazole; monitor for efficacy/side effects; consider antiemetic trial if EGD negative and symptoms persist Lifestyle Recommendations: Maintain bland tolerable diet, avoid triggers, hydrate, continue fiber as tolerated, avoid NSAIDs/irritants with meals/snacks Follow-Up: After EGD and lab results; adjust plan based on findings (4) Elevated alkaline phosphatase level: Code(s): R74.8 - Abnormal levels of other serum enzymes Category: Medical Plan: elevated on prior labs, no biliary ductal dilation or focal hepatic lesions on imaging; possible medication effect, metabolic, or post-infectious process Additional Testing: - Repeat liver panel (AST, ALT, ALP, GGT, bilirubin), fasting - Hepatitis panel and autoimmune markers Medication Management: Review current meds for hepatotoxicity; avoid unnecessary hepatotoxins Lifestyle Recommendations: Maintain healthy weight, avoid alcohol, continue monitoring Follow-Up: Review labs after repeat testing; further workup as indicated Plan Follow-up after endoscopy or sooner as needed Time: I spent a total of 30 minutes on the date of encounter which includes: Preparing to see the patient (reviewed previous documentation, test results and medical history) Performing a medically appropriate exam and/or evaluation Ordering medications, tests, and procedures Documenting clinical information in the health record Orders: Orders Lipase Today Loren Gibson CNP R74.8 - Abnormal levels of other serum enzymes Mitochondrial Antibody Today Loren Gibson CNP R74.8 - Abnormal levels of other serum enzymes Ferritin Today Loren Gibson CNP R74.8 - Abnormal levels of other serum enzymes Prothrombin Time INR Today Loren Gibson CNP R74.8 - Abnormal levels of other serum enzymes Hepatitis A,B,C Profile Today Loren RoachPERLITA curry R74.8 - Abnormal levels of other serum enzymes Smooth Muscle Antibody Today Loren Gibson CNP R74.8 - Abnormal levels of other serum enzymes HEMANTH Reflex Titer and Pattern Today Loren PERLITA Gibson R74.8 - Abnormal levels of other serum enzymes Transglutaminase IgA Today Loren PERLITA Gibson R74.8 - Abnormal levels of other serum enzymes Alkaline Phosphatase Isoenzyme Today Loren Gibson CNP R74.8 - Abnormal levels of other serum enzymes Referrals GI Procedure Notification Loren PERLITA Gibson Z12.11 - Encounter for screening for malignant neoplasm of colon Medications: New bisacodyl Take per colonoscopy instructions 5 mg PO ONCE 4 tabs 0RF Loren Gibson CNP simethicone (Gas Relief (simethicone)) per colonoscopy prep instructions 125 mg PO ONCE 4 caps 0RF abdominal distention Loren Gibson CNP peg 3350-electrolytes [id number] -5.86 gram until fecal effluent is clear 240 mL PO Q10M 4,000 mL 0RF Loren Gibson CNP Changed From meloxicam 15 mg PO DAILY 14 tabs 0RF To meloxicam 15 mg PO DAILY PRN Misty Feng PA-C From clotrimazole-betamethasone 1-0.05 % 1 appl topical BID 2 weeks 45 grams 0RF To clotrimazole-betamethasone 1-0.05 % 1 appl topical BID PRN Jorge Solis, [employer] [employer] Coding Level of Care Code Established Pt Est Pt Level 4 (26057) Patient Type Established Diagnoses Screening for colon cancer Z12.11 Drug-induced constipation K59.03 Constipation type: drug induced constipation Nausea R11.0 Elevated alkaline phosphatase level R74.8
[2025-02-22 09:41] VITALS: BP 104/63; PULSE 79; O2SAT 98; BMI 28.4
== END 2025-02-22 11:11 | disposition home or self-care (01) ==
LOC: HO.HGI 09:32
PROVIDERS: PCP Nurse Practitioner Family; Visit Provider Nurse Practitioner Family
DX: Z01.818 Encounter for other preprocedural examination (principal); Z12.11 Encounter for screening for malignant neoplasm of colon; K59.03 Drug induced constipation; R11.0 Nausea; R74.8 Abnormal levels of other serum enzymes
CPT/HCPCS: 99024

== ENCOUNTER → 2025-02-22 09:30 | Outpatient (BNVA) | payer OTHER, SELFPAY | PROVIDERS: PCP Nurse Practitioner Family; Visit Provider Nurse Practitioner Family | DX: Z01.818 Encounter for other preprocedural examination (principal); K59.03 Drug induced constipation; R11.0 Nausea; R74.8 Abnormal levels of other serum enzymes | CPT/HCPCS: 99212 ==

== ENCOUNTER 2025-02-28 08:05 | Outpatient (AMB) | payer OTHER, SELFPAY ==
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
[2025-02-28 08:35] VITALS: BMI 28.4
== END 2025-02-28 09:05 | disposition home or self-care (01) ==
LOC: HO.HOS 08:06
PROVIDERS: PCP Nurse Practitioner Family; Visit Provider Physical Medicine & Rehabilitation
DX: R20.0 Anesthesia of skin (principal)
CPT/HCPCS: 99204

== ENCOUNTER → 2025-02-28 08:05 | Outpatient (BNVA) | payer OTHER, SELFPAY | PROVIDERS: PCP Nurse Practitioner Family; Visit Provider Physical Medicine & Rehabilitation | DX: R20.0 Anesthesia of skin (principal); M47.812 Spondylosis without myelopathy or radiculopathy, cervical region | CPT/HCPCS: 99202 ==

== ENCOUNTER 2025-03-18 13:08 | Outpatient (AMB) | payer OTHER, SELFPAY ==
--- NOTE | 2025-03-18 13:58 | MHC.OFFWIV ---
Intake Vital Signs 03/18/25 13:59 Height 5 ft 11 in Weight 204 lb BMI 28.4 BP 112/80 Blood Pressure Location Lt brachial Position Sitting Pulse 93 Pulse Source Pulse Oximeter Temp 98.3 F Temp Source Oral Pulse Oximetry (%) 97 Oxygen Delivery Method Room Air Intake Visit Reasons: ep growth on right side of head Intake Note: Patient presents with c/o dark colored growth on right side of head - has had for years & has grown throughout the years Patient Tobacco Use Status: Former Tobacco user Allergies No Known Allergies (No Known Allergies*) Allergy (Verified 03/18/25 14:01) Do you need a note to return to daycare/school/sports/work: No HPI HPI Comments History of Present Illness Details History of Present Illness - The patient is a 49-year-old male presenting with a growing lesion on the scalp. - The lesion began as a small dot two years ago and has increased in size over time. - It occasionally becomes itchy and painful, with slight bleeding noted. - There is a family history of melanoma and other skin cancers, contributing to the patient's concern. - The lesion has not been evaluated by a etl consultant previously. - He has no other rashes or lesions. Physical Exam General: Cooperative, healthy appearing, comfortable, no acute distress and well developed Orientation: Patient oriented x3 Limitations: No limitations Head: Lesion present on the head. Respiratory: Normal respiratory effort and able to speak in complete sentences. Clear to auscultation bilaterally Cardiovascular: Regular rate and rhythm. Normal S1 and S2 Skin: Single, round, raised, hyperpigmented, dark brown, non-tender, rough papule on the right lateral head. No surrounding erythema noted, no discharge, no other rashes or lesions noted Patient was informed and verbally consented to the use of an ambient scribe for clinic note documentation during this visit. [facility] Medical History (Updated 02/28/25 @ 08:48 by Jennifer Serrato MD) Constipation Elevated alkaline phosphatase level Anemia Full dentures Numbness and tingling in left hand Personal history of COVID-19 Depression Anxiety TMJ (dislocation of temporomandibular joint) Opioid abuse Back pain Hypertension Bipolar 1 disorder History of gynecomastia (~02/13/20) Surgical History Hx of colonoscopy Hx of hand surgery History of breast lump/mass excision History of vasectomy Family History Mother History of breast cancer Other Mental health disorder Substance use disorder Social History Household Members: None Housing: Apartment Are you a primary clinical care coordinator to a significant other at home: No Do you presently have visiting nurse or other home services: No Alcohol intake: former Patient Tobacco Use Status: Former Tobacco user Tobacco use type: Cigarette Years Smoked: quit 6 years ago e-Cigarette/Vaping Use: Currently Using Second Hand Smoke Exposure: Yes Substance Use Type: Opiates Advance Directives Date on File: 05/28/20 Current occupational status: unemployed 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 Gender identity: Male Cognitive needs: No Hearing needs: No Vision needs: No Review of Systems Const All systems reviewed & are unremarkable except as noted in HPI and below Physical Exam Vital Signs: Last Vital Signs Temp 98.3 F 03/18/25 13:59 Pulse 93 03/18/25 13:59 BP 112/80 03/18/25 13:59 Pulse Ox 97 03/18/25 13:59 Oxygen Delivery Method Room Air 03/18/25 13:59 BMI result Body Mass Index 28.4 Assessment & Plan Assessment & Plan (1) Skin lesion: Code(s): L98.9 - Disorder of the skin and subcutaneous tissue, unspecified Plan Most likely keratosis vs melanoma plan - Referral to dermatology for evaluation and biopsy of the lesion. - Patient advised to contact [facility] for an expedited appointment. Orders: Referrals Dermatology Referral L81.9 - Disorder of pigmentation, unspecified Coding Level of Care Code Est Pt Level 3 (31042) Diagnoses Skin lesion L98.9
[2025-03-18 13:59] VITALS: BP 112/80; PULSE 93; TEMP 36.8; O2SAT 97; BMI 28.4
== END 2025-03-18 15:06 | disposition home or self-care (01) ==
PROVIDERS: PCP Nurse Practitioner Family; Visit Provider Physician Assistant Medical
DX: L98.9 Disorder of the skin and subcutaneous tissue, unspecified (principal)

== ENCOUNTER → 2025-03-18 13:08 | Outpatient (BNVA) | payer OTHER, SELFPAY | PROVIDERS: PCP Nurse Practitioner Family; Visit Provider Physician Assistant Medical | DX: L81.9 Disorder of pigmentation, unspecified (principal) | CPT/HCPCS: 99212 ==

== ENCOUNTER 2025-04-30 06:31 | Day surgery (SDC) | payer OTHER, SELFPAY ==
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
[2025-04-26 12:12] VITALS: BMI 28.4
[2025-04-30] MEDS: Lactated Ringers 1,000 ML 100 ML IVCONT (07:24)
[2025-04-30 07:30] VITALS: BP 127/75; PULSE 75; RESP 18; TEMP 36.8; O2SAT 99
--- NOTE | 2025-04-30 07:42 | P.HPSUR_ITS ---
Pre-Procedural Eval Section A - 24 Hr Update-Section A only Date of Service: 04/30/25 Section B - Complete if H&P > 30 days Chief Complaint: abn bowel habits Relevant Family History (Specify if Yes): No Relevant Social History: None Present Medications: see Short Stay Collaborative assessment Medical History: Significant History (Constipation Elevated alkaline phosphatase level Anemia Full dentures Numbness and tingling in left hand Personal history of COVID-19 Depression Anxiety TMJ (dislocation of temporomandibular joint) Opioid abuse Back pain Hypertension Bipolar 1 disorder History of gynecomastia (~02/13/20)) History of Previous Operations: Relevant previous surgery/procedure and date(s) (S/P cubital tunnel release (02/03/23) Hx of colonoscopy Hx of hand surgery His tory of breast lump/mass excision (05/28/20) History of vasectomy) Allergies: Allergies Allergy/AdvReac Type Severity Reaction Status Date / Time No Known Allergies (No Known Allergy Verified 04/30/25 07:31 Allergies*) Review of Systems Sugical H&P ROS: Negative: Constitution, Cardiovascular, Respiratory, Neurological, Psychiatric, Hem-Onc, Allergic/Immunologic, Gastrointestinal, Genitourinary, Musculoskeletal, Integumentary, Endocrine and Eyes/Ears/Nose/Throat Exam Surgical H&P Exam: Normal: HEENT, Normal: Heart, Normal: Lungs, Normal: Extremities, Normal: Abdomen, Normal: Skin and Normal: Neurological Plan Diagnosis/Plan: Unchanged I have reviewed the history and physical and performed a pertinent physical examination on my patient. No changes have occurred unless specified. Time Spent With Patient Time: Total time managing care of this patient today ____ minutes.
--- NOTE | 2025-04-30 08:43 | P.OPN-COLO_ITS ---
Colonoscopy Operative Note Operative Note Date of Service: 04/30/25 Narrative: Operative Information Procedure Description: EGD, Colonoscopy Indication: abn bowel habits Anesthesia: MAC FLEXIBLE TRANSORAL UPPER GASTROINTESTINAL ENDOSCOPY AND COLONOSCOPY PROCEDURE NOTE UPPER ENDOSCOPY Consent: Indications for the procedure and potential complications of bleeding, perforation, reaction to medications and missed diagnosis were discussed with the patient and informed consent was obtained. Instrument: Olympus GIF H 190 J mid size upper endoscope Monitoring: Vital signs and clinical assessment, continuous EKG monitoring, Pulse oximetry, Carbon Dioxide monitoring and blood pressure monitoring were done throughout the procedure. Procedure: The patient was placed in the left lateral decubitis position and pre-procedure medications were administered and a bite block was placed. The endoscope was inserted into the mouth and advanced under direct vision to the third part of duodenum. A careful inspection was made as the upper endoscope was withdrawn including a retroflexed examination of the proximal stomach; Findings and interventions are described below. Findings: Larynx:normal Esophagus: GE junction at 40 cm, diaphragm hiatus at 40 cm, mild esophagitis, bx taken from GWEJ, and distal esophagus Stomach: Patchy erythema. Biopsies were obtained. Grade 2 flap valve on retroflexed examination of the cardia. Duodenum: Mild bulbar duodenitis, bx taken Intervention: Biopsies as noted above, COLONOSCOPY Instrument: Olympus variable stiffness pediatric scope 190L- changed to adult scope due to redundant colon Colonoscopy Monitoring: Vital signs and clinical assessment, continuous EKG monitoring, Pulse oximetry, Carbon Dioxide monitoring and blood pressure monitoring were done throughout the procedure. Colon withdrawal time was 11 minutes. Procedure: The patient was placed in the left lateral decubitis position and pre-procedure medications were administered. After a digital rectal examination of the ano-rectum, the video colonoscope was inserted into the rectum and advanced through the colon to the cecum/TI. The colonoscope was slowly withdrawn in a retrograde panoramic fashion and the colon mucosa was carefully examined including a retroflexed view of the rectum. Findings and interventions are described below. Procedure Difficulty: difficult Findings: Terminal Ileum-normal, bx taken Random bx taken from right and left colon Cecum:normal Ascending Colon: normal Transverse Colon -normal Descending Colon:normal Sigmoid Colon: mild diverticulosis Rectum: Retroflexion was not done due to position of patient (on back) and poor air insufflation, internal hemorrhoids, grade I noted on forward view --mucosa granular appearing, bx taken Anorectum - normal Colon preparation: [place] Bowel Preparation Scale Right colon; 1-2 Transverse colon: 2 Left colon; 1-2 (0 = Unprepared colon segment with mucosa not seen due to solid stool that cannot be cleared. 1 = Portion of mucosa of the colon segment seen, but other areas of the colon segment not well seen due to staining, residual stool and/or opaque liquid. 2 = Minor amount of residual staining, small fragments of stool and/or opaque liquid, but mucosa of colon segment seen well. 3 = Entire mucosa of colon segment seen well with no residual staining, small fragments of stool or opaque liquid) Impression and Post Procedure Diagnosis: Endoscopy Findings: gastritis esophagitis duodenitis Colonoscopy Findings: diverticulosis internal hemorrhoids Plan: Await Pathology results Repeat Colonoscopy in 1-2 years due to areas of fair prep or earlier if clinically indicated High fiber diet leaflet avoid straining at stool, epsom salts and sitz bath, anusol supps or cream samples also sent for disaccharidase levels Above findings were reviewed with the patient and relevant handouts were provided if indicated.
[2025-04-30 08:48] VITALS: BP 115/64; PULSE 99; RESP 16; TEMP 36.1; O2SAT 99
[2025-04-30 09:03] VITALS: BP 118/76; PULSE 89; RESP 16; TEMP 36.2; O2SAT 100
[2025-04-30 09:56] LABS: CDiff Gene PCR NEGATIVE (Negative)
[2025-04-30 10:53] LABS: E. coli EAEC Not Detected (Not Detect.); E. coli EPEC Not Detected (Not Detect.); E. coli ETEC Not Detected (Not Detect.); E. coli STEC Not Detected (Not Detect.); Shigella sp./EIEC Not Detected (Not Detect.)
[2025-05-07 18:09] LABS: Lactase 18.9 (15.0-45.5); Maltase 216.7 (100.0-224.4); Palatinase 25.3 (5.0-26.3); Sucrase 76.5 (25.0-69.9)
== END 2025-04-30 09:28 | disposition home or self-care (01) ==
PROVIDERS: PCP Nurse Practitioner Family; Visit Provider Internal Medicine Gastroenterology
PROC: (CPT 45380; principal; 2025-04-30 08:10)
DX: Z12.11 Encounter for screening for malignant neoplasm of colon (principal); Z91.199 Patient's noncompliance with other medical treatment and regimen due to unspecified reason; K57.30 Diverticulosis of large intestine without perforation or abscess without bleeding; K64.0 First degree hemorrhoids; K20.90 Esophagitis, unspecified without bleeding; K29.70 Gastritis, unspecified, without bleeding; K29.80 Duodenitis without bleeding; R19.4 Change in bowel habit
CPT/HCPCS: 45380; 43239; 82657; 83631; 87493; 87507; 88305; 88313; 88342; J2003; J2704

== ENCOUNTER → 2025-04-30 06:31 | Outpatient (BNV) | payer OTHER, SELFPAY | PROVIDERS: PCP Nurse Practitioner Family; Visit Provider Internal Medicine Gastroenterology | DX: R19.4 Change in bowel habit (principal); K57.90 Diverticulosis of intestine, part unspecified, without perforation or abscess without bleeding; K64.0 First degree hemorrhoids; K20.90 Esophagitis, unspecified without bleeding; K29.70 Gastritis, unspecified, without bleeding; K29.80 Duodenitis without bleeding | CPT/HCPCS: 43239; 45380 ==

== ENCOUNTER 2025-05-09 12:23 | Outpatient (AMB) | payer OTHER, SELFPAY ==
--- NOTE | 2025-05-09 12:47 | MHC.PC.OV ---
Vital Signs 05/09/25 12:48 Height 5 ft 11 in Weight 190 lb BMI 26.5 BP 120/78 Blood Pressure Location Lt brachial Position Sitting Respiration 16 Pulse 84 Pulse Source Pulse Oximeter Pulse Oximetry (%) 96 Oxygen Delivery Method Room Air Intake Visit Reasons: celiac Instrumentation Supervisor Required: No Accompanied by: Self / Same As Patient Allergies No Known Allergies (No Known Allergies*) Allergy (Verified 05/09/25 12:51) Tobacco use date assessed: 05/09/25 Dental Screening Dental Screen Date: 05/09/25 Did you have a dental visit in the last 12 months?: Yes Did you have a dental problem in the last 6 months where you did not have access to dental care?: No Was dental information given to patient?: Patient has dentist HPI celiac HPI Details Chief Complaint The patient presents for follow-up of hypertension and fatigue. History of Present Illness The patient is a 49 year old male presenting for follow-up of hypertension. He previously experienced fatigue, which has reportedly resolved since he discontinued the use of energy drinks and B supplements, and he now reports having more energy. The patient also has a history of constipation, which is improving with fiber supplementation. He reports an increased frequency of bowel movements to every other day, from every four days previously. dyslipidemia:will recheck lipids Social History - Substance Use: The patient reports he has stopped using energy drinks and B supplements. - Diet: The patient is taking fiber supplements. Health Maintenance Review of Systems - General: Reports fatigue is much better and has more energy since stopping energy drinks and B supplements. - Cardiovascular: Denies chest pain. - Respiratory: Denies shortness of breath. - Gastrointestinal: Reports constipation, which is improving with fiber supplements, with bowel movements now every other day instead of every four days. Physical Exam General: Cooperative, healthy appearing, comfortable, no acute distress and well developed Orientation: Patient oriented x3 Limitations: No limitations Head: Normal to inspection Ears: Hearing grossly normal bilaterally Nose: Normal external nose present Face and sinus: Normal facial exam Eyes: Appearance normal, both eyes and all related structures Neck: Normal visual inspection and Yes full ROM Respiratory: Normal respiratory effort and able to speak in complete sentences. Clear to auscultation bilaterally Cardiovascular: Regular rate and rhythm. Normal S1 and S2 GI: Normal to inspection. Soft to palpation and nontender. Skin: No rashes or lesions noted Neuro: Patient oriented x3 Extremities: Normal to inspection Results Plan 1. Hypertension The patient presented for a follow-up visit for hypertension. Labs will be obtained in the near future for monitoring. 2. Fatigue The patient's fatigue has significantly improved since he stopped consuming energy drinks and B supplements. No further intervention is planned at this time. 3. Constipation The patient's constipation is improving with the use of fiber. He will continue with fiber supplementation for management. Discussion Notes I discussed with the patient that his fatigue has improved considerably since stopping energy drinks and B supplements. We also reviewed that his constipation is better managed with fiber, with bowel movements now occurring every other day. I advised that we will get labs in the near future. Patient Instructions - Your fatigue has gotten much better since you stopped taking energy drinks and B supplements. Continue to avoid these. - Continue taking fiber as it is helping with your constipation. - We will need to get some lab work done soon. [facility] Medical History Constipation Elevated alkaline phosphatase level Anemia Full dentures Numbness and tingling in left hand Personal history of COVID-19 Depression Anxiety TMJ (dislocation of temporomandibular joint) Opioid abuse Back pain Hypertension Bipolar 1 disorder History of gynecomastia (~02/13/20) Surgical History S/P cubital tunnel release (02/03/23) Hx of colonoscopy Hx of hand surgery History of breast lump/mass excision (05/28/20) History of vasectomy Family History Mother History of breast cancer Other Mental health disorder Substance use disorder Social History Household Members: None Housing: Apartment Are you a primary rn progressive care unit to a significant other at home: No Do you presently have visiting nurse or other home services: No Alcohol intake: former Patient Tobacco Use Status: Former Tobacco user Tobacco use type: Smokeless Tobacco Years Smoked: quit 6 years ago e-Cigarette/Vaping Use: Currently Using Second Hand Smoke Exposure: Yes Substance Use Type: Opiates Advance Directives Date on File: 05/28/20 Current occupational status: unemployed 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 1. Little interest or pleasure in doing things: not at all 2. Feeling down, depressed, or hopeless: not at all 3. Trouble falling or staying asleep, or sleeping too much: not at all 4. Feeling tired or having little energy: not at all 5. Poor appetite or overeating: not at all 6. Feeling bad about yourself - or that you are a failure or have let yourself or your family down: not at all 7. Trouble concentrating on things, such as reading the newspaper or watching television: not at all 8. Moving or speaking so slowly that other people could have noticed. Or the opposite - being so fidgety or restless that you have been moving around a lot more than usual: not at all 9. Thoughts that you would be better off or of hurting yourself in some way: not at all Total score: 0 Depression Screening Interpretation: Negative Depression Screening Done: Yes 42183 - PHQ-9 Billing: Yes Source: Developed by Drs. Shaq Metzger, Nory Olmedo, Rodger Tran and colleagues, with an educational lien from [employer]. Thrive Questionnaire Date Thrive assessed: 06/18/24 I am a: Patient What is your living situation today?: I have a steady place to live Within the past 12 months, did the food you bought not last and you didn't have the money to get more?: Sometimes True Within the past 12 months, did you worry whether your food would run out before you got money to buy more?: Sometimes True Do you have trouble paying for medicines?: No Do you have trouble getting transportation to medical appointments?: No Do you have trouble paying your heating and electricity bill?: Yes Do you have trouble taking care of your child, family member or friend?: No Do you have trouble with day-to-day activities such as bathing, preparing meals, shopping, managing finances, etc.?: No Are you currently unemployed and looking for a job?: Yes Are you interested in more education?: No Please select the resources that you would like help with: Housing/Custodial Currently or been in a relationship where the following occur: No concerns reported THRIVE Score: 3 NABIL-7 AMB Questionnaire NABIL-7 Date NABIL - 7 assessed: 05/09/25 Feeling nervous, anxious, or on edge: 0 = Not at all Not being able to stop or control worryin = Not at all Worrying too much about different things: 0 = Not at all Trouble relaxin = Not at all Being so restless that it is hard to sit still: 0 = Not at all Becoming easily annoyed or irritable: 0 = Not at all Feeling afraid as if something awful might happen: 0 = Not at all Total NABIL-7 score (0-4 normal; 5-9 mild; 10-14 moderate; 15-21 severe): 0 Source: Developed by Drs. Shaq Metzger, Nory Olmedo, Rodger Tran and colleagues, with an educational lien from [employer]. NABIL-7 Assessment Billing NABIL-7 Assessment Tool: NABIL-7 Assessment 89128 Physical exam (Primary Care) Vital Signs: Last Vital Signs Pulse 84 05/09/25 12:48 Resp 16 05/09/25 12:48 BP 120/78 05/09/25 12:48 Pulse Ox 96 05/09/25 12:48 Oxygen Delivery Method Room Air 05/09/25 12:48 BMI result Body Mass Index 26.5 Tobacco/Smoking Status: Tobacco use Status Tobacco use date assessed 05/09/25 05/09/25 12:52 Patient Tobacco Use Status Former Tobacco user 05/09/25 12:52 Tobacco use type Smokeless Tobacco 05/09/25 12:52 e-Cigarette/Vaping Use Currently Using 05/09/25 12:52 PHQ-9: PHQ-9 Score PHQ-9: Total score 0 05/09/25 12:52 Depression Screening Interpretation: Negative Thrive Assessment: Date of Thrive Assessment Date Thrive assessed 06/18/24 05/09/25 12:52 Currently or been in a relationship where the following occur: No concerns reported Coding Level of Care Code Est Pt Level 3 (80862) Diagnoses Dyslipidemia E78.5 Fatigue R53.83 Vitamin D deficiency E55.9 Screening PSA (prostate specific antigen) Z12.5 Additional Codes NABIL-7 Assessment Billing - NABIL-7 Assessment Tool: NABIL-7 Assessment 16095 ([id number]) PHQ-9 - 86624 - PHQ-9 Billing: Yes ([id number]) Assessment & Plan Assessment & Plan (1) Dyslipidemia: Code(s): E78.5 - Hyperlipidemia, unspecified Category: Medical (2) Fatigue: Code(s): R53.83 - Other fatigue Category: Medical (3) Vitamin D deficiency: Code(s): E55.9 - Vitamin D deficiency, unspecified Category: Medical (4) Screening PSA (prostate specific antigen): Code(s): Z12.5 - Encounter for screening for malignant neoplasm of prostate Category: Medical Plan . Orders: Orders Comprehensive [place]. Panel Fast Today E78.5 - Hyperlipidemia, unspecified, R53.83 - Other fatigue TSH reflex Free T4 Today E78.5 - Hyperlipidemia, unspecified, R53.83 - Other fatigue Vitamin D 25-OH Total Today E55.9 - Vitamin D deficiency, unspecified Prostate Specific Antigen Scr Today Z12.5 - Encounter for screening for malignant neoplasm of prostate Complete Blood Count Auto Diff Today E78.5 - Hyperlipidemia, unspecified, R53.83 - Other fatigue UA CC w/rflx Micro + Cult Today E78.5 - Hyperlipidemia, unspecified, R53.83 - Other fatigue Lipid Panel Today E78.5 - Hyperlipidemia, unspecified, R53.83 - Other fatigue
[2025-05-09 12:48] VITALS: BP 120/78; PULSE 84; RESP 16; O2SAT 96; BMI 26.5
== END 2025-05-09 13:24 | disposition home or self-care (01) ==
LOC: HO.HMCC 12:24
PROVIDERS: PCP Nurse Practitioner Family; Visit Provider Nurse Practitioner Family
DX: E78.5 Hyperlipidemia, unspecified (principal); R53.83 Other fatigue; E55.9 Vitamin D deficiency, unspecified; Z12.5 Encounter for screening for malignant neoplasm of prostate

== ENCOUNTER → 2025-05-09 12:23 | Outpatient (BNVA) | payer OTHER, SELFPAY | PROVIDERS: PCP Nurse Practitioner Family; Visit Provider Nurse Practitioner Family | DX: I10 Essential (primary) hypertension (principal); R53.83 Other fatigue; K59.00 Constipation, unspecified; E78.5 Hyperlipidemia, unspecified; E55.9 Vitamin D deficiency, unspecified | CPT/HCPCS: 96127; 99212 ==

== ENCOUNTER 2025-05-15 12:42 | Outpatient (AMB) | payer OTHER, SELFPAY ==
[2025-05-15 13:08] VITALS: BP 112/74; PULSE 93; BMI 26.5
--- NOTE | 2025-05-15 13:08 | MHC.OFFVIS ---
Vital Signs 05/15/25 13:08 Height 5 ft 11 in Weight 190 lb BMI 26.5 BP 112/74 Blood Pressure Location Lt brachial Position Sitting Pulse 93 Intake Visit Reasons: s/p double Intake Note: Patient follow up for Constipation, EGD/Colonoscopy results. Patient cc: abdominal bloating, and acid reflux on and off. Denies any other GI issues. 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 Patient is accompanied by his partner. Follow-up visit to review the results of a recent upper endoscopy and colonoscopy and discuss persistent nausea. The procedures were performed on April 30. The upper endoscopy, prompted by nausea, revealed esophagitis, gastritis, and duodenitis. The screening colonoscopy was complete but had a fair preparation, showing sigmoid diverticulosis and grade 1 internal hemorrhoids, with no polyps or evidence of cancer noted. A repeat colonoscopy was recommended in 1-2 years due to the suboptimal prep. The patient reports persistent daily nausea, which has slightly improved since February, but never fully resolves. He describes the sensation as nausea without the feeling of needing to vomit. He reports sometimes feeling a burning sensation with bowel movements. He is currently taking omeprazole 20 mg in the morning without food. Gallbladder remains present and a CT scan from June 2023 showed it was normal. His history is significant for elevated ferritin. He has a history of tiredness attributed to issues with iron absorption and previously saw a district branch manager, though not recently. His stomach problems reportedly began after a course of antibiotics for a E coli infection two years ago. [facility] Medical History (Updated 05/16/25 @ 14:39 by Loren Gibson CNP) Elevated ferritin level Constipation Elevated alkaline phosphatase level Anemia Full dentures Numbness and tingling in left hand Personal history of COVID-19 Depression Anxiety TMJ (dislocation of temporomandibular joint) Opioid abuse Back pain Hypertension Bipolar 1 disorder History of gynecomastia (~02/13/20) Surgical History History of esophagogastroduodenoscopy (EGD) S/P cubital tunnel release (02/03/23) Hx of colonoscopy Hx of hand surgery History of breast lump/mass excision (05/28/20) History of vasectomy Family History Mother History of breast cancer Other Mental health disorder Substance use disorder Social History Household Members: None Housing: Apartment Are you a primary daycare teacher to a significant other at home: No Do you presently have visiting nurse or other home services: No Alcohol intake: former Patient Tobacco Use Status: Former Tobacco user Tobacco use type: Smokeless Tobacco Years Smoked: quit 6 years ago e-Cigarette/Vaping Use: Currently Using Second Hand Smoke Exposure: Yes Substance Use Type: Opiates Advance Directives Date on File: 05/28/20 Current occupational status: unemployed 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 Gender identity: Male Cognitive needs: No Hearing needs: No Vision needs: No Review of Systems Const Reports as per HPI ENT Reports as per HPI Card Reports as per HPI Resp Reports as per HPI GI Reports as per HPI Reports as per HPI Physical Exam Vital Signs: Last Vital Signs Pulse 93 05/15/25 13:08 BP 112/74 05/15/25 13:08 BMI result Body Mass Index 26.5 Const General: healthy appearing, no acute distress and well developed Nutritional Appearance: average body habitus Orientation/consciousness: patient oriented x3 HEENT Head: Yes normal to inspection, Yes normocephalic and Yes atraumatic Face and sinus: Yes normal facial exam Eyes General: appearance normal, both eyes and all related structures Neck Neck: Yes normal visual inspection Resp Effort & Inspection: normal respiratory effort, able to speak in complete sentences, no tracheal deviation and symmetric chest movement Cardio Jugular venous distension: no JVD Neuro General: patient oriented x3 Gait exam (Neuro): Normal gait present Psych Appearance: grossly normal Mental Status: mental status grossly normal Speech and movement: Normal speech and movement present Affect: normal affect Attitude: cooperative Thought process: Normal thought process present Thought content: Normal thought content present Insight: Good insight present (Psych) Judgement: Good judgement present (Psych) Results Reviewed Results Reviewed: Operative Note Date of Service: 04/30/25 Narrative: Operative Information Procedure Description: EGD, Colonoscopy Indication: abn bowel habits Anesthesia: MAC FLEXIBLE TRANSORAL UPPER GASTROINTESTINAL ENDOSCOPY AND COLONOSCOPY PROCEDURE NOTE UPPER ENDOSCOPY Consent: Indications for the procedure and potential complications of bleeding, perforation, reaction to medications and missed diagnosis were discussed with the patient and informed consent was obtained. Instrument: Olympus GIF H 190 J mid size upper endoscope Monitoring: Vital signs and clinical assessment, continuous EKG monitoring, Pulse oximetry, Carbon Dioxide monitoring and blood pressure monitoring were done throughout the procedure. Procedure: The patient was placed in the left lateral decubitis position and pre-procedure medications were administered and a bite block was placed. The endoscope was inserted into the mouth and advanced under direct vision to the third part of duodenum. A careful inspection was made as the upper endoscope was withdrawn including a retroflexed examination of the proximal stomach; Findings and interventions are described below. Findings: Larynx:normal Esophagus: GE junction at 40 cm, diaphragm hiatus at 40 cm, mild esophagitis, bx taken from GWEJ, and distal esophagus Stomach: Patchy erythema. Biopsies were obtained. Grade 2 flap valve on retroflexed examination of the cardia. Duodenum: Mild bulbar duodenitis, bx taken Intervention: Biopsies as noted above, COLONOSCOPY Instrument: Olympus variable stiffness pediatric scope 190L- changed to adult scope due to redundant colon Colonoscopy Monitoring: Vital signs and clinical assessment, continuous EKG monitoring, Pulse oximetry, Carbon Dioxide monitoring and blood pressure monitoring were done throughout the procedure. Colon withdrawal time was 11 minutes. Procedure: The patient was placed in the left lateral decubitis position and pre-procedure medications were administered. After a digital rectal examination of the ano-rectum, the video colonoscope was inserted into the rectum and advanced through the colon to the cecum/TI. The colonoscope was slowly withdrawn in a retrograde panoramic fashion and the colon mucosa was carefully examined including a retroflexed view of the rectum. Findings and interventions are described below. Procedure Difficulty: difficult Findings: Terminal Ileum-normal, bx taken Random bx taken from right and left colon Cecum:normal Ascending Colon: normal Transverse Colon -normal Descending Colon:normal Sigmoid Colon: mild diverticulosis Rectum: Retroflexion was not done due to position of patient (on back) and poor air insufflation, internal hemorrhoids, grade I noted on forward view --mucosa granular appearing, bx taken Anorectum - normal Colon preparation: [place] Bowel Preparation Scale Right colon; 1-2 Transverse colon: 2 Left colon; 1-2 (0 = Unprepared colon segment with mucosa not seen due to solid stool that cannot be cleared. 1 = Portion of mucosa of the colon segment seen, but other areas of the colon segment not well seen due to staining, residual stool and/or opaque liquid. 2 = Minor amount of residual staining, small fragments of stool and/or opaque liquid, but mucosa of colon segment seen well. 3 = Entire mucosa of colon segment seen well with no residual staining, small fragments of stool or opaque liquid) Impression and Post Procedure Diagnosis: Endoscopy Findings: gastritis esophagitis duodenitis Colonoscopy Findings: diverticulosis internal hemorrhoids Plan: Await Pathology results Repeat Colonoscopy in 1-2 years due to areas of fair prep or earlier if clinically indicated High fiber diet leaflet avoid straining at stool, epsom salts and sitz bath, anusol supps or cream samples also sent for disaccharidase levels Above findings were reviewed with the patient and relevant handouts were provided if indicated. PATHOLOGY Collected: 04/30/25 Location: [facility] Received: 04/30/25 Diagnosis A. Duodenum, biopsy: Duodenal mucosa with focal mild villous blunting and chronic/non-specific duodenitis. B. Stomach, biopsy: Gastric antral and body mucosa with focal minimal chronic inactive inflammation; negative for H. pylori, intestinal metaplasia and dysplasia, and fragment of duodenal mucosa consistent with contaminant. C. Esophagogastric junction, biopsy: Squamous mucosa with hyperplasia and focal intraepithelial neutrophils and eosinophils (up to 3 per high-power field, consistent with esophagitis; negative for intestinal metaplasia and dysplasia. D. Esophagus, distal, biopsy: Squamous mucosa with no specific change and detached fragments of columnar mucosa; negative for intestinal metaplasia and dysplasia. E. Colon, right, biopsy: Colonic mucosa with no specific change. F. Terminal ileum, biopsy: Ileal mucosa with no specific change. D. Colon, left, biopsy: Colonic mucosa with lymphoid aggregate, minor crypt distortion, and scattered pigmented lamina propria macrophages, otherwise no specific change. H. Colon, rectum, biopsy: Colonic mucosa with lymphoid aggregates and pigmented lamina propria macrophages, otherwise no specific change. Comment: Appearances suggest melanosis coli. Clinical History Pre-Op Dx: abdominal distension, nausea, screening Post-Op Dx: Duodenitis, gastritis, mild esophagitis, hemorrhoid Assessment & Plan Assessment & Plan (1) Nausea: Comment: 04/30/25 EGD-gastritis, esophagitis, duodenitis Code(s): R11.0 - Nausea Category: Medical Plan: To address the inflammation found on endoscopy and persistent nausea, the patient's pantoprazole will be increased from 20 mg once daily to 40 mg once daily for 8 weeks. taken as 20 mg BID. - An abdominal ultrasound will be ordered to evaluate the gallbladder for stones or inflammation as a possible etiology for his nausea. - advised diet as tolerated and adequate hyrdation with water (2) Elevated ferritin level: Code(s): R79.89 - Other specified abnormal findings of blood chemistry Category: Medical Plan: Consistently elevated ferritin w/normal saturation and iron level. Suspect inflammatory induce-history of REGINA (opioids). Will exclude metabolic etiologies with labs and imaging as discussed. FIB-4 score of 0.97, excludes advance fibrosis. - The ordered abdominal ultrasound will also assess the liver, particularly for signs of fatty liver disease. - The patient will complete outstanding lab work to further assess his liver health. - Would consider HFE genotype for levels nearing the 1000s (3) Screening for colon cancer: Comment: 04/30/25 Colonoscopy complete with fair prep- diverticulosis (Sigmoid), grade I internal hemorrhoids. Repeat Colonoscopy in 1-2 years due to areas of fair prep or earlier if clinically indicated. Code(s): Z12.11 - Encounter for screening for malignant neoplasm of colon Category: Medical Plan: Due to a fair colonoscopy preparation which may have obscured visualization, a repeat colonoscopy is recommended in 1-2 years. - An extended prep protocol will be planned for the future procedure to ensure adequate bowel cleansing. -The patient was advised to avoid prolonged sitting, particularly on the toilet, and to be mindful when lifting heavy objects for hemorrhoidal excerbations. Plan Follow-up after US or sooner as needed Time: I spent a total of 45 minutes on the date of encounter which includes: Preparing to see the patient (reviewed previous documentation, test results and medical history) Performing a medically appropriate exam and/or evaluation Ordering medications, tests, and procedures Documenting clinical information in the health record Orders: Orders US abdomen complete 05/15/25 R11.0 - Nausea, R79.89 - Other specified abnormal findings of blood chemistry IRON PROFILE 05/15/25 R79.89 - Other specified abnormal findings of blood chemistry Transglutaminase Ab IgG 05/15/25 R79.89 - Other specified abnormal findings of blood chemistry C Reactive Protein Today R79.89 - Other specified abnormal findings of blood chemistry Hemoglobin A1c Today R79.89 - Other specified abnormal findings of blood chemistry Medications: Changed From omeprazole 20 mg PO DAILY 90 caps 1RF To omeprazole Take one tablet twice daily, on empty stomach. Delay eating 30 minutes. 20 mg PO BID 180 caps 0RF Coding Level of Care Code Established Pt Est Pt Level 5 (01409) Patient Type Established Diagnoses Nausea R11.0 Elevated ferritin level R79.89 Screening for colon cancer Z12.11
== END 2025-05-15 14:24 | disposition home or self-care (01) ==
LOC: HO.HGI 12:43
PROVIDERS: PCP Nurse Practitioner Family; Visit Provider Nurse Practitioner Family
DX: R11.0 Nausea (principal); R79.89 Other specified abnormal findings of blood chemistry
CPT/HCPCS: 99215

== ENCOUNTER → 2025-05-15 12:42 | Outpatient (BNVA) | payer OTHER, SELFPAY | PROVIDERS: PCP Nurse Practitioner Family; Visit Provider Nurse Practitioner Family | DX: R79.89 Other specified abnormal findings of blood chemistry (principal); R11.0 Nausea; Z12.11 Encounter for screening for malignant neoplasm of colon; Z79.899 Other long term (current) drug therapy | CPT/HCPCS: 99212 ==